=== PATIENT | female | born 1950 | race Caucasian/White ===

== ENCOUNTER → 2016-11-13 | Outpatient (CLI) | payer MEDICARE, MEDICAID ==
--- NOTE | 2016-11-13 12:52 | RAD ---
Indication renal failure. The history of right nephrectomy several decades earlier is noted. Grayscale imaging of the left kidney was performed. No prior imaging of the kidneys is available. The left kidney measures 12.2 x 4.6 x 6.5 cm and appears unremarkable showing no evidence of hydronephrosis or mass. The urinary bladder appeared grossly normal. IMPRESSION: Morphologically normal left kidney. Surgical absence of the right kidney
== END | disposition home or self-care (01) ==
LOC: US 12:07
PROVIDERS: ATTEND Internal Medicine Nephrology
DX: N17.9 Acute kidney failure, unspecified (principal); Z90.5 Acquired absence of kidney
CPT/HCPCS: 76775

== ENCOUNTER 2017-01-16 14:19 | Inpatient (IN) | payer MEDICARE, MEDICAID ==
[~2017-01-16] VITALS: Ht 160 cm; Wt 126.1 kg
[2017-01-16] MEDS ORDERED: IV NORMAL SALINE 1000ML BAG 1,000 ML IV SCH (15:15)
[2017-01-16] MEDS ORDERED: ONDANSETRON PF 4 MG/2 ML VIAL. IV ONE (15:15)
--- NOTE | 2017-01-16 15:23 | EKG ---
[facility] [address] [place] [address] Test Date: 2017-01-16 Test Time: 14:33:08 Pat Name: SILVERIO PETERSEN Department: Room: Gender: F [employer] Specialist: : 1950 Requested By: FIFI CARTWRIGHT Order Number: [id number] Reading MD: Measurements Intervals [place] Rate: 84 P: 42 MT: 146 QRS: 39 QRSD: 82 T: 34 QT: 344 QTc: 410 Interpretive Statements SINUS RHYTHM QRS(T) CONTOUR ABNORMALITY CONSIDER ANTEROLATERAL MYOCARDIAL DAMAGE RI6.01 Unconfirmed report No previous ECG available for comparison
[2017-01-16] MEDS: FENTANYL PF 100 MCG/2 ML VIAL. IV PRN (15:51)
--- NOTE | 2017-01-16 16:02 | RAD ---
EXAM: Two view abdomen with one view chest HISTORY: Epigastric pain. COMPARISON: None. FINDINGS: A frontal view of the chest and supine/upright views of the abdomen are obtained. There are no confluent infiltrates. There is no pneumothorax or pleural effusion. The heart is not enlarged. There are atherosclerotic calcifications of the aorta. There is no pneumoperitoneum. There are no distended small bowel loops or significant air-fluid levels. There is gas distally. There are surgical clips in the right upper quadrant and right paraspinal region. There are moderate degenerative changes of the lower lumbar spine. IMPRESSION: 1. No confluent infiltrates. 2. No evidence of obstruction.
--- NOTE | 2017-01-16 16:14 | PHYS DOC ---
Past Medical History Past Medical History: CHF, Depression, Diabetes-Type II, Hypertension, Hypothyroid, Other Additional Past Medical Histor: NEUROPATHY Past Surgical History: Cholecystectomy, Other Additional Past Surgical Histo: R KIDNEY REMOVED Additional Information: SMOKES E-CIGARETTE Alcohol Use: None Drug Use: None Adult General Chief Complaint Chief Complaint: ABDOMINAL PAIN HPI HPI Patient is a 66 year old female who presents with complaint of abdominal pain. Patient states that her pain started this morning upon awakening. Patient states pain is located across her upper abdomen. Patient says pain is dull and rates pain as 8 out of 10 currently. Patient states that she is having 10 out of 10 pain in her right foot with weightbearing. Patient states that she is unable to ambulate at this time due to pain. Patient denies any redness or swelling to the foot. Patient denies any injuries. Patient takes gabapentin for neuropathy and states that she has not missed any doses. Patient states that she has been diagnosed recently with heart murmur and was supposed to get an echocardiogram today as ordered by Dr. Fraire but denies any known heart problems. On review of patient's chart, the patient has history of congestive heart failure, hypertension, diabetes mellitus, and diabetic neuropathy. Review of Systems Review of Systems Constitutional: Denies fever or chills [] Eyes: Denies change in visual acuity, redness, or eye pain [] HENT: Denies nasal congestion or sore throat [] Respiratory: Denies cough or shortness of breath [] Cardiovascular: Denies chest pain or edema [] GI: Abdominal pain, denies nausea, vomiting, bloody stools or diarrhea [] : Denies dysuria or hematuria [] Musculoskeletal: Denies back pain or joint pain [] Integument: Denies rash or skin lesions [] Neurologic: Neuropathy, denies headache, focal weakness or sensory changes [] Current Medications Current Medications Current Medications Medications (Trade) Dose Ordered Sig/[place] Start Time Stop Time Status Last Admin Dose Admin Fentanyl Citrate 50 mcg 50 mcg PRN Q15MIN PRN 01/16/17 15:15 01/17/17 15:14 01/16/17 15:51 50 MCG Ondansetron HCl (Zofran) 4 mg 1X ONCE 01/16/17 15:15 01/16/17 15:22 DC 01/16/17 15:50 4 MG Sodium Chloride (Iv Sodium Chloride 0.9% 1000ml Bag) 1,000 ml @ 100 mls/hr Q10H 01/16/17 15:15 01/17/17 01:14 01/16/17 15:50 100 MLS/HR Allergies Allergies Allergies Coded Allergies Type Severity Reaction Last Updated Verified castor oil Allergy Intermediate rash 08/21/15 No Physical Exam Physical Exam Constitutional: Alert, afebrile, no acute distress. [] HENT: Normocephalic, atraumatic, bilateral external ears normal, oropharynx moist, no oral exudates, nose normal. [] Eyes: PERRLA, EOMI, conjunctiva normal, no discharge. [] Neck: Normal range of motion, no tenderness, supple, no stridor. [] Cardiovascular:Heart rate regular rhythm, no murmur [] Lungs & Thorax: Bilateral breath sounds clear to auscultation [] Abdomen: Bowel sounds normal, soft, epigastric tenderness palpation, no guarding or rebound tenderness, no masses, no pulsatile masses. [] Skin: Warm, dry, no erythema, no rash. [] Back: No tenderness, no CVA tenderness. [] Extremities: No obvious deformities to the lower extremities, hyperesthesia along the ventral aspect of the right foot, no erythema, 2+ pitting edema in the bilateral lower extremities. [] Neurologic: Alert and oriented X 3, normal motor function, normal sensory function, no focal deficits noted. [] Current Patient Data Vital Signs Vital Signs Date Time Temp Pulse Resp B/P Pulse Ox O2 Delivery O2 Flow Rate FiO2 01/16/17 14:19 98.3 90 20 171/66 97 Room Air 98.3 Lab Values Laboratory Tests Test 01/16/17 15:53 01/16/17 16:08 White Blood Count 8.8x10^3/uL (4.0-11.0) Red Blood Count 4.02x10^6/uL (3.50-5.40) Hemoglobin 12.2g/dL (12.0-15.5) Hematocrit 37.8% (36.0-47.0) Mean Corpuscular Volume 94fL (79-100) Mean Corpuscular Hemoglobin 30pg (25-35) Mean Corpuscular Hemoglobin Concent 32g/dL (31-37) Red Cell Distribution Width 12.9% (11.5-14.5) Platelet Count 145x10^3/uL (140-400) Neutrophils (%) (Auto) 56% (31-73) Lymphocytes (%) (Auto) 31% (24-48) Monocytes (%) (Auto) 9% (0-9) Eosinophils (%) (Auto) 4% (0-3) H Basophils (%) (Auto) 1% (0-3) Neutrophils # (Auto) 5.0x10^3uL (1.8-7.7) Lymphocytes # (Auto) 2.7x10^3/uL (1.0-4.8) Monocytes # (Auto) 0.7x10^3/uL (0.0-1.1) Eosinophils # (Auto) 0.3x10^3/uL (0.0-0.7) Basophils # (Auto) 0.1x10^3/uL (0.0-0.2) Sodium Level 144mmol/L (136-145) Potassium Level 4.5mmol/L (3.5-5.1) Chloride Level 105mmol/L (98-107) Carbon Dioxide Level 30mmol/L (21-32) Anion Gap 9 (6-14) Blood Urea Nitrogen 69mg/dL (7-20) H Creatinine 2.1mg/dL (0.6-1.0) H Estimated GFR (Cockcroft-Gault) 23.5 BUN/Creatinine Ratio 33 (6-20) H Glucose Level 115mg/dL (70-99) H Calcium Level 9.2mg/dL (8.5-10.1) Total Bilirubin 0.3mg/dL (0.2-1.0) Aspartate Amino Transferase (AST) 18U/L (15-37) Alanine Aminotransferase (ALT) 17U/L (14-59) Alkaline Phosphatase 67U/L (46-116) Creatine Kinase 126U/L (26-192) Creatine Kinase MB (Mass) 0.8ng/mL (0.0-3.6) Creatine Kinase MB Relative Index 0.6% (0-4) Troponin I Quantitative < 0.017ng/mL (0.000-0.055) Total Protein 6.7g/dL (6.4-8.2) Albumin 3.1g/dL (3.4-5.0) L Albumin/Globulin Ratio 0.9 (1.0-1.7) L Lipase 178U/L (73-393) Urine Color Yellow Urine Clarity Cloudy Urine pH 6.5 Urine Specific [place] 1.015 Urine Protein Negativemg/dL (NEG-TRACE) Urine Glucose (UA) Negativemg/dL (NEG) Urine Ketones (Stick) Negativemg/dL (NEG) Urine Blood Negative (NEG) Urine Nitrite Negative (NEG) Urine Bilirubin Negative (NEG) Urine Urobilinogen Dipstick 0.2mg/dL (0.2 mg/dL) Urine Leukocyte Esterase Large (NEG) Urine RBC 0/HPF (0-2) Urine WBC 11-20/HPF (0-4) Urine Squamous Epithelial Cells Mod/LPF Urine Amorphous Sediment Present/HPF Urine Bacteria Moderate/HPF (0-FEW) Urine Mucus Mod/LPF Laboratory Tests 01/16/17 15:53 Laboratory Tests 01/16/17 15:53 EKG EKG Interpreted by me: Heart rate 84, sinus rhythm, normal intervals, normal axis, no acute ST/T-wave abnormalities present [] Radiology/Procedures Radiology/Procedures [facility] [address] [place] [address] IMAGING REPORT Signed PATIENT: SILVERIO PETERSEN ACCOUNT: [id number] : 1950 LOCATION: ER AGE: 66 SEX: F EXAM STATUS: REG ER ORD. PHYSICIAN: FIFI CARTWRIGHT MD REASON: upper abdominal pain PROCEDURE: ACUTE ABDOMEN SERIES EXAM: Two view abdomen with one view chest HISTORY: Epigastric pain. COMPARISON: None. FINDINGS: A frontal view of the chest and supine/upright views of the abdomen are obtained. There are no confluent infiltrates. There is no pneumothorax or pleural effusion. The heart is not enlarged. There are atherosclerotic calcifications of the aorta. There is no pneumoperitoneum. There are no distended small bowel loops or significant air-fluid levels. There is gas distally. There are surgical clips in the right upper quadrant and right paraspinal region. There are moderate degenerative changes of the lower lumbar spine. IMPRESSION: 1. No confluent infiltrates. 2. No evidence of obstruction. DICTATED and SIGNED BY: FRANKLYN WEBER MD DATE: 01/16/17 0713 CC: FIFI CARTWRIGHT MD; Chad ALVARADO MD ~ [] Course & Med Decision Making Course & Med Decision Making Pertinent Labs and Imaging studies reviewed. (See chart for details) The patient was given fentanyl for pain in the emergency department. Despite treatment, the patient is unable to bear weight on her right foot. Patient was found have evidence of urinary tract infection. The patient states that she is currently unable to get herself to the restroom due to the pain in her foot and her sister also states that the patient is unable to be cared for at home currently. I spoke with Dr. Mayer who is on-call for Dr. Alvarado. He accepted care of patient in hospital for further treatment. Patient will be started on IV Rocephin for treatment of urinary tract infection. Dr. Mayer also confirm that the patient's BUN and creatinine were stable from previous lab draw in August 2016. Dragon Disclaimer Dragon Disclaimer This electronic medical record was generated, in whole or in part, using a voice recognition dictation system. Departure Departure Impression: Primary Impression: Right foot pain Additional Impressions: Diabetic neuropathy Urinary tract infection Chronic kidney disease, stage IV (severe) Congestive heart failure Disposition: ADMITTED INPATIENT Admitting Physician: Antoni Alvarado Condition: STABLE Referrals: Chad ALVARADO MD (PCP) Problem Qualifiers Additional Impressions: Diabetic neuropathy Diabetes mellitus type: type 2 Diabetes mellitus complication detail: diabetic polyneuropathy Qualified Code: E11.42 - Type 2 diabetes mellitus with diabetic polyneuropathy Urinary tract infection Urinary tract infection type: site unspecified Hematuria presence: without hematuria Qualified Code: N39.0 - Urinary tract infection, site not specified Congestive heart failure Congestive heart failure type: unspecified congestive heart failure type Congestive heart failure chronicity: chronic Qualified Code: I50.9 - Heart failure, unspecified FIFI CARTWRIGHT MD Jan 16, 2017 16:14
[2017-01-16 16:16] LABS: BASO # 0.1 x10^3/uL (0.0-0.2); BASO % 1 % (0-3); EOS % 4 % (0-3); HEMATOCRIT 37.8 % (36.0-47.0); HEMOGLOBIN 12.2 g/dL (12.0-15.5); LYMPH # 2.7 x10^3/uL (1.0-4.8); LYMPH % 31 % (24-48); MEAN CORPUSCULAR HEMOGLOBIN 30 pg (25-35); MEAN CORPUSCULAR HGB CONC 32 g/dL (31-37); MEAN CORPUSCULAR VOLUME 94 fL (79-100); MONO % 9 % (0-9); NEUT % 56 % (31-73); PLATELET COUNT 145 x10^3/uL (140-400); RED BLOOD COUNT 4.02 x10^6/uL (3.50-5.40); RED CELL DISTRIBUTION WIDTH 12.9 % (11.5-14.5); WHITE BLOOD COUNT 8.8 x10^3/uL (4.0-11.0)
[2017-01-16 16:32] LABS: BILIRUBIN,URINE NEGATIVE (NEG); GLUCOSE,URINE NEGATIVE (NEG); NITRITE,URINE NEGATIVE (NEG); PH,URINE 6.5; PROTEIN,URINE NEGATIVE (NEG-TRACE); UROBILINOGEN,URINE 0.2 mg/dL (0.2 mg/dL)
[2017-01-16 16:33] LABS: CALCIUM 9.2 mg/dL (8.5-10.1); CREATININE 2.1 mg/dL (0.6-1.0); GFR 23.5; POTASSIUM 4.5 mmol/L (3.5-5.1)
[2017-01-16 16:39] LABS: ALBUMIN 3.1 g/dL (3.4-5.0); ALBUMIN/GLOBULIN RATIO 0.9 (1.0-1.7); TOTAL BILIRUBIN 0.3 mg/dL (0.2-1.0); TOTAL PROTEIN 6.7 g/dL (6.4-8.2)
[2017-01-16 16:47] LABS: CKMB INDEX 0.6 % (0-4); CKMB MASS 0.8 ng/mL (0.0-3.6)
[2017-01-16 16:50] LABS: BACTERIA,URINE MODERATE /HPF (0-FEW); RBC,URINE 0 /HPF (0-2); SQUAMOUS EPITHELIAL CELL,UR MOD /LPF
[2017-01-16] MEDS ORDERED: FENTANYL PF 100 MCG/2 ML VIAL. IV PRN (17:15)
[2017-01-16] MEDS ORDERED: ONDANSETRON PF 4 MG/2 ML VIAL. IV PRN (17:15)
[2017-01-16] MEDS ORDERED: ACETAMINOPHEN 325 MG TABLET. PO PRN (17:15)
[2017-01-16] MEDS: CEFTRIAXONE SODIUM 1 GM in IV NORMAL SALINE 50ML 50 ML IV SCH (17:35)
[2017-01-16 19:00] VITALS: BP 124/55
[2017-01-16] MEDS: IV NORMAL SALINE 1000ML BAG 1,000 ML IV SCH (19:00)
[2017-01-16] MEDS ORDERED: LEVO25TA4 PO (20:04)
[2017-01-16] MEDS ORDERED: FURO40TA4 PO (20:04)
[2017-01-16] MEDS ORDERED: CITA10TA4 PO (20:04)
[2017-01-16] MEDS ORDERED: INSU100V8 SQ (20:04)
[2017-01-16] MEDS ORDERED: EZET1TAB4 PO (20:04)
[2017-01-16] MEDS ORDERED: GABA600T2 PO (20:04)
[2017-01-16] MEDS ORDERED: RIVA15TA PO (20:04)
[2017-01-16] MEDS ORDERED: INSU100V31 SQ (20:04)
[2017-01-16] MEDS ORDERED: GABA-586 PO (20:04)
[2017-01-16] MEDS ORDERED: POTA20TA82 PO (20:04)
[2017-01-16] MEDS ORDERED: INSU100C4 SQ (20:04)
[2017-01-16] MEDS ORDERED: LISI10TA2 PO (20:04)
[2017-01-16] MEDS ORDERED: METO5TAB4 PO (20:09)
[2017-01-16] MEDS ORDERED: ACET650T10 PO (20:10)
[2017-01-16] MEDS ORDERED: GABAPENTIN 300 MG CAPSULE. PO SCH (21:30)
[2017-01-16] MEDS: ACETAMINOPHEN 650 MG TABLET.ER PO SCH (22:35)
[2017-01-16] MEDS: SIMVASTATIN 20 MG TABLET PO SCH (22:36)
[2017-01-16] MEDS: CITALOPRAM 10 MG TABLET. PO SCH (22:36)
[2017-01-16] MEDS: LISINOPRIL 10 MG TABLET PO SCH (22:36)
[2017-01-16] MEDS: EZETIMIBE 10 MG TABLET PO SCH (22:37)
[2017-01-16] MEDS: INSULIN DETEMIR 300 UNITS/3 ML INSULN.PEN. SQ SCH (22:45)
[2017-01-16 23:40] VITALS: BP 102/63
[2017-01-17] MEDS: IV NORMAL SALINE 1000ML BAG 1,000 ML IV SCH ×2 (03:15→15:16)
[2017-01-17 03:16] VITALS: BP 116/58
[2017-01-17] MEDS: LEVOTHYROXINE 25 MCG TABLET. PO SCH (06:20)
[2017-01-17 06:27] LABS: BASO # 0.1 x10^3/uL (0.0-0.2); BASO % 1 % (0-3); EOS % 4 % (0-3); HEMATOCRIT 33.4 % (36.0-47.0); HEMOGLOBIN 11.1 g/dL (12.0-15.5); LYMPH # 3.2 x10^3/uL (1.0-4.8); LYMPH % 34 % (24-48); MEAN CORPUSCULAR HEMOGLOBIN 31 pg (25-35); MEAN CORPUSCULAR HGB CONC 33 g/dL (31-37); MEAN CORPUSCULAR VOLUME 92 fL (79-100); MONO % 9 % (0-9); NEUT % 53 % (31-73); PLATELET COUNT 143 x10^3/uL (140-400); RED BLOOD COUNT 3.62 x10^6/uL (3.50-5.40); RED CELL DISTRIBUTION WIDTH 13.1 % (11.5-14.5); WHITE BLOOD COUNT 9.4 x10^3/uL (4.0-11.0)
[2017-01-17 06:40] LABS: CALCIUM 8.4 mg/dL (8.5-10.1); CREATININE 2.2 mg/dL (0.6-1.0); GFR 22.3; POTASSIUM 4.5 mmol/L (3.5-5.1)
[2017-01-17] MEDS: INSULIN ASPART 300 UNITS/3 ML INSULN.PEN SQ SCH ×3 (07:30→19:54)
[2017-01-17 07:46] VITALS: BP 100/41
--- NOTE | 2017-01-17 08:23 | RAD ---
Right foot, 3 views, 01/16/2017: History: Foot pain There is moderate patchy bony demineralization. There are mild to moderate scattered degenerative changes, most prominent at the midfoot level. Mild deformity of the base of the fifth metatarsal is compatible with an old healed fracture. There also appears to be old posttraumatic changes at the medial malleolar level. No acute fracture or dislocation is identified. There is a moderate size inferior calcaneal spur. Arterial calcifications are present. There is mild subcutaneous edema about the foot and ankle. IMPRESSION: 1. Demineralization. 2. Moderate degenerative change. 3. No acute bony abnormality is detected.
--- NOTE | 2017-01-17 08:28 | PDOC ---
Provider Note Provider Note See admission H&P dictation #[id number] Impression: 1. rt foot pain with inability to ambulate: 2. UTI: 3. DM2 with neuropathy, prob contributing to above: LOBO LIAO MD Jan 17, 2017 08:28
[2017-01-17] MEDS: INSULIN DETEMIR 300 UNITS/3 ML INSULN.PEN. SQ SCH ×2 (09:00→22:03)
[2017-01-17] MEDS ORDERED: RIVAROXABAN 15 MG TABLET. PO SCH (09:00)
[2017-01-17] MEDS: FENTANYL PF 100 MCG/2 ML VIAL. IV PRN (10:31)
[2017-01-17] MEDS: GABAPENTIN 300 MG CAPSULE. PO SCH ×3 (10:32→22:15)
[2017-01-17] MEDS: LISINOPRIL 10 MG TABLET PO SCH ×3 (10:32→22:16)
[2017-01-17] MEDS: FUROSEMIDE 40 MG TABLET PO SCH (10:33)
[2017-01-17] MEDS: POTASSIUM CHLORIDE 20 MEQ TABLET.ER. PO SCH (10:33)
[2017-01-17] MEDS: ACETAMINOPHEN 650 MG TABLET.ER PO SCH ×3 (10:33→22:14)
[2017-01-17] MEDS: METOLAZONE 2.5 MG TABLET PO SCH (10:33)
[2017-01-17 11:18] VITALS: BP 136/42
[2017-01-17 14:56] VITALS: BP 100/44
[2017-01-17] MEDS: ANTI-COAG MONITOR BY PHARMACY. MC PRN (15:35)
[2017-01-17 19:05] VITALS: BP 142/54
[2017-01-17] MEDS: CEFTRIAXONE SODIUM 1 GM in IV NORMAL SALINE 50ML 50 ML IV SCH (19:50)
[2017-01-17] MEDS: CITALOPRAM 10 MG TABLET. PO SCH ×2 (21:57→22:16)
[2017-01-17] MEDS: EZETIMIBE 10 MG TABLET PO SCH ×2 (21:57→22:16)
[2017-01-17] MEDS: SIMVASTATIN 20 MG TABLET PO SCH ×2 (21:58→22:16)
[2017-01-17] MEDS: HYDROCODONE/APAP 5/325MG TABLET. PO PRN (22:16)
[2017-01-17 23:31] VITALS: BP 125/49
[2017-01-18 03:27] VITALS: BP 107/39
[2017-01-18] MEDS: LEVOTHYROXINE 25 MCG TABLET. PO SCH (06:26)
[2017-01-18 07:00] VITALS: BP 128/52
[2017-01-18] MEDS: ACETAMINOPHEN 650 MG TABLET.ER PO SCH ×2 (08:38→23:16)
[2017-01-18] MEDS: HYDROCODONE/APAP 5/325MG TABLET. PO PRN ×4 (08:38→23:16)
[2017-01-18] MEDS: GABAPENTIN 300 MG CAPSULE. PO SCH ×2 (08:39→23:17)
[2017-01-18] MEDS: LISINOPRIL 10 MG TABLET PO SCH ×2 (08:39→23:17)
[2017-01-18] MEDS: FUROSEMIDE 40 MG TABLET PO SCH (08:39)
[2017-01-18] MEDS: POTASSIUM CHLORIDE 20 MEQ TABLET.ER. PO SCH (08:39)
[2017-01-18] MEDS: INSULIN ASPART 300 UNITS/3 ML INSULN.PEN SQ SCH ×2 (08:48→17:31)
[2017-01-18] MEDS: INSULIN DETEMIR 300 UNITS/3 ML INSULN.PEN. SQ SCH ×2 (08:48→23:25)
[2017-01-18] MEDS: NYSTATIN TOPICAL POWDER 15GM BOTTLE. TP SCH ×2 (09:00→23:17)
[2017-01-18 11:00] VITALS: BP 116/47
--- NOTE | 2017-01-18 11:49 | PDOC ---
SUBJECTIVE Subjective Pt states that she can actually move her right foot today, although she is still having pain; now having increased pain in her left foot. OBJECTIVE Vital Signs Vital Signs Date Time Temp Pulse Resp B/P Pulse Ox O2 Delivery O2 Flow Rate FiO2 01/18/17 11:00 98.9 82 20 116/47 90 Room Air 98.9 01/18/17 09:38 95 Room Air 01/18/17 08:39 98 107/39 01/18/17 08:38 18 95 Room Air 01/18/17 08:00 Room Air 01/18/17 07:00 98.0 69 16 128/52 94 Room Air 98.0 01/18/17 03:27 98.2 98 16 107/39 95 Room Air 98.2 01/17/17 23:31 98.6 81 16 125/49 94 Room Air 98.6 01/17/17 23:20 20 01/17/17 22:16 20 95 Room Air 01/17/17 22:16 77 142/54 01/17/17 20:55 Room Air 01/17/17 19:05 98.6 77 16 142/54 95 Room Air 98.6 01/17/17 14:56 97.9 79 20 100/44 95 Room Air 97.9 I & O Intake and Output 01/18/17 07:00 Intake Total 3380 ml Balance 3380 ml Intake Oral 675 ml IV Total 2705 ml # Voids 4 PHYSICAL EXAM Physical Exam GEN: NAD, AOx3 HEENT: MMM, EOMI, no scleral icterus/injection Cardiac: RRR, no M/R/G Lungs: CTAB, regular breathing rate and effort Abd: non distended, NTTP Ext: chronic venous stasis changes with small ulcerations. Feet tender to touch bilaterally Neuro: CN2-12 GI ASSESSMENT/PLAN Assessment/Plan Pt is a 66yo CF admitted for inability to bear weight on right foot 1)Bilateral foot pain- pt's Uric acid level elevated, colchicine started. Pt has decreased pulses bilaterally, MARCO ordered. Pt has known peripheral neuropathy and has been continued on Gabapentin 2)Hx DVT- pt currently on Xarelto 15mg 3)DM2- HbA1C currently pending. Pt on Novolog 20 units with breakfast and supper and Levemir 50units BID. CTM 4)CHF- pt continued on Metolazone 5mg three times a week and Lasix 40mg 5)Hypothyroidsim- TSH pending. Pt continued on Levothyroxine 25mcg 6)HLD- pt continued on Simvastatin 20mg and Zetia 10mg 7)HTN- well controlled, pt continued on Lisinopril 10mg 8)Depression- pt continued on Citalopram 10mg 9)Possible UTI- pt started on Rocephin. Specimen appears dirty; culture pending 10)Anemia- mild, no active bleeding 11)Hypernatremia- mild. CTM 12)CKD- pt's Cr stable at 2.2 Pt appears dehydrated, will give IVF hydration. Problems: COMMENT Lab Laboratory Tests Test 01/17/17 16:25 01/17/17 20:29 01/18/17 07:55 Glucose (Fingerstick) 221mg/dL (70-99) 234mg/dL (70-99) 114mg/dL (70-99) CANDE MAY MD Jan 18, 2017 11:49
[2017-01-18] MEDS ORDERED: COLCHICINE 0.6 MG TABLET PO ONE (12:00)
[2017-01-18] MEDS ORDERED: IV NORMAL SALINE 1000ML BAG 1,000 ML IV ONE (12:30)
[2017-01-18 15:00] VITALS: BP 96/51
--- NOTE | 2017-01-18 16:28 | RAD ---
Lower extremity duplex artery ultrasound - bilateral 01/18/17 Indication: Increasing pain lower extremities. Comparison: None available. Procedure: Real-time grayscale, color-flow, duplex Doppler and spectral analysis of both lower extremity arterial system is performed and images are obtained.. Findings: The study is extremely limited due to patient's morbid obesity habitus. Evaluation was difficult. Technologist used power Doppler most of the time. There is extensive atheromatous plaquing seen bilaterally. Doppler interrogation reveals monophasic and dampened waveforms throughout. No areas of focally elevated peak systolic velocities to this focal stenosis seen. There is suboptimal evaluation of the peroneal or anterior tibial arteries Impression: 1. Study limited due to patient's large body habitus. 2. Extensive atheromatous plaquing involving both lower extremity arteries with a dampened monophasic waveforms throughout. 3. Calf arteries are not well evaluated
[2017-01-18] MEDS: CEFTRIAXONE SODIUM 1 GM in IV NORMAL SALINE 50ML 50 ML IV SCH (17:25)
[2017-01-18] MEDS: RIVAROXABAN 15 MG TABLET. PO SCH (17:26)
[2017-01-18 19:20] VITALS: BP 110/44
[2017-01-18] MEDS: EZETIMIBE 10 MG TABLET PO SCH (23:16)
[2017-01-18] MEDS: SIMVASTATIN 20 MG TABLET PO SCH (23:16)
[2017-01-18 23:31] VITALS: BP 119/48
[2017-01-19 03:15] VITALS: BP 102/36
[2017-01-19] MEDS: HYDROCODONE/APAP 5/325MG TABLET. PO PRN ×3 (06:13→20:40)
[2017-01-19] MEDS: LEVOTHYROXINE 25 MCG TABLET. PO SCH (06:13)
[2017-01-19 06:47] LABS: BASO % 1 % (0-3); EOS % 4 % (0-3); HEMATOCRIT 31.3 % (36.0-47.0); HEMOGLOBIN 10.2 g/dL (12.0-15.5); LYMPH # 2.5 x10^3/uL (1.0-4.8); LYMPH % 28 % (24-48); MEAN CORPUSCULAR HEMOGLOBIN 31 pg (25-35); MEAN CORPUSCULAR HGB CONC 33 g/dL (31-37); MEAN CORPUSCULAR VOLUME 94 fL (79-100); MONO % 9 % (0-9); NEUT % 59 % (31-73); PLATELET COUNT 130 x10^3/uL (140-400); RED BLOOD COUNT 3.32 x10^6/uL (3.50-5.40); RED CELL DISTRIBUTION WIDTH 12.9 % (11.5-14.5); WHITE BLOOD COUNT 9.1 x10^3/uL (4.0-11.0)
[2017-01-19 06:59] LABS: CALCIUM 8.3 mg/dL (8.5-10.1); CREATININE 2.2 mg/dL (0.6-1.0); GFR 22.3; POTASSIUM 4.4 mmol/L (3.5-5.1)
[2017-01-19 07:00] VITALS: BP 103/39
[2017-01-19] MEDS: LISINOPRIL 10 MG TABLET PO SCH ×2 (09:00→20:39)
[2017-01-19] MEDS: COLCHICINE 0.6 MG TABLET PO SCH (10:00)
[2017-01-19] MEDS: FUROSEMIDE 40 MG TABLET PO SCH (10:00)
[2017-01-19] MEDS: ACETAMINOPHEN 650 MG TABLET.ER PO SCH ×2 (10:00→20:40)
[2017-01-19] MEDS: POTASSIUM CHLORIDE 20 MEQ TABLET.ER. PO SCH (10:01)
[2017-01-19] MEDS: GABAPENTIN 300 MG CAPSULE. PO SCH ×2 (10:01→20:40)
[2017-01-19] MEDS: NYSTATIN TOPICAL POWDER 15GM BOTTLE. TP SCH ×2 (10:32→20:41)
[2017-01-19] MEDS: INSULIN DETEMIR 300 UNITS/3 ML INSULN.PEN. SQ SCH ×2 (10:36→20:52)
[2017-01-19] MEDS: INSULIN ASPART 300 UNITS/3 ML INSULN.PEN SQ SCH ×4 (10:37→17:29)
[2017-01-19 11:00] VITALS: BP 117/44
--- NOTE | 2017-01-19 11:50 | PDOC ---
SUBJECTIVE Subjective Pt states that pain has improved, but still present. She rates her pain at 170, 000 out of 10 when she walked to the toilet earlier today, but did not last as long as it had. She is requesting to have somebody massage her feet; discussed that that may not be possible during her hospitalization. OBJECTIVE Vital Signs Vital Signs Date Time Temp Pulse Resp B/P Pulse Ox O2 Delivery O2 Flow Rate FiO2 01/19/17 09:00 68 103/39 01/19/17 07:00 98.0 68 16 103/39 94 Room Air 98.0 01/19/17 03:15 99.3 84 18 102/36 90 Room Air 99.3 01/18/17 23:31 98.7 85 18 119/48 90 Room Air 98.7 01/18/17 23:17 97 110/44 01/18/17 20:00 Room Air 01/18/17 19:20 99.2 97 22 110/44 90 Room Air 99.2 01/18/17 18:26 16 91 Room Air 01/18/17 17:26 16 91 Room Air 01/18/17 15:00 98.8 71 20 96/51 91 Room Air 98.8 01/18/17 12:28 16 90 Room Air I & O Intake and Output 01/19/17 07:00 Intake Total 240 ml Balance 240 ml Intake Oral 240 ml # Voids 5 PHYSICAL EXAM Physical Exam GEN: NAD, AOx3 HEENT: MMM, EOMI, no scleral icterus/injection Cardiac: RRR, no M/R/G Lungs: CTAB, regular breathing rate and effort Abd: non distended, NTTP Ext: chronic venous stasis changes with small ulcerations. Feet tender to touch bilaterally Neuro: CN2-12 GI ASSESSMENT/PLAN Assessment/Plan Pt is a 66yo CF admitted for inability to bear weight on right foot 1)Bilateral foot pain- pt's Uric acid level elevated, colchicine started. Pt has decreased pulses bilaterally, MARCO showing dampened monophasic waves throughout LE. Pt has known peripheral neuropathy and has been continued on Gabapentin 2)Hx DVT- pt currently on Xarelto 15mg 3)DM2- HbA1C currently pending. Pt on Novolog 20 units with breakfast and supper and Levemir 50units BID. BS moderately controlled, will add SSI 4)CHF- pt continued on Metolazone 5mg three times a week and Lasix 40mg 5)Hypothyroidsim- well controlled with TSH of 1.701 this admission. Pt continued on Levothyroxine 25mcg 6)HLD- pt continued on Simvastatin 20mg and Zetia 10mg 7)HTN- well controlled, pt continued on Lisinopril 10mg 8)Depression- pt continued on Citalopram 10mg 9)Possible UTI- pt started on Rocephin. Culture showing mixed edvin, will D/C Rocephin 10)Anemia- mild, no active bleeding 11)Hypernatremia- resolved with IVF hydration 12)CKD- pt's Cr stable at 2.2 Problems: COMMENT Lab Laboratory Tests Test 01/18/17 13:50 01/18/17 16:28 01/18/17 21:34 01/19/17 05:48 Thyroid Stimulating Hormone (TSH) 1.701uIU/mL (0.358-3.74) Glucose (Fingerstick) 198mg/dL (70-99) 107mg/dL (70-99) White Blood Count 9.1x10^3/uL (4.0-11.0) Red Blood Count 3.32x10^6/uL (3.50-5.40) Hemoglobin 10.2g/dL (12.0-15.5) Hematocrit 31.3% (36.0-47.0) Mean Corpuscular Volume 94fL (79-100) Mean Corpuscular Hemoglobin 31pg (25-35) Mean Corpuscular Hemoglobin Concent 33g/dL (31-37) Red Cell Distribution Width 12.9% (11.5-14.5) Platelet Count 130x10^3/uL (140-400) Neutrophils (%) (Auto) 59% (31-73) Lymphocytes (%) (Auto) 28% (24-48) Monocytes (%) (Auto) 9% (0-9) Eosinophils (%) (Auto) 4% (0-3) Basophils (%) (Auto) 1% (0-3) Neutrophils # (Auto) 5.4x10^3uL (1.8-7.7) Lymphocytes # (Auto) 2.5x10^3/uL (1.0-4.8) Monocytes # (Auto) 0.8x10^3/uL (0.0-1.1) Eosinophils # (Auto) 0.3x10^3/uL (0.0-0.7) Basophils # (Auto) 0.0x10^3/uL (0.0-0.2) Sodium Level 145mmol/L (136-145) Potassium Level 4.4mmol/L (3.5-5.1) Chloride Level 105mmol/L (98-107) Carbon Dioxide Level 32mmol/L (21-32) Anion Gap 8 (6-14) Blood Urea Nitrogen 59mg/dL (7-20) Creatinine 2.2mg/dL (0.6-1.0) Estimated GFR (Cockcroft-Gault) 22.3 Glucose Level 148mg/dL (70-99) Calcium Level 8.3mg/dL (8.5-10.1) CANED MAY MD Jan 19, 2017 11:50
[2017-01-19] MEDS ORDERED: DEXTROSE 50% 25 GM / 50ML DISP.SYRIN. IV PRN (12:00)
[2017-01-19 15:00] VITALS: BP 114/45
[2017-01-19] MEDS: RIVAROXABAN 15 MG TABLET. PO SCH (17:24)
[2017-01-19 19:00] VITALS: BP 134/48
[2017-01-19] MEDS: SIMVASTATIN 20 MG TABLET PO SCH (20:40)
[2017-01-19] MEDS: CITALOPRAM 10 MG TABLET. PO SCH (20:40)
[2017-01-19] MEDS: EZETIMIBE 10 MG TABLET PO SCH (20:40)
[2017-01-19 23:29] VITALS: BP 112/33
[2017-01-20 03:16] VITALS: BP 104/33
[2017-01-20] MEDS: LEVOTHYROXINE 25 MCG TABLET. PO SCH (06:08)
[2017-01-20 07:00] VITALS: BP 120/44
[2017-01-20] MEDS: INSULIN ASPART 300 UNITS/3 ML INSULN.PEN SQ SCH ×5 (08:00→17:10)
[2017-01-20] MEDS: METOLAZONE 2.5 MG TABLET PO SCH (08:15)
[2017-01-20] MEDS: LISINOPRIL 10 MG TABLET PO SCH ×2 (08:15→22:28)
[2017-01-20] MEDS: ACETAMINOPHEN 650 MG TABLET.ER PO SCH ×2 (08:16→22:29)
[2017-01-20] MEDS: FUROSEMIDE 40 MG TABLET PO SCH (08:16)
[2017-01-20] MEDS: COLCHICINE 0.6 MG TABLET PO SCH ×3 (08:16→22:33)
[2017-01-20] MEDS: GABAPENTIN 300 MG CAPSULE. PO SCH ×2 (08:17→22:28)
[2017-01-20] MEDS: POTASSIUM CHLORIDE 20 MEQ TABLET.ER. PO SCH (08:17)
[2017-01-20] MEDS: INSULIN DETEMIR 300 UNITS/3 ML INSULN.PEN. SQ SCH ×2 (08:28→22:36)
[2017-01-20] MEDS: NYSTATIN TOPICAL POWDER 15GM BOTTLE. TP SCH ×2 (08:29→21:00)
[2017-01-20] MEDS: HYDROCODONE/APAP 5/325MG TABLET. PO PRN ×2 (09:34→22:27)
[2017-01-20] MEDS: ALLOPURINOL 300 MG TABLET. PO SCH (09:34)
[2017-01-20 11:00] VITALS: BP 122/35
[2017-01-20] MEDS: ANTI-COAG MONITOR BY PHARMACY. MC PRN (12:01)
[2017-01-20 15:00] VITALS: BP 115/42
[2017-01-20] MEDS: RIVAROXABAN 15 MG TABLET. PO SCH (17:06)
--- NOTE | 2017-01-20 17:39 | PDOC ---
PROGRESS NOTES Subjective Subjective She still cannot ambulate, PT still recommending SNU, her uric acid was elevated and she is now on colchicine Objective Objective Vital Signs Date Time Temp Pulse Resp B/P Pulse Ox O2 Delivery O2 Flow Rate FiO2 01/20/17 15:00 98.3 72 16 115/42 89 Room Air 98.3 Intake and Output 01/20/17 07:00 Intake Total 100 ml Balance 100 ml Intake Oral 100 ml # Voids 2 Physical Exam Abdomen: Soft Heart: Regular rate Extremities: No clubbing, No cyanosis General: Alert, Cooperative HEENT: Other (blood coagulated near right lateral eyebrow from picking at a sore) Lungs: Clear to auscultation MUSCULOSKELETAL: Other (both ankles tender bur right is particularly tender with effusion and warmth) Neck: Supple Neuro: Normal speech Psych/Mental Status: Mental status NL Skin: Other (multiple excoriated sores) Assessment Assessment Problems Medical Problems: (1) Chronic kidney disease, stage IV (severe) - limiting additional confirmation of PAD by contrast studies Status: Acute (2) Congestive heart failure Status: Acute (3) Diabetic neuropathy with PAD Status: Acute (4) Left foot pain Status: Acute (5) Right foot pain - likely gout - needs SNU per therapy so will consult SS, case management Status: Acute (6) Urinary tract infection -disproven by culture, will stop ceftriaxone Status: Acute (7) UTI (urinary tract infection) Status: Acute Comment Review of Relevant I have reviewed the following items minda (where applicable) has been applied. Labs Laboratory Tests Test 01/18/17 21:34 01/19/17 05:48 01/19/17 07:54 01/19/17 11:57 Glucose (Fingerstick) 107mg/dL (70-99) 143mg/dL (70-99) 146mg/dL (70-99) White Blood Count 9.1x10^3/uL (4.0-11.0) Red Blood Count 3.32x10^6/uL (3.50-5.40) Hemoglobin 10.2g/dL (12.0-15.5) Hematocrit 31.3% (36.0-47.0) Mean Corpuscular Volume 94fL (79-100) Mean Corpuscular Hemoglobin 31pg (25-35) Mean Corpuscular Hemoglobin Concent 33g/dL (31-37) Red Cell Distribution Width 12.9% (11.5-14.5) Platelet Count 130x10^3/uL (140-400) Neutrophils (%) (Auto) 59% (31-73) Lymphocytes (%) (Auto) 28% (24-48) Monocytes (%) (Auto) 9% (0-9) Eosinophils (%) (Auto) 4% (0-3) Basophils (%) (Auto) 1% (0-3) Neutrophils # (Auto) 5.4x10^3uL (1.8-7.7) Lymphocytes # (Auto) 2.5x10^3/uL (1.0-4.8) Monocytes # (Auto) 0.8x10^3/uL (0.0-1.1) Eosinophils # (Auto) 0.3x10^3/uL (0.0-0.7) Basophils # (Auto) 0.0x10^3/uL (0.0-0.2) Sodium Level 145mmol/L (136-145) Potassium Level 4.4mmol/L (3.5-5.1) Chloride Level 105mmol/L (98-107) Carbon Dioxide Level 32mmol/L (21-32) Anion Gap 8 (6-14) Blood Urea Nitrogen 59mg/dL (7-20) Creatinine 2.2mg/dL (0.6-1.0) Estimated GFR (Cockcroft-Gault) 22.3 Glucose Level 148mg/dL (70-99) Calcium Level 8.3mg/dL (8.5-10.1) Test 01/19/17 16:48 01/19/17 20:44 01/20/17 07:02 01/20/17 11:23 Glucose (Fingerstick) 104mg/dL (70-99) 86mg/dL (70-99) 89mg/dL (70-99) 116mg/dL (70-99) Laboratory Tests Test 01/19/17 20:44 01/20/17 07:02 01/20/17 11:23 Glucose (Fingerstick) 86mg/dL (70-99) 89mg/dL (70-99) 116mg/dL (70-99) Microbiology 01/16/17 Urine Culture - Final, Complete 01/16/17 Urine Culture Result 1 (PHILLIP) - Final, Complete Medications Current Medications Fentanyl Citrate 50 mcg 50 mcg PRN Q15MIN PRN IV PAIN GREATER THAN 310 Last administered on 01/17/17 10:31; Start 01/16/17 at 15:15; Stop 01/17/17 at 15:14 ; Status DC Sodium Chloride (Iv Sodium Chloride 0.9% 1000ml Bag) 1,000 ml @ 100 mls/hr Q10H IV Last administered on 01/16/17 15:50; Start 01/16/17 at 15:15; Stop 01/17 at 01:14; Status DC Ondansetron HCl (Zofran) 4 mg 1X ONCE IV Last administered on 01/16/17 15:50; Start 01/16/17 at 15:15; Stop 01/16/17 at 15:22; Status DC Ondansetron HCl (Zofran) 4 mg PRN Q8HRS PRN IV NAUSEA/VOMITING; Start 01/16/17 at 17:15; Stop 01/17/17 at 17:14; Status DC Fentanyl Citrate 50 mcg 50 mcg PRN Q2HR PRN IV PAIN; Start 01/16/17 at 17:15; Stop 01/17/17 at 17:14; Status DC Sodium Chloride (Iv Sodium Chloride 0.9% 1000ml Bag) 1,000 ml @ 100 mls/hr Q10H IV Last administered on 01/17/17 15:16; Start 01/16/17 at 17:15; Stop 08/26 at 17:14; Status DC Acetaminophen 650 mg 650 mg PRN Q4HRS PRN PO FEVER; Start 01/16/17 at 17:15; Stop 01/17/17 at 17:14; Status DC Ceftriaxone Sodium/Sodium Chloride (Rocephin/Iv Sodium Chloride 0.9% 50ml) 50 ml @ 100 mls/hr Q24H IV Last administered on 01/18/17 17:25; Start 01/16/17 at 18:00; Stop 01/19/17 at 11:51; Status DC Acetaminophen (Tylenol Arthritis) 650 mg BID PO Last administered on 01/20/17 08:16; Start 01/16/17 at 21:00 Citalopram Hydrobromide (Celexa) 10 mg HS PO Last administered on 01/19/17 20: 40; Start 01/16/17 at 21:00 Furosemide (Lasix) 40 mg DAILY PO Last administered on 01/20/17 08:16; Start 01/17/17 at 09:00 Gabapentin (Neurontin) 300 mg DAILY PO Last administered on 01/20/17 08:17; Start 01/17/17 at 09:00 Insulin Aspart (Novolog) 20 units DAILYBFRSUP SQ Last administered on 17:10; Start 01/17/17 at 17:00 Levothyroxine Sodium (Synthroid) 25 mcg DAILY07 PO Last administered on 06:08; Start 01/17/17 at 07:00 Lisinopril (Prinivil) 10 mg BID PO Last administered on 01/20/17 08:15; Start 01/16/17 at 21:00 Rivaroxaban (Xarelto) 15 mg DAILY PO Last administered on 01/17/17 10:32; Start 01/17/17 at 09:00; Stop 01/17/17 at 18:16; Status DC EZETIMIBE (Zetia) 10 mg QHS PO Last administered on 01/19/17 20:40; Start 01/16 at 21:30 Gabapentin (Neurontin) 300 mg QHS PO ; Start 01/16/17 at 21:30; Stop 01/16/17 at 21:30; Status DC Insulin Aspart (Novolog) 15 units DAILYWBKFT SQ Last administered on 01/20/17 08:27; Start 01/17/17 at 07:30 Insulin Detemir (Levemir) 50 units BID SQ Last administered on 01/20/17 08:28 ; Start 01/16/17 at 21:30 Metolazone (Zaroxolyn) 5 mg 3X/WEEK PO Last administered on 01/20/17 08:15; Start 01/17/17 at 09:00 Potassium Chloride (Klor-Con) 20 meq DAILYWBKFT PO Last administered on 08:17; Start 01/17/17 at 08:00 Info (Anti-Coagulation Monitoring By Pharmacy) 1 each PRN DAILY PRN MC SEE COMMENTS Last administered on 01/20/17 12:01; Start 01/16/17 at 21:15 Simvastatin (Zocor) 20 mg HS PO Last administered on 01/19/17 20:40; Start 01/16/17 at 21:30 Gabapentin (Neurontin) 600 mg QHS PO Last administered on 01/19/17 20:40; Start 01/16/17 at 21:30 Acetaminophen/ Hydrocodone Bitart (Lortab 5/325) 1 tab PRN Q4HRS PRN PO PAIN Last administered on 01/20/17 09:34; Start 01/17/17 at 08:15 Rivaroxaban (Xarelto) 15 mg DAILYWSUP PO Last administered on 01/20/17 17:06; Start 01/18/17 at 17:00 Nystatin (Nystop) 1 stephen BID TP Last administered on 01/20/17 08:29; Start 09/26 at 09:00 Colchicine (Colcrys) 1.2 mg 1X ONCE PO Last administered on 01/18/17 12:28; Start 01/18/17 at 12:00; Stop 01/18/17 at 12:01; Status DC Colchicine 0.6 mg 0.6 mg DAILY PO Last administered on 01/20/17 08:16; Start 01/19/17 at 09:00; Stop 01/20/17 at 13:33; Status DC Sodium Chloride (Iv Sodium Chloride 0.9% 1000ml Bag) 1,000 ml @ 100 mls/hr 1X ONCE IV Last administered on 01/18/17 12:28; Start 01/18/17 at 12:30; Stop 09/26 at 22:29; Status DC Insulin Aspart (Novolog) 0-7 UNITS TIDWMEALS SQ Last administered on 01/20/17 17:09; Start 01/19/17 at 12:00 Dextrose 12.5 gm PRN Q15MIN PRN IV SEE COMMENTS; Start 01/19/17 at 12:00 Allopurinol (Zyloprim) 300 mg DAILY PO Last administered on 01/20/17 09:34; Start 01/20/17 at 09:00 Colchicine (Colcrys) 0.6 mg Q6H PO Last administered on 01/20/17 14:45; Start 01/20/17 at 14:00 Active Scripts Active Reported Arthritis Pain Reliever (Acetaminophen) 650 Mg Tablet.er 650 Mg PO BID Metolazone 5 Mg Tablet 5 Mg PO 3X/WEEK Novolog (Insulin Aspart) 100 Unit/1 Ml Vial 20 Unit SQ AFTRNOON Novolog (Insulin Aspart) 100 Unit/1 Ml Cartridge 15 Unit SQ DAILY08 Lantus (Insulin Glargine,Hum.rec.anlog) 100 Unit/1 Ml Vial 50 Unit SQ BIDAC Potassium Chloride 20 Meq Tablet.er 20 Meq PO DAILY Gabapentin 600 Mg Tablet 600 Mg PO HS Gabapentin 300 Mg Capsule 300 Mg PO DAILY Lisinopril 10 Mg Tablet 1 Tab PO BID Xarelto (Rivaroxaban) 15 Mg Tablet 15 Mg PO DAILY Furosemide 40 Mg Tablet 1 Tab PO DAILY Vytorin 10-20 Mg Tablet (Ezetimibe/Simvastatin) 1 Each Tablet 1 Tab PO DAILY Citalopram Hbr (Citalopram Hydrobromide) 10 Mg Tablet 1 Tab PO HS Levothyroxine Sodium 25 Mcg Tablet 1 Tab PO DAILY Vitals/I & O Vital Sign - Last 24 Hours 01/19/17 01/19/17 01/19/17 01/19/17 19:00 20:00 20:39 23:29 Temp 97.9 98.6 97.9 98.6 Pulse 77 77 75 Resp 18 18 B/P 134/48 139/48 112/33 Pulse Ox 91 96 O2 Delivery Room Air Room Air Room Air 01/20/17 01/20/17 01/20/17 01/20/17 03:16 07:00 07:40 08:15 Temp 98.1 98.1 98.1 98.1 Pulse 69 69 69 Resp 16 16 B/P 104/33 120/44 120/44 Pulse Ox 90 89 O2 Delivery Room Air Room Air Room Air 01/20/17 01/20/17 01/20/17 01/20/17 09:34 11:00 11:06 15:00 Temp 98.1 98.3 98.1 98.3 Pulse 74 72 Resp 20 16 B/P 122/35 115/42 Pulse Ox 91 89 O2 Delivery Room Air Room Air Room Air Room Air Intake and Output 01/19/17 01/19/17 01/20/17 15:00 23:00 07:00 Intake Total 100 ml Balance 100 ml Chad SHAIKH MD Jan 20, 2017 17:39
[2017-01-20 19:00] VITALS: BP 124/44
[2017-01-20] MEDS: EZETIMIBE 10 MG TABLET PO SCH (22:28)
[2017-01-20] MEDS: CITALOPRAM 10 MG TABLET. PO SCH (22:29)
[2017-01-20] MEDS: SIMVASTATIN 20 MG TABLET PO SCH (22:29)
[2017-01-20 23:22] VITALS: BP 129/43
[2017-01-21] MEDS: COLCHICINE 0.6 MG TABLET PO SCH ×4 (03:30→21:01)
[2017-01-21 03:38] VITALS: BP 115/41
[2017-01-21] MEDS: LEVOTHYROXINE 25 MCG TABLET. PO SCH (06:07)
[2017-01-21 07:10] VITALS: BP 126/51
[2017-01-21] MEDS: INSULIN ASPART 300 UNITS/3 ML INSULN.PEN SQ SCH ×5 (08:00→18:21)
--- NOTE | 2017-01-21 08:24 | PDOC ---
PROGRESS NOTES Subjective Subjective Her pain is better in her feet, she is able to move them in bed and she is able to get to the commode with assist, she does not want to go to SNU, she denies chest pain, SOA, cough, bladder symptoms. She has had a good BM finally. No further bleeding problems Objective Objective Vital Signs Date Time Temp Pulse Resp B/P Pulse Ox O2 Delivery O2 Flow Rate FiO2 01/21/17 07:10 97.9 64 16 126/51 90 Room Air 97.9 Intake and Output 01/21/17 07:00 Intake Total 120 ml Balance 120 ml Intake Oral 120 ml # Voids 5 # Bowel Movements 2 Physical Exam Abdomen: Normal bowel sounds, Soft Heart: Regular rate Extremities: No clubbing, No cyanosis General: Alert, Oriented X3, Cooperative HEENT: Atraumatic Lungs: Clear to auscultation MUSCULOSKELETAL: Other (mild ankle tenderness on left, moderate on right) Neck: Supple Neuro: Normal speech Psych/Mental Status: Mental status NL Skin: No breakdown Assessment Assessment Problems Medical Problems: (1) Chronic kidney disease, stage IV (severe) - stable Status: Acute (2) Congestive heart failure Status: Acute (3) Diabetic neuropathy Status: Acute (4) Left foot pain Status: Acute (5) Right foot pain - appears to be gout, improved with colchicine and allopurinol, she is declining SNU so hopefully she will improve enough to discharge later today Status: Acute (6) Urinary tract infection - disproven by culture, off antibiotics Status: Acute (7) UTI (urinary tract infection) Status: Acute Comment Review of Relevant I have reviewed the following items minda (where applicable) has been applied. Labs Laboratory Tests Test 01/19/17 11:57 01/19/17 16:48 01/19/17 20:44 01/20/17 07:02 Glucose (Fingerstick) 146mg/dL (70-99) 104mg/dL (70-99) 86mg/dL (70-99) 89mg/dL (70-99) Test 01/20/17 11:23 01/20/17 16:53 01/20/17 21:08 01/21/17 07:17 Glucose (Fingerstick) 116mg/dL (70-99) 158mg/dL (70-99) 140mg/dL (70-99) 125mg/dL (70-99) Laboratory Tests Test 01/20/17 11:23 01/20/17 16:53 01/20/17 21:08 01/21/17 07:17 Glucose (Fingerstick) 116mg/dL (70-99) 158mg/dL (70-99) 140mg/dL (70-99) 125mg/dL (70-99) Microbiology 01/16/17 Urine Culture - Final, Complete 01/16/17 Urine Culture Result 1 (PHILLIP) - Final, Complete Medications Current Medications Fentanyl Citrate 50 mcg 50 mcg PRN Q15MIN PRN IV PAIN GREATER THAN 01/17 Last administered on 01/17/17 10:31; Start 01/16/17 at 15:15; Stop 01/17/17 at 15:14 ; Status DC Sodium Chloride (Iv Sodium Chloride 0.9% 1000ml Bag) 1,000 ml @ 100 mls/hr Q10H IV Last administered on 01/16/17 15:50; Start 01/16/17 at 15:15; Stop 01/17 at 01:14; Status DC Ondansetron HCl (Zofran) 4 mg 1X ONCE IV Last administered on 01/16/17 15:50; Start 01/16/17 at 15:15; Stop 01/16/17 at 15:22; Status DC Ondansetron HCl (Zofran) 4 mg PRN Q8HRS PRN IV NAUSEA/VOMITING; Start 01/16/17 at 17:15; Stop 01/17/17 at 17:14; Status DC Fentanyl Citrate 50 mcg 50 mcg PRN Q2HR PRN IV PAIN; Start 01/16/17 at 17:15; Stop 01/17/17 at 17:14; Status DC Sodium Chloride (Iv Sodium Chloride 0.9% 1000ml Bag) 1,000 ml @ 100 mls/hr Q10H IV Last administered on 01/17/17 15:16; Start 01/16/17 at 17:15; Stop 08/26 at 17:14; Status DC Acetaminophen 650 mg 650 mg PRN Q4HRS PRN PO FEVER; Start 01/16/17 at 17:15; Stop 01/17/17 at 17:14; Status DC Ceftriaxone Sodium/Sodium Chloride (Rocephin/Iv Sodium Chloride 0.9% 50ml) 50 ml @ 100 mls/hr Q24H IV Last administered on 01/18/17 17:25; Start 01/16/17 at 18:00; Stop 01/19/17 at 11:51; Status DC Acetaminophen (Tylenol Arthritis) 650 mg BID PO Last administered on 01/20/17 22:29; Start 01/16/17 at 21:00 Citalopram Hydrobromide (Celexa) 10 mg HS PO Last administered on 01/20/17 22: 29; Start 01/16/17 at 21:00 Furosemide (Lasix) 40 mg DAILY PO Last administered on 01/20/17 08:16; Start 01/17/17 at 09:00 Gabapentin (Neurontin) 300 mg DAILY PO Last administered on 01/20/17 08:17; Start 01/17/17 at 09:00 Insulin Aspart (Novolog) 20 units DAILYBFRSUP SQ Last administered on 17:10; Start 01/17/17 at 17:00 Levothyroxine Sodium (Synthroid) 25 mcg DAILY07 PO Last administered on 06:07; Start 01/17/17 at 07:00 Lisinopril (Prinivil) 10 mg BID PO Last administered on 01/20/17 22:28; Start 01/16/17 at 21:00 Rivaroxaban (Xarelto) 15 mg DAILY PO Last administered on 01/17/17 10:32; Start 01/17/17 at 09:00; Stop 01/17/17 at 18:16; Status DC EZETIMIBE (Zetia) 10 mg QHS PO Last administered on 01/20/17 22:28; Start 01/16 at 21:30 Gabapentin (Neurontin) 300 mg QHS PO ; Start 01/16/17 at 21:30; Stop 01/16/17 at 21:30; Status DC Insulin Aspart (Novolog) 15 units DAILYWBKFT SQ Last administered on 01/20/17 08:27; Start 01/17/17 at 07:30 Insulin Detemir (Levemir) 50 units BID SQ Last administered on 01/20/17 22:36 ; Start 01/16/17 at 21:30 Metolazone (Zaroxolyn) 5 mg 3X/WEEK PO Last administered on 01/20/17 08:15; Start 01/17/17 at 09:00 Potassium Chloride (Klor-Con) 20 meq DAILYWBKFT PO Last administered on 08:17; Start 01/17/17 at 08:00 Info (Anti-Coagulation Monitoring By Pharmacy) 1 each PRN DAILY PRN MC SEE COMMENTS Last administered on 01/20/17 12:01; Start 01/16/17 at 21:15 Simvastatin (Zocor) 20 mg HS PO Last administered on 01/20/17 22:29; Start 01/16/17 at 21:30 Gabapentin (Neurontin) 600 mg QHS PO Last administered on 01/20/17 22:28; Start 01/16/17 at 21:30 Acetaminophen/ Hydrocodone Bitart (Lortab 5/325) 1 tab PRN Q4HRS PRN PO PAIN Last administered on 01/20/17 22:27; Start 01/17/17 at 08:15 Rivaroxaban (Xarelto) 15 mg DAILYWSUP PO Last administered on 01/20/17 17:06; Start 01/18/17 at 17:00 Nystatin (Nystop) 1 stephen BID TP Last administered on 01/20/17 21:00; Start 09/26 at 09:00 Colchicine (Colcrys) 1.2 mg 1X ONCE PO Last administered on 01/18/17 12:28; Start 01/18/17 at 12:00; Stop 01/18/17 at 12:01; Status DC Colchicine 0.6 mg 0.6 mg DAILY PO Last administered on 01/20/17 08:16; Start 01/19/17 at 09:00; Stop 01/20/17 at 13:33; Status DC Sodium Chloride (Iv Sodium Chloride 0.9% 1000ml Bag) 1,000 ml @ 100 mls/hr 1X ONCE IV Last administered on 01/18/17 12:28; Start 01/18/17 at 12:30; Stop 09/26 at 22:29; Status DC Insulin Aspart (Novolog) 0-7 UNITS TIDWMEALS SQ Last administered on 01/20/17 17:09; Start 01/19/17 at 12:00 Dextrose 12.5 gm PRN Q15MIN PRN IV SEE COMMENTS; Start 01/19/17 at 12:00 Allopurinol (Zyloprim) 300 mg DAILY PO Last administered on 01/20/17 09:34; Start 01/20/17 at 09:00 Colchicine (Colcrys) 0.6 mg Q6H PO Last administered on 01/21/17 03:30; Start 01/20/17 at 14:00 Active Scripts Active Reported Arthritis Pain Reliever (Acetaminophen) 650 Mg Tablet.er 650 Mg PO BID Metolazone 5 Mg Tablet 5 Mg PO 3X/WEEK Novolog (Insulin Aspart) 100 Unit/1 Ml Vial 20 Unit SQ AFTRNOON Novolog (Insulin Aspart) 100 Unit/1 Ml Cartridge 15 Unit SQ DAILY08 Lantus (Insulin Glargine,Hum.rec.anlog) 100 Unit/1 Ml Vial 50 Unit SQ BIDAC Potassium Chloride 20 Meq Tablet.er 20 Meq PO DAILY Gabapentin 600 Mg Tablet 600 Mg PO HS Gabapentin 300 Mg Capsule 300 Mg PO DAILY Lisinopril 10 Mg Tablet 1 Tab PO BID Xarelto (Rivaroxaban) 15 Mg Tablet 15 Mg PO DAILY Furosemide 40 Mg Tablet 1 Tab PO DAILY Vytorin 10-20 Mg Tablet (Ezetimibe/Simvastatin) 1 Each Tablet 1 Tab PO DAILY Citalopram Hbr (Citalopram Hydrobromide) 10 Mg Tablet 1 Tab PO HS Levothyroxine Sodium 25 Mcg Tablet 1 Tab PO DAILY Vitals/I & O Vital Sign - Last 24 Hours 01/20/17 01/20/17 01/20/17 01/20/17 09:34 11:00 15:00 19:00 Temp 98.1 98.3 98.1 98.1 98.3 98.1 Pulse 74 72 67 Resp 20 16 16 B/P 122/35 115/42 124/44 Pulse Ox 91 89 90 O2 Delivery Room Air Room Air Room Air Room Air 01/20/17 01/20/17 01/21/17 01/21/17 22:28 23:22 00:00 03:38 Temp 99.0 97.7 99.0 97.7 Pulse 67 71 62 Resp 18 18 B/P 124/44 129/43 115/41 Pulse Ox 90 90 O2 Delivery Room Air Room Air Room Air 01/21/17 07:10 Temp 97.9 97.9 Pulse 64 Resp 16 B/P 126/51 Pulse Ox 90 O2 Delivery Room Air Intake and Output 01/20/17 01/20/17 01/21/17 15:00 23:00 07:00 Intake Total 120 ml Balance 120 ml Chad SHAIKH MD Jan 21, 2017 08:24
[2017-01-21] MEDS: NYSTATIN TOPICAL POWDER 15GM BOTTLE. TP SCH ×2 (09:09→21:02)
[2017-01-21] MEDS: ALLOPURINOL 300 MG TABLET. PO SCH (09:10)
[2017-01-21] MEDS: GABAPENTIN 300 MG CAPSULE. PO SCH ×2 (09:10→21:02)
[2017-01-21] MEDS: ACETAMINOPHEN 650 MG TABLET.ER PO SCH ×2 (09:10→21:01)
[2017-01-21] MEDS: FUROSEMIDE 40 MG TABLET PO SCH (09:10)
[2017-01-21] MEDS: LISINOPRIL 10 MG TABLET PO SCH ×2 (09:10→21:01)
[2017-01-21] MEDS: POTASSIUM CHLORIDE 20 MEQ TABLET.ER. PO SCH (09:10)
[2017-01-21] MEDS: INSULIN DETEMIR 300 UNITS/3 ML INSULN.PEN. SQ SCH ×2 (09:27→21:09)
[2017-01-21 11:19] VITALS: BP 124/46
[2017-01-21] MEDS: ANTI-COAG MONITOR BY PHARMACY. MC PRN (12:37)
[2017-01-21 15:12] VITALS: BP 123/41
[2017-01-21] MEDS: RIVAROXABAN 15 MG TABLET. PO SCH (18:18)
--- NOTE | 2017-01-21 18:40 | PDOC3 ---
Discharge Summary Visit Information Date of Admission: Jan 16, 2017 Date of Discharge: Jan 21, 2017 Final Diagnosis Problems Medical Problems: (1) Chronic kidney disease, stage IV (severe) Status: Acute (2) Congestive heart failure Status: Acute (3) Diabetic neuropathy Status: Acute (4) Right foot pain Status: Acute (5) Right foot pain Status: Acute (6) Urinary tract infection Status: Acute (7) UTI (urinary tract infection) Status: Acute Brief Hospital Course Allergies Allergies Coded Allergies Type Severity Reaction Last Updated Verified castor oil Allergy Intermediate rash 01/17/17 Yes Vital Signs Vital Signs Date Time Temp Pulse Resp B/P Pulse Ox O2 Delivery O2 Flow Rate FiO2 01/21/17 15:12 98.1 69 18 123/41 93 Room Air 98.1 Lab Results Laboratory Tests Test 01/19/17 20:44 01/20/17 07:02 01/20/17 11:23 01/20/17 16:53 Glucose (Fingerstick) 86mg/dL (70-99) 89mg/dL (70-99) 116mg/dL (70-99) 158mg/dL (70-99) Test 01/20/17 21:08 01/21/17 07:17 01/21/17 10:59 01/21/17 16:21 Glucose (Fingerstick) 140mg/dL (70-99) 125mg/dL (70-99) 153mg/dL (70-99) 129mg/dL (70-99) Laboratory Tests Test 01/20/17 21:08 01/21/17 07:17 01/21/17 10:59 01/21/17 16:21 Glucose (Fingerstick) 140mg/dL (70-99) 125mg/dL (70-99) 153mg/dL (70-99) 129mg/dL (70-99) Brief Hospital Course Ms. Duran is a 66 old who presented with above issues in addition to inability to ambulate due to acute gout of her ankles. She was stabilized from a cardiac and renal standpoint and kept off her feet, her uric acid came back elevated over 11 and she was started on colchicine and allopurinol and her acute pain has improved and she is ambulatory without chest pain or shortness of breath Discharge Information Condition at Discharge: Improved, Stable Follow Up: Weeks (1-2) Disposition/Orders: D/C to Home Scheduled Acetaminophen (Arthritis Pain Reliever) 650 MG PO BID (Reported) Citalopram Hydrobromide (Citalopram Hbr) 1 TAB PO HS (Reported) Ezetimibe/Simvastatin (Vytorin 10-20 Mg Tablet) 1 TAB PO DAILY (Reported) Furosemide (Furosemide) 1 TAB PO DAILY (Reported) Gabapentin (Gabapentin) 300 MG PO DAILY (Reported) Gabapentin (Gabapentin) 600 MG PO HS (Reported) Insulin Aspart (Novolog) 15 UNIT SQ DAILY08 (Reported) Insulin Aspart (Novolog) 20 UNIT SQ AFTRNOON (Reported) Insulin Glargine,Hum.rec.anlog (Lantus) 50 UNIT SQ BIDAC (Reported) Levothyroxine Sodium (Levothyroxine Sodium) 1 TAB PO DAILY (Reported) Lisinopril (Lisinopril) 1 TAB PO BID (Reported) Metolazone (Metolazone) 5 MG PO 3X/WEEK (Reported) Potassium Chloride (Potassium Chloride) 20 MEQ PO DAILY (Reported) Rivaroxaban (Xarelto) 15 MG PO DAILY (Reported) Patient Instructions Patient Instructions allopurinol 300 mg daily, she completed 24 hr course of colchicine, she should avoid NSAIDS due to her CKD Chad SHAIKH MD Jan 21, 2017 18:40
[2017-01-21 19:00] VITALS: BP 139/58
[2017-01-21] MEDS: CITALOPRAM 10 MG TABLET. PO SCH (21:01)
[2017-01-21] MEDS: SIMVASTATIN 20 MG TABLET PO SCH (21:02)
[2017-01-21] MEDS: EZETIMIBE 10 MG TABLET PO SCH (21:02)
[2017-01-21 23:00] VITALS: BP 139/57
[2017-01-22 03:35] VITALS: BP 128/51
[2017-01-22] MEDS: LEVOTHYROXINE 25 MCG TABLET. PO SCH (06:19)
[2017-01-22 07:00] VITALS: BP 146/59
[2017-01-22] MEDS: INSULIN ASPART 300 UNITS/3 ML INSULN.PEN SQ SCH ×2 (08:00→09:28)
--- NOTE | 2017-01-22 08:33 | HP ---
ADMIT DATE: 01/17/2017 ATTENDING PHYSICIAN: Dr. Franco Alvarado. CHIEF COMPLAINT: Abdominal and right foot pain. HISTORY OF PRESENT ILLNESS: The patient is a 66-year-old female with multiple medical problems, who had the complaint of abdominal pain that started in the morning upon awakening and was located in her upper abdomen which was her initial concern, although she noted that she tried to get up and walk that she had significant pain in her right foot which did not allow her to bear any weight on that foot, that prompted her evaluation in the Emergency Room as well. She denies any trauma. She has not had any nausea or vomiting. There has been no blood in her stools, no diarrhea. She has been voiding without any difficulty and denies any dysuria or hematuria. She denies any fevers. She has been taking her medications appropriately. She does have a history of diabetic neuropathy, but this pain appears to be different than her usual neuropathy pain and is located just in the right foot, primarily when she tries to bear weight on the foot. She is not having much pain when not weightbearing. Her abdominal pain is resolved. PAST MEDICAL HISTORY: Significant for COPD, hypertension, hyperlipidemia, chronic kidney disease stage 4 with a baseline creatinine of approximately 2, diabetes mellitus type 2, lymphedema of the right lower extremity, osteoarthritis of the knees, irritable bowel syndrome, hypothyroidism, chronic diastolic congestive heart failure, DVT in the past for which she stays on anticoagulation regularly. PAST SURGICAL HISTORY: Cholecystectomy, D and C, right kidney removal secondary to trauma. SOCIAL HISTORY: She did smoke in the past, but has not smoked for a number of years. She lives with her sister. She denies any significant alcohol use. FAMILY HISTORY: Noncontributory. MEDICATIONS: At the time of admission include Tylenol 650 mg p.o. b.i.d., Celexa 10 mg p.o. daily, Vytorin 10/20 one p.o. daily, Lasix 40 mg p.o. daily, gabapentin 300 mg p.o. in the day and 600 mg p.o. at night, NovoLog 15 units subcutaneously at breakfast with 20 units at dinner, Lantus 50 units subcutaneously b.i.d., levothyroxine 25 mcg p.o. daily, lisinopril 10 mg p.o. b.i.d., Zaroxolyn 5 mg p.o. 3 times a week, potassium chloride 20 mEq p.o. daily, Xarelto 15 mg p.o. daily. ALLERGIES TO MEDICATIONS: CASTOR OIL. REVIEW OF SYSTEMS: The patient denies any fevers. She has not had any swallowing difficulty, no emesis. She denies any increasing shortness of breath or significant cough. She denies any chest pain or palpitations. Her abdominal pain was primarily upper and has mostly resolved at this time that I am seeing her. She does have urinary frequency, but that is not unusual for her. She denies any dysuria. She has lower extremity swelling which is essentially unchanged. She has not noted any significant redness to the foot. Mood is doing good. PHYSICAL EXAMINATION: VITAL SIGNS: At time of admission, temperature 98.3, pulse 90, respiratory rate 20, blood pressure 171/66, O2 sat 97% on room air. GENERAL: The patient is alert and oriented, sitting at the bedside, in no acute distress. HEENT: The pupils are equal and round. The extraocular motions are intact. The sclerae are anicteric. The oropharynx is moist. NECK: Without JVD or bruit, although it is obese. CHEST: Clear to auscultation bilaterally, without wheezes or rales, but there is decreased air movement throughout. CARDIOVASCULAR: The heart has a regular rate and rhythm without murmur. ABDOMEN: Obese, soft, nondistended. No significant tenderness. No guarding or rebound. BACK: No tenderness to palpation in the CVA area. EXTREMITIES: There is 1+ edema in the bilateral lower extremities. There is tenderness to palpation in the area of the right foot. There is no significant tenderness in the left foot. There is also some tenderness to palpation of the ankles. The skin of the lower legs does have some areas of excoriations and small ulcerations. LABORATORY DATA: At the time of admission, WBC 8.8, hemoglobin 12.2, hematocrit 37.8, platelets 145. Urine shows specific gravity 1.015, large leukocyte esterase, 11-20 wbc's, moderate epithelial cells, moderate bacteria, moderate mucus. Sodium 144, potassium 4.5, chloride 105, CO2 of 30, BUN 69, creatinine 2.1, glucose 115. LFTs are within normal limits. Troponin was less than 0.017. Albumin was 3.1. Acute abdominal series showed no evidence of obstruction, no infiltrates. Foot x-ray showed moderate degenerative changes without any acute bony abnormality. IMPRESSION: 1. Significant right foot pain with inability to ambulate secondary to the pain. Uncertain whether this is neuropathy or not. 2. Abnormal urinalysis consistent with a probable urinary tract infection. 3. Diabetes mellitus type 2 with neuropathy. PLAN: The patient is admitted. We will attempt to control her pain medications with IV medicines and oral medications. We will check labs including uric acid. We will also have PT evaluate and treat to see how she does with that. We will continue her home medications. Further treatment will be based on how she responds to the above. Hopefully, we will be able to get the pain under control so that she can ambulate to and from the bathroom. We will monitor her renal function since she does only have one kidney. LOBO LIAO MD DR: KEARA/sarkis JOB#: [id number] / [id number]
[2017-01-22] MEDS: FUROSEMIDE 40 MG TABLET PO SCH (09:11)
[2017-01-22] MEDS: METOLAZONE 2.5 MG TABLET PO SCH (09:11)
[2017-01-22] MEDS: ALLOPURINOL 300 MG TABLET. PO SCH (09:11)
[2017-01-22 09:12] VITALS: BP 146/59
[2017-01-22] MEDS: GABAPENTIN 300 MG CAPSULE. PO SCH (09:12)
[2017-01-22] MEDS: NYSTATIN TOPICAL POWDER 15GM BOTTLE. TP SCH (09:12)
[2017-01-22] MEDS: ACETAMINOPHEN 650 MG TABLET.ER PO SCH (09:12)
[2017-01-22] MEDS: LISINOPRIL 10 MG TABLET PO SCH (09:12)
[2017-01-22] MEDS: POTASSIUM CHLORIDE 20 MEQ TABLET.ER. PO SCH (09:12)
[2017-01-22] MEDS: INSULIN DETEMIR 300 UNITS/3 ML INSULN.PEN. SQ SCH (09:28)
[2017-01-22] MEDS: ANTI-COAG MONITOR BY PHARMACY. MC PRN (10:31)
== END 2017-01-22 10:45 | DRG 690 ==
LOC: ER 14:22 → 4 NORTH 17:04
PROVIDERS: ADMIT Family Medicine; ATTEND Family Medicine
DX: N39.0 Urinary tract infection, site not specified (principal); E87.0 Hyperosmolality and hypernatremia; I50.32 Chronic diastolic (congestive) heart failure; N18.4 Chronic kidney disease, stage 4 (severe); I13.0 Hypertensive heart and chronic kidney disease with heart failure and stage 1 through stage 4 chronic kidney disease, or unspecified chronic kidney disease; Z68.42 Body mass index [BMI] 45.0-49.9, adult; D64.9 Anemia, unspecified; E03.9 Hypothyroidism, unspecified; E11.22 Type 2 diabetes mellitus with diabetic chronic kidney disease; E66.9 Obesity, unspecified; E11.40 Type 2 diabetes mellitus with diabetic neuropathy, unspecified; E78.5 Hyperlipidemia, unspecified; E86.0 Dehydration; F32.9 Major depressive disorder, single episode, unspecified; J44.9 Chronic obstructive pulmonary disease, unspecified; K58.9 Irritable bowel syndrome, unspecified; M10.9 Gout, unspecified; M17.0 Bilateral primary osteoarthritis of knee; Z79.4 Long term (current) use of insulin; Z86.718 Personal history of other venous thrombosis and embolism; Z87.891 Personal history of nicotine dependence; Z90.49 Acquired absence of other specified parts of digestive tract; Z79.899 Other long term (current) drug therapy; Z91.018 Allergy to other foods
CPT/HCPCS: 36415; 73630; 74022; 80048; 80053; 81001; 82553; 82947; 83036; 83690; 84443; 84484; 84550; 85027; 87086; 93005; 93922; 96374; J0696; J1815; J2405; J3010; J7030; 97110; 97116; 97535; 99285-25

== ENCOUNTER 2017-03-07 19:31 | Emergency (ER) | payer MEDICARE, MEDICAID ==
[~2017-03-07] VITALS: Ht 160 cm; Wt 124.7 kg
[~2017-03-07 19:31] MED LIST: ACET650T10 PO; CITA10TA4 PO; EZET1TAB4 PO; FURO40TA4 PO; GABA-586 PO; GABA600T2 PO; INSU100C4 SQ; INSU100V31 SQ; INSU100V8 SQ; LEVO25TA4 PO; LISI10TA2 PO; METO5TAB4 PO; POTA20TA82 PO; RIVA15TA PO
[2017-03-07 19:44] VITALS: BP 119/63
[2017-03-07] MEDS ORDERED: LIDO:MAALOX:BENADRYL 1:1:1 180 ML BOTTLE. PO STA (21:17)
[2017-03-07] MEDS ORDERED: MUPIROCIN 2 % NASAL OINTMENT 22GM TUBE. NS STA (21:17)
--- NOTE | 2017-03-07 21:21 | PHYS DOC ---
Past Medical History Past Medical History: CHF, Depression, Diabetes-Type II, Hypertension, Hypothyroid, Other Additional Past Medical Histor: NEUROPATHY, GOUT Past Surgical History: Cholecystectomy, Other Additional Past Surgical Histo: R KIDNEY REMOVED Alcohol Use: None Drug Use: None Adult General Chief Complaint Chief Complaint: SORE THROAT HPI HPI Patient is a 66 year old female who presents with complaint of sore throat. Patient states that she has been having problems a sore throat upon discharge from the hospital earlier this month. Patient states that she was treated with antibiotics for urinary tract infection at the end of January when she is admitted to the hospital. Patient states that she was also started on allopurinol for her gout upon discharge. Patient states that since starting the medication she has developed sores in her nose, throat, and lip. Patient states she did not take the medication today. Patient states that the ulcers are very painful. Patient has not taken any medications to help with her symptoms at this time. Patient denies any other symptoms currently. Patient contacted her primary physician, Dr. Shaikh, and she was told to come to the emergency department for evaluation. Review of Systems Review of Systems Constitutional: Denies fever or chills [] Eyes: Denies change in visual acuity, redness, or eye pain [] HENT: Sore throat, mouth and nasal ulcers [] Respiratory: Denies cough or shortness of breath [] Cardiovascular: Denies chest pain or edema [] GI: Denies abdominal pain, nausea, vomiting, bloody stools or diarrhea [] : Denies dysuria or hematuria [] Musculoskeletal: Denies back pain or joint pain [] Integument: Denies rash or skin lesions [] Neurologic: Denies headache, focal weakness or sensory changes [] Current Medications Current Medications Current Medications Medications (Trade) Dose Ordered Sig/Kenroy Start Time Stop Time Status Last Admin Dose Admin Multi-Ingredient Mouthwash/Gargle (Magic Mouthwash) 10 ml 1X ONCE 03/07/17 22:00 03/07/17 22:01 DC 03/07/17 21:53 10 ML Mupirocin (Bactroban) 1 stephen 1X STAT 03/07/17 21:17 03/07/17 21:20 DC 03/07/17 21:17 1 STEPHEN Allergies Allergies Allergies Coded Allergies Type Severity Reaction Last Updated Verified castor oil Allergy Intermediate rash 01/17/17 Yes Physical Exam Physical Exam Constitutional: Alert, afebrile, appears in no acute distress. [] HENT: Normocephalic, atraumatic, bilateral external ears normal, oropharynx mildly erythematous, no oral exudates, 0.5 cm ulcerations of left nasal septum and left lower lip. [] Eyes: PERRLA, EOMI, conjunctiva normal, no discharge. [] Neck: Normal range of motion, no tenderness, supple, no stridor. [] Cardiovascular:Heart rate regular rhythm, no murmur [] Lungs & Thorax: Bilateral breath sounds clear to auscultation [] Abdomen: Bowel sounds normal, soft, no tenderness, no masses, no pulsatile masses. [] Skin: Warm, dry, no erythema, no rash. [] Back: No tenderness, no CVA tenderness. [] Extremities: No tenderness, no cyanosis, no clubbing, ROM intact, no edema. [] Neurologic: Alert and oriented X 3, normal motor function, normal sensory function, no focal deficits noted. [] Current Patient Data Vital Signs Vital Signs Date Time Temp Pulse Resp B/P Pulse Ox O2 Delivery O2 Flow Rate FiO2 03/07/17 19:44 97.5 100 18 119/63 99 97.5 EKG EKG Not performed [] Radiology/Procedures Radiology/Procedures Not performed [] Course & Med Decision Making Course & Med Decision Making Pertinent Labs and Imaging studies reviewed. (See chart for details) Patient was treated with Bactroban ointment for her nasal and lip ulcers and was given Magic mouthwash for her throat. On reevaluation the patient states her symptoms have improved at this time. The patient will continue on treatment with these medications. I spoke with Dr. Shaikh who agreed with management. We agreed that the patient's symptoms would be very unusual to be related to her use of allopurinol, thus I advised patient to continue use of allopurinol at this time. Advised follow-up in [address] Shaikh in his office and return to emergency department for any worsening symptoms. Patient voiced understanding and in agreement with treatment plan. Dragon Disclaimer Dragon Disclaimer This electronic medical record was generated, in whole or in part, using a voice recognition dictation system. Departure Departure Impression: Primary Impression: Skin ulcer Additional Impression: Sore throat Disposition: 01 HOME, SELF-CARE Condition: IMPROVED Referrals: AMAN SHAIKH MD (PCP) Patient Instructions: Skin Ulcer, Sore Throat Additional Instructions: Follow-up with Dr. Shaikh in 3 days. You may use 1 teaspoon of Benadryl elixir and 1 teaspoon of Maalox mixed together for use as "magic mouthwash" 4 times a day as needed for sore throat symptoms. Return to the emergency department for any worsening symptoms. Scripts Mupirocin Calcium (Bactroban Nasal)1 Gm Oint...g.1 Gm NS BID #10 GM Prov:FIFI CARTWRIGHT MD 03/07/17 Problem Qualifiers Primary Impression: Skin ulcer Non-pressure ulcer stage: limited to breakdown of skin Qualified Code: L98.491 - Non-pressure chronic ulcer of skin of other sites limited to breakdown of skin FIFI CARTWRIGHT MD Mar 07, 2017 21:21
[2017-03-07] MEDS ORDERED: LIDO:MAALOX:BENADRYL 1:1:1 180 ML BOTTLE. PO ONE (22:00)
[2017-03-07] MEDS ORDERED: MUPI1OIN NS (22:49)
[2017-03-08 11:55] LABS: NEGATIVE OBC STREP NEG; POSITIVE OBC STREP POS
== END 2017-03-07 23:14 | disposition home or self-care (01) ==
LOC: ER 19:31
DX: L98.491 Non-pressure chronic ulcer of skin of other sites limited to breakdown of skin (principal); J02.9 Acute pharyngitis, unspecified; I11.0 Hypertensive heart disease with heart failure; I50.9 Heart failure, unspecified; F32.9 Major depressive disorder, single episode, unspecified; E11.40 Type 2 diabetes mellitus with diabetic neuropathy, unspecified; E03.9 Hypothyroidism, unspecified; M10.9 Gout, unspecified; Z91.048 Other nonmedicinal substance allergy status; Z79.899 Other long term (current) drug therapy; Z90.5 Acquired absence of kidney
CPT/HCPCS: 87070; 87880; 99284

== ENCOUNTER 2017-03-15 06:57 | Inpatient (IN) | payer MEDICARE, MEDICAID ==
[~2017-03-15] VITALS: Ht 160 cm; Wt 115.2 kg
[~2017-03-15 06:57] MED LIST changes: +MUPI1OIN NS
--- NOTE | 2017-03-15 07:04 | PHYS DOC ---
Past Medical History Past Medical History: CHF, Depression, Diabetes-Type II, Hypertension, Hypothyroid, Other Additional Past Medical Histor: NEUROPATHY, GOUT Past Surgical History: Cholecystectomy, Other Additional Past Surgical Histo: R KIDNEY REMOVED Alcohol Use: None Drug Use: None Adult General Chief Complaint Chief Complaint: ABDOMINAL PAIN HPI HPI Patient is a 66 year old female who presents with left upper quadrant abdominal pain. She states it started around midnight comes in five- minute attacks of sharp pain it radiates in the back of her ribs to the front of her ribs and then goes away by itself. She states she's had about 10 of these episodes throughout the night. She felt nauseated but has not vomited. She denies any fevers chills chest pain shortness of breath. She did have a normal bowel movement this morning and one episode of flatus that made her feel better. She does have a history of chronic kidney disease and said 1 kidney removed, she has history of congestive heart failure, diabetes, peripheral neuropathy, and is on Xeralto for DVT. She states she's had one episode of this before a couple years ago but it wasn't bad enough her to come in the ER. Review of Systems Review of Systems Constitutional: Denies fever or chills [] Eyes: Denies change in visual acuity, redness, or eye pain [] HENT: Denies nasal congestion or sore throat [] Respiratory: Denies cough or shortness of breath [] Cardiovascular: No additional information not addressed in HPI [] GI: Positive for left upper quadrant abdominal pain with nausea, denies any vomiting, diarrhea, blood in stools. : Denies dysuria or hematuria [] Musculoskeletal: Denies back pain or joint pain [] Integument: Denies rash or skin lesions [] Neurologic: Denies headache, focal weakness or sensory changes [] Endocrine: Denies polyuria or polydipsia [] Current Medications Current Medications Current Medications Medications (Trade) Dose Ordered Sig/Kenroy Start Time Stop Time Status Last Admin Dose Admin Iohexol (Omnipaque 240 Mg/ml) 50 ml 1X ONCE 03/15/17 09:15 03/15/17 09:26 DC 03/15/17 10:13 50 ML Morphine Sulfate 2 mg PRN Q15MIN PRN 03/15/17 07:30 03/16/17 07:29 03/15/17 09:31 2 MG Sodium Chloride 1,000 ml @ 1,000 mls/hr Q1H 03/15/17 07:17 03/15/17 08:16 DC 03/15/17 08:25 1,000 MLS/HR Allergies Allergies Allergies Coded Allergies Type Severity Reaction Last Updated Verified castor oil Allergy Intermediate rash 01/17/17 Yes Physical Exam Physical Exam Constitutional: Well developed, well nourished, no acute distress, non-toxic appearance. [] HENT: Normocephalic, atraumatic, bilateral external ears normal, oropharynx moist, no oral exudates, nose normal. [] Eyes: PERRLA, EOMI, conjunctiva normal, no discharge. [] Neck: Normal range of motion, no tenderness, supple, no stridor. [] Cardiovascular:Heart rate regular rhythm, no murmur [] Lungs & Thorax: Bilateral breath sounds clear to auscultation [] Abdomen: Bowel sounds normal, soft, and palpation over the left upper quadrant without any rebound or guarding, no masses, no pulsatile masses. [] Skin: Warm, dry, no erythema, no rash. [] Back: No tenderness, no CVA tenderness. [] Extremities: No tenderness, no cyanosis, no clubbing, ROM intact, no edema. [] Neurologic: Alert and oriented X 3, normal motor function, normal sensory function, no focal deficits noted. [] Psychologic: Affect normal, judgement normal, mood normal. [] Current Patient Data Vital Signs Vital Signs Date Time Temp Pulse Resp B/P (MAP) Pulse Ox O2 Delivery O2 Flow Rate FiO2 03/15/17 09:31 16 03/15/17 07:00 98.7 87 137/58 (84) 94 Room Air 98.7 Lab Values Laboratory Tests Test 03/15/17 08:13 White Blood Count 9.5 x10^3/uL (4.0-11.0) Red Blood Count 3.94 x10^6/uL (3.50-5.40) Hemoglobin 12.1 g/dL (12.0-15.5) Hematocrit 36.2 % (36.0-47.0) Mean Corpuscular Volume 92 fL (79-100) Mean Corpuscular Hemoglobin 31 pg (25-35) Mean Corpuscular Hemoglobin Concent 33 g/dL (31-37) Red Cell Distribution Width 15.0 % (11.5-14.5) H Platelet Count 142 x10^3/uL (140-400) Neutrophils (%) (Auto) 53 % (31-73) Lymphocytes (%) (Auto) 32 % (24-48) Monocytes (%) (Auto) 9 % (0-9) Eosinophils (%) (Auto) 4 % (0-3) H Basophils (%) (Auto) 1 % (0-3) Neutrophils # (Auto) 5.1 x10^3uL (1.8-7.7) Lymphocytes # (Auto) 3.1 x10^3/uL (1.0-4.8) Monocytes # (Auto) 0.9 x10^3/uL (0.0-1.1) Eosinophils # (Auto) 0.4 x10^3/uL (0.0-0.7) Basophils # (Auto) 0.1 x10^3/uL (0.0-0.2) Prothrombin Time 22.3 SEC (11.7-14.0) H Prothrombin Time INR 2.1 (0.8-1.1) H Sodium Level 142 mmol/L (136-145) Potassium Level 4.1 mmol/L (3.5-5.1) Chloride Level 103 mmol/L (98-107) Carbon Dioxide Level 33 mmol/L (21-32) H Anion Gap 6 (6-14) Blood Urea Nitrogen 47 mg/dL (7-20) H Creatinine 2.2 mg/dL (0.6-1.0) H Estimated GFR (Cockcroft-Gault) 22.3 Glucose Level 55 mg/dL (70-99) L Calcium Level 9.5 mg/dL (8.5-10.1) Magnesium Level 1.7 mg/dL (1.8-2.4) L Total Bilirubin 0.2 mg/dL (0.2-1.0) Direct Bilirubin 0.1 mg/dL (0.0-0.2) Aspartate Amino Transferase (AST) 21 U/L (15-37) Alanine Aminotransferase (ALT) 20 U/L (14-59) Alkaline Phosphatase 72 U/L (46-116) Creatine Kinase 159 U/L (26-192) Creatine Kinase MB (Mass) 1.6 ng/mL (0.0-3.6) Creatine Kinase MB Relative Index 1.0 % (0-4) Troponin I Quantitative 0.022 ng/mL (0.000-0.055) KM-Agp-V-Type Natriuretic Peptide 127 pg/mL (0-124) H Total Protein 7.0 g/dL (6.4-8.2) Albumin 3.2 g/dL (3.4-5.0) L Lipase 247 U/L (73-393) Laboratory Tests 03/15/17 08:13 Laboratory Tests 03/15/17 08:13 EKG EKG EKG shows sinus rhythm with rate [address] elevations or T-wave inversions, there is flattening of aVL, normal axis, QTC 422 ms, as interpreted by me. Radiology/Procedures Radiology/Procedures [place] [id number] IMAGING REPORT Signed PATIENT: SILVERIO PETERSEN ACCOUNT: [id number] : 1950 LOCATION: ER AGE: 66 SEX: F EXAM STATUS: REG ER ORD. PHYSICIAN: LALO VERNON MD REASON: abd pain PROCEDURE: ACUTE ABDOMEN SERIES Indication abdominal pain. A single view of the chest was obtained as well as flat and upright films of the abdomen. Comparison is made to a similar exam 2 months ago. The heart and pulmonary vessels appear normal. The lungs are clear. There is no free air. The abdominal gas pattern is normal. Postoperative changes are noted. No organomegaly or abnormal calculi are seen. Modest amount of stool is noted in the right colon. IMPRESSION: No acute or significant finding seen in the chest or abdomen on plain films DICTATED and SIGNED BY: DANIA SILVERIO MD DATE: 03/15/17811 CC: LALO VERNON MD; AMAN SHAIKH MD ~ [place] [id number] [place] [address] IMAGING REPORT Signed PATIENT: SILVERIO PETERSEN ACCOUNT: [id number] : 1950 LOCATION: ER AGE: 66 SEX: F EXAM STATUS: REG ER ORD. PHYSICIAN: LALO VERNON MD REASON: abd pain PROCEDURE: CT ABD PEL W/ORAL CONTRST ONLY Indication abdominal pain, left-sided. Axial images through the abdomen and pelvis were obtained. No prior CT imaging of the abdomen or pelvis is available. Oral contrast was administered. IV contrast was not. The lung bases are clear. The liver and spleen appear unremarkable. No pancreatic abnormality is seen. The patient is status post right nephrectomy.. The left kidney appears unremarkable. There is a calcification, likely vascular, associated with the left kidney. No definite renal calculi are seen. There is no hydronephrosis hydroureter or calcification seen along the course of either ureter. There is vascular calcification. There are calcifications in the pelvis likely associated with the uterus representing calcified uterine fibroids. Additional calcifications compatible with phleboliths are also noted. . An acute finding in the abdomen is not seen. No acute finding is apparent in the pelvis. There are some degenerative changes involving the hips. Degenerative changes are also seen in the lumbar spine likely with associated multilevel spinal stenosis. IMPRESSION: No acute finding seen in the abdomen or pelvis DICTATED and SIGNED BY: DANIA SILVERIO MD DATE: 03/15/17 1039 CC: LALO VERNON MD; AMAN SHAIKH MD ~ Impressions: Abdominal pain Chronic kidney disease Congestive heart failure Diabetes Course & Med Decision Making Course & Med Decision Making Pertinent Labs and Imaging studies reviewed. (See chart for details) CT scan does not show any acute abnormalities of her abdomen pelvis however her pain is left upper quadrant it could be low chest pain also. Her EKG has T-wave inversion/flattening in aVL which is new since her last EKG in January. Her troponin and other labs are nonacute at this time. Her pain has finally been controlled with IV morphine. Spoke with Dr. Reynolds is agreeable to admitting the patient. Have written interim orders and spoke with cardiology about the patient. Patient's in stable and agreeable condition at this time. Dragon Disclaimer Dragon Disclaimer This electronic medical record was generated, in whole or in part, using a voice recognition dictation system. Departure Departure Impression: Primary Impression: Chest pain Disposition: ADMITTED INPATIENT Admitting Physician: Gabo Reynolds Condition: STABLE Referrals: AMAN SHAIKH MD (PCP) Problem Qualifiers Primary Impression: Chest pain Chest pain type: unspecified Qualified Codes: R07.9 - Chest pain, unspecified LALO VERNON MD March 15, 2017 07:04
[2017-03-15] MEDS ORDERED: IV NORMAL SALINE 1000ML BAG 1,000 ML IV SCH (07:17)
--- NOTE | 2017-03-15 08:17 | RAD ---
Indication abdominal pain. A single view of the chest was obtained as well as flat and upright films of the abdomen. Comparison is made to a similar exam 2 months ago. The heart and pulmonary vessels appear normal. The lungs are clear. There is no free air. The abdominal gas pattern is normal. Postoperative changes are noted. No organomegaly or abnormal calculi are seen. Modest amount of stool is noted in the right colon. IMPRESSION: No acute or significant finding seen in the chest or abdomen on plain films
[2017-03-15] MEDS: MORPHINE SULFATE 2 MG/ML DISP.SYRIN. IV/SQ PRN ×2 (08:25→09:31)
[2017-03-15 08:32] LABS: BASO # 0.1 x10^3/uL (0.0-0.2); BASO % 1 % (0-3); EOS % 4 % (0-3); HEMATOCRIT 36.2 % (36.0-47.0); HEMOGLOBIN 12.1 g/dL (12.0-15.5); LYMPH # 3.1 x10^3/uL (1.0-4.8); LYMPH % 32 % (24-48); MEAN CORPUSCULAR HEMOGLOBIN 31 pg (25-35); MEAN CORPUSCULAR HGB CONC 33 g/dL (31-37); MEAN CORPUSCULAR VOLUME 92 fL (79-100); MONO % 9 % (0-9); NEUT % 53 % (31-73); PLATELET COUNT 142 x10^3/uL (140-400); RED BLOOD COUNT 3.94 x10^6/uL (3.50-5.40); WHITE BLOOD COUNT 9.5 x10^3/uL (4.0-11.0)
[2017-03-15 08:41] LABS: CALCIUM 9.5 mg/dL (8.5-10.1); CREATININE 2.2 mg/dL (0.6-1.0); GFR 22.3; POTASSIUM 4.1 mmol/L (3.5-5.1)
[2017-03-15 08:42] LABS: INR 2.1 (0.8-1.1); PROTHROMBIN TIME PATIENT 22.3 SEC (11.7-14.0)
[2017-03-15 08:47] LABS: ALBUMIN 3.2 g/dL (3.4-5.0); DIRECT BILIRUBIN 0.1 mg/dL (0.0-0.2); MAGNESIUM 1.7 mg/dL (1.8-2.4); TOTAL BILIRUBIN 0.2 mg/dL (0.2-1.0)
[2017-03-15 08:56] LABS: CKMB MASS 1.6 ng/mL (0.0-3.6)
[2017-03-15] MEDS ORDERED: IOHEXOL 240 MG/ML 50ML VIAL. PO ONE (09:15)
--- NOTE | 2017-03-15 09:38 | EKG ---
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
--- NOTE | 2017-03-15 10:55 | RAD ---
Indication abdominal pain, left-sided. Axial images through the abdomen and pelvis were obtained. No prior CT imaging of the abdomen or pelvis is available. Oral contrast was administered. IV contrast was not. The lung bases are clear. The liver and spleen appear unremarkable. No pancreatic abnormality is seen. The patient is status post right nephrectomy.. The left kidney appears unremarkable. There is a calcification, likely vascular, associated with the left kidney. No definite renal calculi are seen. There is no hydronephrosis hydroureter or calcification seen along the course of either ureter. There is vascular calcification. There are calcifications in the pelvis likely associated with the uterus representing calcified uterine fibroids. Additional calcifications compatible with phleboliths are also noted. . An acute finding in the abdomen is not seen. No acute finding is apparent in the pelvis. There are some degenerative changes involving the hips. Degenerative changes are also seen in the lumbar spine likely with associated multilevel spinal stenosis. IMPRESSION: No acute finding seen in the abdomen or pelvis
[2017-03-15] MEDS ORDERED: MORPHINE SULFATE 2 MG/ML DISP.SYRIN. IV PRN (11:45)
[2017-03-15] MEDS ORDERED: ONDANSETRON PF 4 MG/2 ML VIAL. IV PRN (11:45)
[2017-03-15] MEDS ORDERED: ASPIRIN 325 MG TABLET PO ONE (12:00)
--- NOTE | 2017-03-15 12:31 | ACF ---
Admission Forms Criteria CARDIOLOGY GRG Clinical Indications for Admission to Inpatient Care ( Place 'X' for any and all applicable criteria): Hospital admission is needed for appropriate care of the patient because of ANY ONE of the following (1): [ ] I. Hemodynamic instability as indicated by ALL of the following (1)(2)(3) (4)(5) [ ]a) Vital signs or other findings not as expected for chronic patient condition or baseline [ ]b) Instability indicated by ANY ONE of the following: [ ]i) Hypotension [ ]ii) Symptomatic Tachycardia unresponsive to treatment ( e.g., analgesia, fluids, sedation as indicated) [ ]iii) Inadequate perfusion indicated by ANY ONE of the following: [ ] 1) Lactic acidosis (> 2 mmol/L) [ ] 2) New abnormal capillary refill (> 3 seconds) [ ] 3) Reduced urine output [ ] 4) New altered mental status [ ]iv) Orthostatic vital sign changes unresponsive to treatment (e.g., fluids) [ ]v) IV inotropic or vasopressor medication required to maintain adequate blood pressure or perfusion [ ] II. Severe heart failure as indicated by ANY ONE of the following(17)(18) [ ]a) Respiratory distress [ ]b) Hypotension [ ]c) Anasarca (refractory to outpatient therapy) [ ]d) Cardiac arrhythmias of immediate concern [ ]e) Myocardial ischemia [ ] III. Cardiac arrhythmias or findings of immediate concern indicated by ANY ONE of the following (19)(20): [ ] a) Heart rhythms that are inherently dangerous or unstable indicated by ANY ONE of the following (21)(22)(23): [ ] i) Resuscitated ventricular fibrillation or cardiac arrest [ ] ii) Ventricular escape rhythm [ ] iii) Sustained ventricular tachycardia (30 seconds or more of ventricular rhythm at greater than 100 beats per minute) [ ] iv) Nonsustained ventricular tachycardia and ANY ONE of the following: [ ] 1) Suspected cardiac ischemia as cause or consequence of ventricular tachycardia [ ] 2) In setting of acute myocarditis [ ] b) Unstable cardiac conduction defects indicated by ANY ONE of the following(23)(24)(25) [ ] i) Type II second-degree atrioventricular block [ ]ii) Third-degree atrioventricular block [ ]iii) New-onset left bundle branch block with suspected myocardial ischemia [ ]c) Any heart rhythm and ANY ONE of the following (21)(22)(26)(27) (28) [ ] i) Continuous long-term ECG monitoring needed (e.g., initiation of drug requiring monitoring for more than 24 hours) [ ] ii) Patient has automatic implanted cardioverter defibrillator that is repeatedly firing, malfunctioning, or in need of immediate adjustment of settings beyond the scope of ambulatory or observation care [ ]d) Heart rhythms of concern due to ANY ONE of the following: [ ] i) Hypotension [ ] ii) Respiratory distress [ ] iii) Association with other significant symptoms (e.g., bradycardia with syncope or ongoing dizziness, supraventricular tachycardia with chest pain (14)(15)(17) [ ] IV. Monitoring for cardiac contusion beyond the scope of observation care needed [A](30)(31)(32) [ ] V. Surgical or device complication (e.g., valve replacement complication , pacemaker dysfunction) (35)(41)(44)(45)(46) [ ] . Inpatient palliative care needed. [B](49) Also use Inpatient Palliative Care Criteria [ ] VII. Nonbacterial thrombotic (marantic) endocarditis (36)(43)(47)(48) [X] VIII. Cardiology condition, symptom, or finding for which emergency and observation care has failed or are not considered appropriate. [ ] IX. Acute valvular disease requiring inpatient as indicated by ANY ONE of the following (41) [ ]a) Acute valvular regurgitation (42) [ ]b) Noninfectious valvulitis (43) [ ]c) Obstructive valve thrombosis [ ]d) Paravalvular leak [ ]e) Other significant valvular disorder remaining after emergency or observation level of care (as appropriate) [ ]X. Pericardial disease requiring inpatient treatment as indicated by ANY ONE of the following (33)(34)(35)(36)(37) [ ]a) Suspected tamponade (38)(39)(40) [ ]b) Hemopericardium [ ]c) Other significant pericardial disorder remaining after emergency or observation level of care (as appropriate) [ ] XI. Cardiac ischemia beyond scope of emergency and observation care. [ ] XII. Hypertension requiring inpatient treatment as indicated by ANY ONE of the following (6)(7)(8) [ ]a) SBP greater than 220 mm Hg or DBP greater than 120 mmHg despite treatment [ ]b) SBP greater than 140 mm Hg or DBP greater than 100 mm Hg with evidence of acute end organ damage as indicated by ANY ONE of the following [ ] i) Encephalopathy [ ] ii) Acute renal failure as indicated by new onset of ANY ONE of the following (9)(10)(11)(12)(13) [ ]1) 3-fold rise in serum creatinine from baseline [ ]2) Serum creatinine greater than 4 mg/dL ( 354 micromoles/L) with acute rise greater than 0.5 mg/dL (44.2 micromoles/L) [ ]3) Reduction of more than 75% in estimated glomerular filtration rate from baseline [ ]4) Estimated glomerular filtration rate less than 35 mL/min/1.73m2 (0.59 mL/sec/1.73m2) in child up to 18 years of age [ ]5) Cessation of urine output indicated by ALL of the following [ ]A. Adequate volume status [ ]B. Inadequate urine output as indicated by ANY ONE of the following [ ]a. Urine output less than 0.3 mL/kg/hr for 24 hours [ ]b. Anuria (urine output less than 0.1 mL/kg/hr) for 12 hours [ ] iii) Aortic dissection [ ] iv) Myocardial Ischemia [ ] v) Left ventricular heart failure [ ]vi) Retinal Hemorrhage [ ]vii) Other significant finding [ ]c) Hypertension in child requiring inpatient treatment as indicated by ALL of the following(14)(15)(16) [ ] i) Outpatient treatment not effective, not available, or not appropriate [ ]ii) SBP or DBP greater than 95th percentile for age [ ]iii) Evidence of acute end organ damage as indicated by ANY ONE of the following [ ]1) Altered mental status [ ]2) Acute renal failure as indicated by new onset of ANY ONE of the following(9)(10)(11)(12)(13) [ ]A. 3-fold rise in serum creatinine from baseline [ ]B. Serum creatinine greater than 4 mg/dL (354 micromoles/L) with acute rise greater than 0.5 mg/dL (44.2 micromoles/L) [ ]C. Reduction of more than 75% in estimated glomerular filtration rate from baseline [ ]D. Estimated glomerular filtration rate less than 35 mL/min/1.73m2 (0.59 mL/sec/1.73m2) in child up to 18 years of age [ ]E. Cessation of urine output indicated by ALL of the following [ ]a. Adequate volume status [ ]b. Inadequate urine output as indicated by ANY ONE of the following [ ]i) Urine output less than 0.3 mL/kg/hr for 24 hours [ ]ii) Anuria ( urine output less than 0.1 mL/kg/hr) for 12 hours [ ]3) Severe headache [ ]4) Visual disturbance [ ]5) Retinal hemorrhage [ ]6) Other significant finding [ ]XIII. Complications of transplanted heart indicated by ANY ONE of the following(61): [ ]a) Acute graft rejection requiring inpatient management (eg, intravenous immunosuppression)(62)(63) [ ]b) Acute graft heart failure indicated by ANY ONE of the following(64): [ ]i) Hemodynamic instability [ ]ii) Cardiac arrhythmias of immediate concern [ ]iii) Pulmonary edema that is very severe (eg, mechanical ventilation needed, imminent or likely, need for 100% oxygen to keep oxygen saturation above 90%) [ ]iv) Pulmonary edema that is persistent as indicated by ALL of the following: [ ]1) New need for oxygen therapy to keep oxygen saturation above 90% (or increased FiO2 need from baseline) [ ]2) Has not improved sufficiently with emergency department or observation care IV diuretics or other heart failure treatments[E] [ ]v) Altered mental status that is severe or persistent [ ]vi) Increased creatinine (new on laboratory test) with reduction of more than 50% in estimated glomerular filtration rate from baseline [ ]vii) Progressively (ongoing) rising creatinine (known from past laboratory test) with reduction of more than 25% in estimated glomerular filtration rate from baseline [ ]viii) Acute renal failure [ ]ix) Acute peripheral ischemia (eg, examination shows pulseless, cool, mottled, or cyanotic extremity) [ ]x) Pulmonary artery catheter monitoring needed [ ]xi) Other sign or symptom of heart failure requiring inpatient treatment (ie, too severe or not responsive to outpatient and observation care treatment) [ ]c) Infection requiring inpatient management (eg, Hemodynamic instability, need for intravenous antimicrobial treatment)(66)(67)(68)(69)(70) [ ]d) Cardiac allograft vasculopathy requiring inpatient management ( eg evidence of cardiac ischemia)(71) [ ]e) Other complication of transplanted heart (eg, stroke, severe pulmonary hypertension, severe valvular dysfunction) requiring inpatient management(72) The original [facility] [employer] content created by [employer] [facility] has been revised. The portions of the content which have been revised are identified through the use of italic text or in bold, and [facility] has neither reviewed nor approved the modified material. All other unmodified content is copyright [facility]. Please see references footnoted in the original [facility] edition 2016 CHEST PAIN Clinical Indications for Admission to Inpatient Care (Place 'X' for any and all applicable criteria): Admission is indicated for chest pain and ANY ONE of the following(1)(2)(3)(4)(5 ): [ ]I. Angina with acute coronary syndrome (Also use Myocardial Infarction or Angina guideline) [ ]II. Hemodynamic instability [ ]III. Angina needing acute intervention as indicated by ALL of the following( 11)(12): [ ]a) Unstable angina is present as indicated by angina that is ANY ONE of the following: [ ]i) New onset [ ]ii) Nocturnal [ ]iii) Prolonged at rest [ ]iv) Progressive [ ]b) Angina warrants acute intervention as indicated by ANY ONE of the following: [ ]i) Recurrent angina (e.g, not responding as previously to treatment) [ ]ii) Angina at rest or with low-level activities despite initial medical therapy [ ]iii) New or presumably new ST-segment depression on ECG [ ]iv) Signs or symptoms of heart failure (eg, dyspnea, pulmonary edema) [ ]v) New or worsening mitral regurgitation [ ]vi) Hemodynamic instability [ ]vii) Dangerous arrhythmia (eg, sustained ventricular tachycardia) [ ]viii) History of percutaneous coronary intervention within 6 months [ ]ix) History of coronary artery bypass graft surgery [ ]x) MORELIA risk score of 2 or greater[A] [ ]xi) History of Diabetes(14) [ ]xii) High-risk cardiac ischemia findings on noninvasive testing (e.g, echocardiogram, treadmill testing, nuclear scan) [ ]xiii) Chronic renal insufficiency (ie, estimated GFR less than 60 mL/min/1.732m) [ ]xiv) Left ventricular ejection fraction less than 40% [ ]IV. Evidence of OH (eg, cardiac biomarkers positive, ST-segment elevation on ECG) also use Myocardial Infarction Criteria Form. [ ]V. Pulmonary edema [ ]. Respiratory distress [ ]VII. Chest pain indicative of serious diagnosis other than coronary artery disease (eg, aortic dissection) [ ]VIII. Contraindications and/or Inappropriate clinical situations for Observational Care in patients with Chest Pain, when ANY ONE of the following is required: [ ]a) Patient with risk factor for pulmonary embolism, acute coronary syndrome and myocardial infarction (18) [ ]b) Patient with Pulmonary embolism require an average LOS of 4.3 days, therefore emergency department observation management is inappropriate 18,23 [ ]c) Painful condition/s in the elderly, have the highest rate of recidivism after emergency department observation management (10.8%) 20,21,22 [ ]d) Elevated cardiac biomarker requires intensive and exhaustive care (19) [ ]IX. General contraindications and/or Inappropriate clinical situations for Observational Care in patients with Chest Pain, when ANY ONE of the following is required: [ ]a) Prediction of prolongation of LOS based on ANY ONE of the following may be considered as a contraindication for observational care 2, 3, 4, 5, 6, 7, 8, 9, 10, 11 [ ]i) Age > 65 yrs. [ ]ii) Patient arriving by ambulance [ ]iii) Patient with high acuity [ ]iv) Patient requiring vital sign monitoring [ ]v) Patient on IV medication [ ]b) Systolic blood pressures 180mmHg 3,12 [ ]c) Patient with altered mental status including delirium and other alteration of consciousness, (3) [ ]d) Patient whose discharge disposition will be to a care home home or rehabilitation home should not be managed in Emergency Department Observation Unit. CMS rule requires 3 days hospital stay before such placement. 3,13 [ ]e) Patient with failure to thrive due to broad array of etiologies 3,16,17 [ ]f) Inability to ambulate 3,14 Extended stay beyond goal length of stay may be needed for (1)(28): [ ]a) Specific condition diagnosed after evaluation (eg, pulmonary embolism, aortic dissection) [ ]b) Unstable angina [ ]c) Continued suspicion of acute coronary syndrome with inability to complete needed cardiac evaluation (eg, patient clinically unable to undergo stress testing) [ ]d) Myocardial infarction (Contents from ANGINA and CHEST PAIN clinical indications for admission to inpatient care have been integrated in this form) The original [facility] [employer] content created by [facility] [employer] has been revised. The portions of the content which have been revised are identified through the use of italic text or in bold, and [facility] has neither reviewed nor approved the modified material. All other unmodified content is copyright [facility]. Please see references footnoted in the original [facility] edition 2016 Admission Criteria Met?: Yes BRANDEN TAYLOR March 15, 2017 12:31
[2017-03-15 12:45] VITALS: BP 119/46
[2017-03-15] MEDS ORDERED: DEXTROSE 50% 25 GM / 50ML DISP.SYRIN. IV ONE (14:00)
[2017-03-15] MEDS ORDERED: ALLO100T PO (14:06)
[2017-03-15] MEDS ORDERED: OMEG300C PO (14:06)
[2017-03-15] MEDS ORDERED: CYAN10005 PO (14:06)
[2017-03-15] MEDS ORDERED: LOPE2CAP3 PO (14:06)
[2017-03-15] MEDS ORDERED: DEXTROSE 50% 25 GM / 50ML DISP.SYRIN. IV PRN (14:15)
[2017-03-15 15:00] VITALS: BP 95/38
[2017-03-15] MEDS ORDERED: ACETAMINOPHEN 325 MG TABLET. PO PRN (15:15)
[2017-03-15] MEDS: POTASSIUM CHLORIDE 20 MEQ TABLET.ER. PO SCH (18:28)
[2017-03-15] MEDS: RIVAROXABAN 15 MG TABLET. PO SCH (18:29)
[2017-03-15] MEDS: CYANOCOBALAMIN (VITAMIN B-12) 1,000 MCG TABLET. PO SCH (18:29)
[2017-03-15] MEDS: ALLOPURINOL 100 MG TABLET. PO SCH (18:29)
[2017-03-15] MEDS: INSULIN DETEMIR 300 UNITS/3 ML INSULN.PEN. SQ SCH (18:33)
[2017-03-15 19:25] VITALS: BP 100/40
[2017-03-15] MEDS: LISINOPRIL 10 MG TABLET PO SCH (21:00)
[2017-03-15] MEDS: CITALOPRAM 10 MG TABLET. PO SCH (21:04)
[2017-03-15] MEDS: GABAPENTIN 300 MG CAPSULE. PO SCH (21:04)
[2017-03-15 22:28] LABS: BILIRUBIN,URINE NEGATIVE (NEG); GLUCOSE,URINE NEGATIVE (NEG); NITRITE,URINE NEGATIVE (NEG); PH,URINE 5.5; PROTEIN,URINE NEGATIVE (NEG-TRACE); UROBILINOGEN,URINE 0.2 mg/dL (0.2 mg/dL)
[2017-03-15 22:33] LABS: BACTERIA,URINE MANY /HPF (0-FEW); RBC,URINE 0 /HPF (0-2); SQUAMOUS EPITHELIAL CELL,UR MANY /LPF
[2017-03-15 23:38] VITALS: BP 106/48
[2017-03-16 03:28] VITALS: BP 112/48
[2017-03-16 06:13] LABS: BASO # 0.1 x10^3/uL (0.0-0.2); BASO % 1 % (0-3); EOS % 6 % (0-3); HEMATOCRIT 35.2 % (36.0-47.0); HEMOGLOBIN 11.7 g/dL (12.0-15.5); LYMPH # 2.4 x10^3/uL (1.0-4.8); LYMPH % 39 % (24-48); MEAN CORPUSCULAR HEMOGLOBIN 31 pg (25-35); MEAN CORPUSCULAR HGB CONC 33 g/dL (31-37); MEAN CORPUSCULAR VOLUME 94 fL (79-100); MONO % 8 % (0-9); NEUT % 46 % (31-73); PLATELET COUNT 126 x10^3/uL (140-400); RED BLOOD COUNT 3.74 x10^6/uL (3.50-5.40); RED CELL DISTRIBUTION WIDTH 15.7 % (11.5-14.5); WHITE BLOOD COUNT 6.1 x10^3/uL (4.0-11.0)
[2017-03-16 06:27] LABS: CALCIUM 8.3 mg/dL (8.5-10.1); GFR 24.9; POTASSIUM 4.9 mmol/L (3.5-5.1)
[2017-03-16 06:39] LABS: CKMB MASS 1.2 ng/mL (0.0-3.6)
[2017-03-16 07:00] VITALS: BP 108/64
[2017-03-16] MEDS: INSULIN ASPART 300 UNITS/3 ML INSULN.PEN SQ SCH ×7 (08:00→21:00)
[2017-03-16] MEDS: INSULIN DETEMIR 300 UNITS/3 ML INSULN.PEN. SQ SCH ×2 (08:03→17:12)
--- NOTE | 2017-03-16 08:20 | EKG ---
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
[2017-03-16] MEDS ORDERED: HEPARIN PF for SUB-Q USE 5,000 UNIT/0.5 ML VIAL. SQ SCH (09:00)
[2017-03-16] MEDS: POTASSIUM CHLORIDE 20 MEQ TABLET.ER. PO SCH (09:20)
[2017-03-16] MEDS: OMEGA-3 FATTY ACIDS/FISH OIL 1,000 MG CAPSULE. PO SCH (09:20)
[2017-03-16] MEDS: FUROSEMIDE 40 MG TABLET. PO SCH (09:20)
[2017-03-16] MEDS: SIMVASTATIN 20 MG TABLET PO SCH (09:21)
[2017-03-16] MEDS: LEVOTHYROXINE 25 MCG TABLET. PO SCH (09:21)
[2017-03-16] MEDS: LISINOPRIL 10 MG TABLET PO SCH ×2 (09:21→20:18)
[2017-03-16] MEDS: ALLOPURINOL 100 MG TABLET. PO SCH (09:21)
[2017-03-16] MEDS: GABAPENTIN 300 MG CAPSULE. PO SCH ×2 (09:21→20:18)
[2017-03-16] MEDS: CYANOCOBALAMIN (VITAMIN B-12) 1,000 MCG TABLET. PO SCH (09:21)
[2017-03-16] MEDS: EZETIMIBE 10 MG TABLET. PO SCH (09:21)
[2017-03-16 10:44] VITALS: BP 106/43
[2017-03-16] MEDS ORDERED: INSULIN ASPART 300 UNITS/3 ML INSULN.PEN SQ SCH (12:00)
[2017-03-16] MEDS: ANTI-COAG MONITOR BY PHARMACY. MC PRN (12:47)
[2017-03-16] MEDS ORDERED: predniSONE 20 MG TABLET PO ONE (13:00)
[2017-03-16] MEDS ORDERED: METHOCARBAMOL 500 MG TABLET PO PRN (13:00)
--- NOTE | 2017-03-16 13:51 | PDOC2 ---
CONSULT Date of Consult Date of Consult DATE: 03/16/17 TIME: 13:43 Reason for Consult Reason for Consult: abdominal and chest pain Referring Physician Referring Physician: Dr. Reynolds Identification/Chief Complaint Chief Complaint Abdominal and lower chest pain Source Source: Patient History of Present Illness Reason for Visit: The patient is a 66-year-old female who reports episodes of left upper abdominal pain and lower chest and epigastric discomfort. This is occurred over the last several days. It is not clearly related to exertion. Initial workup showed a abdominal series that showed no acute changes. CT scan of the abdomen and pelvis showed no abnormalities. EKG shows a sinus rhythm with no acute ischemic changes. Cardiac enzymes have been normal. The patient is fatigued this morning but denies any further pain. Of note she had a Lexiscan test done in August 2015 that showed normal LV function and a small fixed defect in the inferior basal region. Past Medical History Cardiovascular: CHF, HTN Psych: Depression Renal/: Other (reported right nephrectomy) Past Surgical History Past Surgical History: Other (right nephrectomy) Family History Family History: Heart Disease Social History No ALCOHOL: none Current Problem List Problem List Problems Medical Problems: (1) Chest pain Status: Acute Current Medications Current Medications Current Medications Morphine Sulfate 2 mg PRN Q15MIN PRN IV/SQ PAIN GREATER THAN 3/10 Last administered on 03/15/17 09:31; Start 03/15/17 at 07:30; Stop 03/16/17 at 07:29; Status DC Sodium Chloride 1,000 ml @ 1,000 mls/hr Q1H IV Last administered on 03/15/17 08:25; Start 03/15/17 at 07:17; Stop 03/15/17 at 08:16; Status DC Iohexol (Omnipaque 240 Mg/ml) 50 ml 1X ONCE PO Last administered on 03/15/17 10:13; Start 03/15/17 at 09:15; Stop 03/15/17 at 09:26; Status DC Ondansetron HCl (Zofran) 4 mg PRN Q8HRS PRN IV NAUSEA/VOMITING; Start 03/15/17 at 11:45; Stop 03/16/17 at 11:44; Status DC Morphine Sulfate 2 mg PRN Q2HR PRN IV PAIN Last administered on 03/15/17 21:16 ; Start 03/15/17 at 11:45; Stop 03/16/17 at 11:44; Status DC Aspirin (Gemma Aspirin) 325 mg 1X ONCE PO Last administered on 03/15/17 12:00 ; Start 03/15/17 at 12:00; Stop 03/15/17 at 12:01; Status DC Dextrose (Dextrose 50%-Water Syringe) 25 gm 1X ONCE IV ; Start 03/15/17 at 14:00 ; Stop 03/15/17 at 14:10; Status DC Dextrose (Dextrose 50%-Water Syringe) 25 gm PRN Q15MIN PRN IV LOW BLOOD SUGAR; Start 03/15/17 at 14:15 Allopurinol (Zyloprim) 100 mg DAILY PO Last administered on 03/16/17 09:21; Start 03/15/17 at 15:00 Citalopram Hydrobromide (CeleXA) 10 mg HS PO Last administered on 03/15/17 21: 04; Start 03/15/17 at 21:00 Cyanocobalamin (Vitamin B-12) 1,000 mcg DAILY PO Last administered on 03/16/17 09:21; Start 03/15/17 at 15:00 Furosemide (Lasix) 40 mg DAILY PO Last administered on 03/16/17 09:20; Start at 09:00 Insulin Aspart (Novolog) 20 units DAILYWLUN SQ ; Start 03/16/17 at 12:00; Stop at 12:00; Status DC Levothyroxine Sodium (Synthroid) 25 mcg DAILY07 PO Last administered on 09:21; Start 03/16/17 at 09:00 Lisinopril (Prinivil) 10 mg BID PO Last administered on 03/16/17 09:21; Start 03/15/17 at 21:00 Rivaroxaban (Xarelto) 15 mg DAILYWSUP PO Last administered on 03/15/17 18:29; Start 03/15/17 at 17:00 Acetaminophen (Tylenol) 650 mg PRN Q6HRS PRN PO MILD PAIN / TEMP; Start at 15:15 EZETIMIBE (Zetia) 10 mg DAILY PO Last administered on 03/16/17 09:21; Start 03/16/17 at 09:00 Gabapentin (Neurontin) 300 mg DAILY PO Last administered on 03/16/17 09:21; Start 03/16/17 at 09:00 Gabapentin (Neurontin) 600 mg QHS PO Last administered on 03/15/17 21:04; Start 03/15/17 at 21:00 Insulin Detemir (Levemir) 50 units BIDAC SQ Last administered on 03/16/17 08:03 ; Start 03/15/17 at 16:30 Metolazone (Zaroxolyn) 5 mg MoWeFr PO ; Start 03/17/17 at 09:00 Fish Oil (Fish Oil) 1,000 mg DAILY PO Last administered on 03/16/17 09:20; Start 03/16/17 at 09:00 Potassium Chloride (Klor-Con) 20 meq DAILYWBKFT PO Last administered on 09:20; Start 03/15/17 at 17:00 Info (Anti-Coagulation Monitoring By Pharmacy) 1 each PRN DAILY PRN MC SEE COMMENTS Last administered on 03/16/17 12:47; Start 03/15/17 at 15:00 Simvastatin (Zocor) 20 mg DAILY PO Last administered on 03/16/17 09:21; Start 03/16/17 at 09:00 Insulin Aspart (Novolog) 0-12 UNITS QIDACHS SQ Last administered on 03/16/17 12 :10; Start 03/16/17 at 07:30 Insulin Aspart (Novolog) 10 units TIDAC SQ Last administered on 03/16/17 12:10 ; Start 03/16/17 at 07:30 Heparin Sodium (Porcine) 5,000 unit Q12HR SQ Last administered on 03/16/17 09: 28; Start 03/16/17 at 09:00; Stop 03/16/17 at 12:31; Status DC Prednisone (Prednisone) 60 mg 1X ONCE PO Last administered on 03/16/17 13:22; Start 03/16/17 at 13:00; Stop 03/16/17 at 13:07; Status DC Methocarbamol (Robaxin) 500 mg TID PRN PRN PO MUSCLE SPASMS; Start 03/16/17 at 13:00 Active Scripts Active Reported Allopurinol 100 Mg Tablet 1 Tab PO DAILY Vitamin B-12 (Cyanocobalamin (Vitamin B-12)) 1,000 Mcg Tablet 1 Tab PO DAILY Fish Oil ([place]-3 Fatty Acids) 300 Mg Capsule 300 Mg PO DAILY Anti-Diarrheal (Loperamide Hcl) 2 Mg Capsule 2 Mg PO DAILY PRN Arthritis Pain Reliever (Acetaminophen) 650 Mg Tablet.er 650 Mg PO BID Metolazone 5 Mg Tablet 5 Mg PO 3X/WEEK Novolog (Insulin Aspart) 100 Unit/1 Ml Vial 20 Unit SQ AFTRNOON Novolog (Insulin Aspart) 100 Unit/1 Ml Cartridge 15 Unit SQ DAILY08 Lantus (Insulin Glargine,Hum.rec.anlog) 100 Unit/1 Ml Vial 50 Unit SQ BIDAC Potassium Chloride 20 Meq Tablet.er 20 Meq PO DAILY Gabapentin 600 Mg Tablet 600 Mg PO HS Gabapentin 300 Mg Capsule 300 Mg PO DAILY Lisinopril 10 Mg Tablet 1 Tab PO BID Xarelto (Rivaroxaban) 15 Mg Tablet 15 Mg PO DAILY Furosemide 40 Mg Tablet 1 Tab PO DAILY Vytorin 10-20 Mg Tablet (Ezetimibe/Simvastatin) 1 Each Tablet 1 Tab PO DAILY Citalopram Hbr (Citalopram Hydrobromide) 10 Mg Tablet 1 Tab PO HS Levothyroxine Sodium 25 Mcg Tablet 1 Tab PO DAILY Allergies Allergies: Coded Allergies: castor oil (Verified Allergy, Intermediate, rash, 01/17/17) ROS General: YES: Fatigue Cardiovascular: yes Chest Pain Gastrointestinal: Yes Abdominal Pain Physical Exam General: No acute distress HEENT: Atraumatic Lungs: Clear to auscultation Heart: Regular rate Abdomen: Normal bowel sounds Extremities: No clubbing Vitals VITALS Vital Signs Date Time Temp Pulse Resp B/P (MAP) Pulse Ox O2 Delivery O2 Flow Rate FiO2 03/16/17 10:44 97.5 77 22 106/43 (64) 95 Room Air 97.5 03/16/17 08:00 4.0 Labs Labs Laboratory Tests Test 03/15/17 08:13 03/15/17 13:52 03/15/17 16:40 03/15/17 17:35 White Blood Count 9.5 x10^3/uL (4.0-11.0) Red Blood Count 3.94 x10^6/uL (3.50-5.40) Hemoglobin 12.1 g/dL (12.0-15.5) Hematocrit 36.2 % (36.0-47.0) Mean Corpuscular Volume 92 fL (79-100) Mean Corpuscular Hemoglobin 31 pg (25-35) Mean Corpuscular Hemoglobin Concent 33 g/dL (31-37) Red Cell Distribution Width 15.0 % (11.5-14.5) Platelet Count 142 x10^3/uL (140-400) Neutrophils (%) (Auto) 53 % (31-73) Lymphocytes (%) (Auto) 32 % (24-48) Monocytes (%) (Auto) 9 % (0-9) Eosinophils (%) (Auto) 4 % (0-3) Basophils (%) (Auto) 1 % (0-3) Neutrophils # (Auto) 5.1 x10^3uL (1.8-7.7) Lymphocytes # (Auto) 3.1 x10^3/uL (1.0-4.8) Monocytes # (Auto) 0.9 x10^3/uL (0.0-1.1) Eosinophils # (Auto) 0.4 x10^3/uL (0.0-0.7) Basophils # (Auto) 0.1 x10^3/uL (0.0-0.2) Prothrombin Time 22.3 SEC (11.7-14.0) Prothromb Time International Ratio 2.1 (0.8-1.1) Sodium Level 142 mmol/L (136-145) Potassium Level 4.1 mmol/L (3.5-5.1) Chloride Level 103 mmol/L (98-107) Carbon Dioxide Level 33 mmol/L (21-32) Anion Gap 6 (6-14) Blood Urea Nitrogen 47 mg/dL (7-20) Creatinine 2.2 mg/dL (0.6-1.0) Estimated GFR (Cockcroft-Gault) 22.3 Glucose Level 55 mg/dL (70-99) Calcium Level 9.5 mg/dL (8.5-10.1) Magnesium Level 1.7 mg/dL (1.8-2.4) Total Bilirubin 0.2 mg/dL (0.2-1.0) Direct Bilirubin 0.1 mg/dL (0.0-0.2) Aspartate Amino Transf (AST/SGOT) 21 U/L (15-37) Alanine Aminotransferase (ALT/SGPT) 20 U/L (14-59) Alkaline Phosphatase 72 U/L (46-116) Creatine Kinase 159 U/L (26-192) Creatine Kinase MB (Mass) 1.6 ng/mL (0.0-3.6) Creatine Kinase MB Relative Index 1.0 % (0-4) Troponin I Quantitative 0.022 ng/mL (0.000-0.055) 0.020 ng/mL (0.000-0.055) TE-Kwy-H-Type Natriuretic Peptide 127 pg/mL (0-124) Total Protein 7.0 g/dL (6.4-8.2) Albumin 3.2 g/dL (3.4-5.0) Lipase 247 U/L (73-393) Glucose (Fingerstick) 60 mg/dL (70-99) 147 mg/dL (70-99) Test 03/15/17 20:38 03/15/17 22:15 03/15/17 23:45 03/16/17 05:40 Glucose (Fingerstick) 184 mg/dL (70-99) Urine Collection Type Unknown Urine Color Yellow Urine Clarity Clear Urine pH 5.5 Urine Specific Filer 1.015 Urine Protein Negative mg/dL (NEG-TRACE) Urine Glucose (UA) Negative mg/dL (NEG) Urine Ketones (Stick) Negative mg/dL (NEG) Urine Blood Negative (NEG) Urine Nitrite Negative (NEG) Urine Bilirubin Negative (NEG) Urine Urobilinogen Dipstick 0.2 mg/dL (0.2 mg/dL) Urine Leukocyte Esterase Small (NEG) Urine RBC 0 /HPF (0-2) Urine WBC 5-10 /HPF (0-4) Urine Squamous Epithelial Cells Many /LPF Urine Bacteria Many /HPF (0-FEW) Urine Mucus Mod /LPF Troponin I Quantitative < 0.017 ng/mL (0.000-0.055) White Blood Count 6.1 x10^3/uL (4.0-11.0) Red Blood Count 3.74 x10^6/uL (3.50-5.40) Hemoglobin 11.7 g/dL (12.0-15.5) Hematocrit 35.2 % (36.0-47.0) Mean Corpuscular Volume 94 fL (79-100) Mean Corpuscular Hemoglobin 31 pg (25-35) Mean Corpuscular Hemoglobin Concent 33 g/dL (31-37) Red Cell Distribution Width 15.7 % (11.5-14.5) Platelet Count 126 x10^3/uL (140-400) Neutrophils (%) (Auto) 46 % (31-73) Lymphocytes (%) (Auto) 39 % (24-48) Monocytes (%) (Auto) 8 % (0-9) Eosinophils (%) (Auto) 6 % (0-3) Basophils (%) (Auto) 1 % (0-3) Neutrophils # (Auto) 2.8 x10^3uL (1.8-7.7) Lymphocytes # (Auto) 2.4 x10^3/uL (1.0-4.8) Monocytes # (Auto) 0.5 x10^3/uL (0.0-1.1) Eosinophils # (Auto) 0.4 x10^3/uL (0.0-0.7) Basophils # (Auto) 0.1 x10^3/uL (0.0-0.2) Sodium Level 141 mmol/L (136-145) Potassium Level 4.9 mmol/L (3.5-5.1) Chloride Level 105 mmol/L (98-107) Carbon Dioxide Level 32 mmol/L (21-32) Anion Gap 4 (6-14) Blood Urea Nitrogen 48 mg/dL (7-20) Creatinine 2.0 mg/dL (0.6-1.0) Estimated GFR (Cockcroft-Gault) 24.9 Glucose Level 145 mg/dL (70-99) Calcium Level 8.3 mg/dL (8.5-10.1) Creatine Kinase 154 U/L (26-192) Creatine Kinase MB (Mass) 1.2 ng/mL (0.0-3.6) Creatine Kinase MB Relative Index 0.8 % (0-4) Test 03/16/17 07:22 03/16/17 10:40 Glucose (Fingerstick) 132 mg/dL (70-99) 151 mg/dL (70-99) Laboratory Tests Test 03/15/17 13:52 03/15/17 16:40 03/15/17 17:35 03/15/17 20:38 Glucose (Fingerstick) 60 mg/dL (70-99) 147 mg/dL (70-99) 184 mg/dL (70-99) Troponin I Quantitative 0.020 ng/mL (0.000-0.055) Test 03/15/17 22:15 03/15/17 23:45 03/16/17 05:40 03/16/17 07:22 Urine Collection Type Unknown Urine Color Yellow Urine Clarity Clear Urine pH 5.5 Urine Specific Filer 1.015 Urine Protein Negative mg/dL (NEG-TRACE) Urine Glucose (UA) Negative mg/dL (NEG) Urine Ketones (Stick) Negative mg/dL (NEG) Urine Blood Negative (NEG) Urine Nitrite Negative (NEG) Urine Bilirubin Negative (NEG) Urine Urobilinogen Dipstick 0.2 mg/dL (0.2 mg/dL) Urine Leukocyte Esterase Small (NEG) Urine RBC 0 /HPF (0-2) Urine WBC 5-10 /HPF (0-4) Urine Squamous Epithelial Cells Many /LPF Urine Bacteria Many /HPF (0-FEW) Urine Mucus Mod /LPF Troponin I Quantitative < 0.017 ng/mL (0.000-0.055) White Blood Count 6.1 x10^3/uL (4.0-11.0) Red Blood Count 3.74 x10^6/uL (3.50-5.40) Hemoglobin 11.7 g/dL (12.0-15.5) Hematocrit 35.2 % (36.0-47.0) Mean Corpuscular Volume 94 fL (79-100) Mean Corpuscular Hemoglobin 31 pg (25-35) Mean Corpuscular Hemoglobin Concent 33 g/dL (31-37) Red Cell Distribution Width 15.7 % (11.5-14.5) Platelet Count 126 x10^3/uL (140-400) Neutrophils (%) (Auto) 46 % (31-73) Lymphocytes (%) (Auto) 39 % (24-48) Monocytes (%) (Auto) 8 % (0-9) Eosinophils (%) (Auto) 6 % (0-3) Basophils (%) (Auto) 1 % (0-3) Neutrophils # (Auto) 2.8 x10^3uL (1.8-7.7) Lymphocytes # (Auto) 2.4 x10^3/uL (1.0-4.8) Monocytes # (Auto) 0.5 x10^3/uL (0.0-1.1) Eosinophils # (Auto) 0.4 x10^3/uL (0.0-0.7) Basophils # (Auto) 0.1 x10^3/uL (0.0-0.2) Sodium Level 141 mmol/L (136-145) Potassium Level 4.9 mmol/L (3.5-5.1) Chloride Level 105 mmol/L (98-107) Carbon Dioxide Level 32 mmol/L (21-32) Anion Gap 4 (6-14) Blood Urea Nitrogen 48 mg/dL (7-20) Creatinine 2.0 mg/dL (0.6-1.0) Estimated GFR (Cockcroft-Gault) 24.9 Glucose Level 145 mg/dL (70-99) Calcium Level 8.3 mg/dL (8.5-10.1) Creatine Kinase 154 U/L (26-192) Creatine Kinase MB (Mass) 1.2 ng/mL (0.0-3.6) Creatine Kinase MB Relative Index 0.8 % (0-4) Glucose (Fingerstick) 132 mg/dL (70-99) Test 03/16/17 10:40 Glucose (Fingerstick) 151 mg/dL (70-99) Images Images Acute abdominal series with no acute changes. CT scan of the abdomen and pelvis with no acute changes. Assessment/Plan Assessment/Plan 1. Abdominal discomfort. Discomfort has improved. Imaging has shown no acute changes. Will continue as per the primary service. 2. Lower chest discomfort. This also has improved. Initial troponin is normal. EKG shows no acute changes. Patient had a Lexiscan test in August 2015 as noted above that showed a small fixed defect in the inferior basal region. At this time we'll complete a rule out myocardial infarction. We'll check an echocardiogram for LV function. We'll check a Lexiscan test to exclude underlying ischemia. 3. Probable chronic diastolic heart failure. Patient is not in failure at this time. We'll continue present medications. We'll check an echocardiogram as above. 4 Hypertension. We'll continue present medications with monitoring. 5. Diabetes mellitus. As per the primary service. 6. Morbid obesity. Thank you for allowing us to participate in the care of your patient. HEVER LOCKE MD March 16, 2017 13:51
--- NOTE | 2017-03-16 14:35 | HP ---
ADMIT DATE: 03/15/2017 CHIEF COMPLAINT: Left-sided abdominal pain/chest pain. HISTORY OF PRESENT ILLNESS AND HOSPITAL COURSE: This patient is a 66-year-old morbidly obese female admitted with left upper quadrant abdominal pain, which she states happening within the last 24 hours, having episodes that last approximately 5 minutes and are sharp. They are somewhat reproducible with palpation. This starts on her left lower rib cage and in her chest radiating toward her back. She denies any diaphoresis, nausea, vomiting, or shortness of breath. Due to the patient's multiple risk factors, it was felt this may be an atypical presentation for chest pain. Therefore, the patient was admitted for further evaluation and cardiology consultation. PAST MEDICAL HISTORY: 1. Type 2 diabetes. 2. Hypertension. 3. Hypothyroidism. 4. Morbid obesity. 5. Congestive heart failure. 6. Major depression. 7. Neuropathy. 8. Gouty arthritis. FAMILY HISTORY: At this time is noncontributory. SOCIAL HISTORY: Smoking and alcohol use is not elucidated. PAST SURGICAL HISTORY: Significant for cholecystectomy and right nephrectomy. REVIEW OF SYSTEMS: The patient was doing well until 12-24 hours prior to admission where she began having increasing left-sided abdominal and chest discomfort. She came to the Emergency Room with complaints of pain, 08/19. She had initially a negative ER workup including CAT scan of the abdomen, troponins, and EKG, although EKG did show some questionable T-wave inversions in inferior leads. PHYSICAL EXAMINATION: GENERAL: This is a morbidly obese female in no apparent distress; on my exam, she is sleepy, she is arousable. HEENT: Benign. NECK: Supple, without JVD or bruit. CARDIAC: Regular rate and rhythm. LUNGS: Clear. ABDOMEN: Soft. She had acute tenderness over the left upper quadrant of the abdomen and rib cage with involuntary guarding, but no rebound. EXTREMITIES: 2+ pulses without significant edema. NEUROLOGIC: Showed no unilateral findings. ASSESSMENT: 1. Left-sided chest pain consistent with costochondritis. 2. Chronic renal failure with baseline creatinine of 2.2. 3. Atypical chest pain with multiple risk factors. PLAN: To proceed with cardiology evaluation. Symptomatically, treat pain and ____ consider discharge patient if MPI is negative. LASHELL VELÁZQUEZ MD DR: JAZIEL/sarkis JOB#: [id number] / [id number]
[2017-03-16 14:40] VITALS: BP 113/42
[2017-03-16] MEDS: RIVAROXABAN 15 MG TABLET. PO SCH (17:07)
[2017-03-16 19:57] VITALS: BP 130/68
[2017-03-16] MEDS: CITALOPRAM 10 MG TABLET. PO SCH (20:17)
[2017-03-16 23:26] VITALS: BP 101/49
[2017-03-17 03:19] VITALS: BP 117/53
[2017-03-17 05:04] LABS: CHOLESTEROL/HDL RATIO 2.6
[2017-03-17] MEDS: LEVOTHYROXINE 25 MCG TABLET. PO SCH (05:09)
[2017-03-17 07:00] VITALS: BP 122/50
[2017-03-17] MEDS: INSULIN ASPART 300 UNITS/3 ML INSULN.PEN SQ SCH ×8 (07:30→20:50)
[2017-03-17] MEDS ORDERED: REGADENOSON 0.4 MG/5 ML DISP.SYRIN. IV ONE (07:30)
[2017-03-17] MEDS: POTASSIUM CHLORIDE 20 MEQ TABLET.ER. PO SCH (08:00)
[2017-03-17] MEDS: INSULIN DETEMIR 300 UNITS/3 ML INSULN.PEN. SQ SCH ×2 (08:01→17:20)
[2017-03-17] MEDS ORDERED: metOLazone 2.5 MG TABLET PO SCH (09:00)
[2017-03-17] MEDS: MUPIROCIN 2 % NASAL OINTMENT 22GM TUBE. NS SCH ×2 (09:00→20:53)
[2017-03-17 10:01] LABS: CREATININE 2.1 mg/dL (0.6-1.0); GFR 23.5; MAGNESIUM 1.9 mg/dL (1.8-2.4); POTASSIUM 5.3 mmol/L (3.5-5.1)
[2017-03-17 11:00] VITALS: BP 109/49
[2017-03-17] MEDS: GABAPENTIN 300 MG CAPSULE. PO SCH ×2 (11:12→20:37)
[2017-03-17] MEDS: FUROSEMIDE 40 MG TABLET. PO SCH (11:13)
[2017-03-17] MEDS: OMEGA-3 FATTY ACIDS/FISH OIL 1,000 MG CAPSULE. PO SCH (11:13)
[2017-03-17] MEDS: CYANOCOBALAMIN (VITAMIN B-12) 1,000 MCG TABLET. PO SCH (11:13)
[2017-03-17] MEDS: EZETIMIBE 10 MG TABLET. PO SCH (11:13)
[2017-03-17] MEDS: SIMVASTATIN 20 MG TABLET PO SCH (11:13)
[2017-03-17] MEDS: ALLOPURINOL 100 MG TABLET. PO SCH (11:14)
--- NOTE | 2017-03-17 12:17 | PDOC ---
CARDIO Progress Notes Date and Time Date of Service 03/17/2017 Time of Evaluation 0915 Subjective Subjective: No Chest Pain, No shortness of breath, No Palpitations, No Dizziness, Other (Anxious about testing but verbalized slept ok last night) Vitals Vitals Vital Signs Date Time Temp Pulse Resp B/P (MAP) Pulse Ox O2 Delivery O2 Flow Rate FiO2 03/17/17 08:47 Nasal Cannula 4.0 03/17/17 07:00 97.8 79 16 122/50 (74) 95 97.8 Weight Weight [ ] Input and Output Intake and Output Intake and Output 03/17/17 07:00 Intake Total 880 ml Output Total 1800 ml Balance -920 ml Intake Oral 880 ml Output Urine Total 1800 ml Laboratory Labs Laboratory Tests Test 03/16/17 16:54 03/16/17 20:44 03/17/17 03:50 03/17/17 06:58 Glucose (Fingerstick) 149 mg/dL (70-99) 284 mg/dL (70-99) 301 mg/dL (70-99) Sodium Level 142 mmol/L (136-145) Potassium Level 5.3 mmol/L (3.5-5.1) Chloride Level 101 mmol/L (98-107) Carbon Dioxide Level 29 mmol/L (21-32) Anion Gap 12 (6-14) Blood Urea Nitrogen 50 mg/dL (7-20) Creatinine 2.1 mg/dL (0.6-1.0) Estimated GFR (Cockcroft-Gault) 23.5 Glucose Level 339 mg/dL (70-99) Calcium Level 9.0 mg/dL (8.5-10.1) Magnesium Level 1.9 mg/dL (1.8-2.4) Troponin I Quantitative 0.017 ng/mL (0.000-0.055) Triglycerides Level 82 mg/dL (0-150) Cholesterol Level 136 mg/dL (0-200) LDL Cholesterol, Calculated 67 mg/dL (0-100) VLDL Cholesterol, Calculated 16 mg/dL (0-40) Non-HDL Cholesterol Calculated 83 mg/dL (0-129) HDL Cholesterol 53 mg/dL (40-60) Cholesterol/HDL Ratio 2.6 Test 03/17/17 10:59 Glucose (Fingerstick) 394 mg/dL (70-99) Microbiology Micro Microbiology 03/15/17 Urine Culture - Preliminary, Resulted 03/15/17 Urine Culture Result 1 (PHILLIP) - Preliminary, Resulted Physical Exam HEENT: Neck Supple W Full Motion Chest: Symmetric LUNGS: Clear to Auscultation Heart: S1S2, RRR (SR) Abdomen: Soft N/T Extremities: No Calf Tenderness, Other (trace Le edema) Neurology: alert, oriented, follow commands Assessment Assessment 1. Atypical CP: mainly abdominal discomfort which are both now absent. 2. Chronic diastolic CHF: compensated 3. HTN: controlled 4. DM2/CKD: Uncontrolled BG. Stage 4 appears to be her baseline with Cr in the low 2s. K 5.3 5. Morbid obesity 6. HLP: on statin 7. Hx of RLE DVT with family (mother) hx of clotting disorder: hence xarelto Recommendations 1. Hold ACEi 2. Continue with po diuretic therapy 3. MPI and TTE today 4. Maintain po hydration once NPO lifted from MPI. 5. Secondary prevention as tolerated GREG MCGUIRE APRN March 17, 2017 12:17
--- NOTE | 2017-03-17 12:52 | CARD ---
APPROVED REPORT EXAM: Two-dimensional and M-mode echocardiogram with Doppler and color Doppler. Other Information Quality : GoodHR: 96bpm Rhythm : NSR INDICATION Heart failure RISK FACTORS Obesity 2D DIMENSIONS RVDd2.8 (2.9-3.5cm)Left Atrium(2D)3.1 (1.6-4.0cm) IVSd0.8 (0.7-1.1cm)Aortic Root(2D)2.8 (2.0-3.7cm) LVDd4.5 (3.9-5.9cm)LVOT Diameter2.1 (1.8-2.4cm) PWd1.0 (0.7-1.1cm)LVDs2.7 (2.5-4.0cm) FS (%) 39.0 %SV63.5 ml LVEF(%)69.5 (>50%) Aortic Valve AoV Peak Jose.147.4cm/sAoV VTI28.4cm AO Peak GR.8.7mmHgLVOT Peak Jose.125.8cm/s AO Mean GR.4mmHgAVA (VMAX)3.04cm2 Mitral Valve MV E Edvdbkgy90.3cm/sMV E Peak Gr.6mmHg MV DECEL [id number] A Wzublfka242.5cm/s MV E Mean Gr.3mmHgE/A Ratio0.8 MV A [id number] Pulmonary Valve PV Peak Rggbgbon387.0cm/s Pulmonary Vein S1 Yuctcxgd07.6cm/sD2 Zjdtruxo41.4cm/s PVa [id number] LEFT VENTRICLE The left ventricle is normal size. There is normal left ventricular wall thickness. The left ventricu lar systolic function is normal. The Ejection Fraction is 65-70%. There is normal LV segmental wall m otion. Transmitral Doppler flow pattern is Grade I-abnormal relaxation pattern. RIGHT VENTRICLE The right ventricle is normal size. There is normal right ventricular wall thickness. The right ventr icular systolic function is normal. ATRIA The left atrium size is normal. The right atrium size is normal. The interatrial septum is intact wit h no evidence for an atrial septal defect or patent foramen ovale as noted on 2-D or Doppler imaging. AORTIC VALVE The aortic valve is mildly sclerotic. Doppler and Color Flow revealed no significant aortic regurgita tion. There is no significant aortic valvular stenosis. MITRAL VALVE Mitral annular calcification is mild. The mitral valve leaflets are thickened. There is no evidence o f mitral valve prolapse. There is no mitral valve stenosis. Doppler and Color Flow revealed no mitral valve regurgitation noted. TRICUSPID VALVE Doppler and Color Flow revealed no tricuspid valve regurgitation noted. Unable to determine pulmonary artery pressure at exam time. PULMONIC VALVE The pulmonic valve is not well visualized. Doppler and Color Flow revealed no pulmonic valvular regur gitation. There is no pulmonic valvular stenosis. GREAT VESSELS The aortic root is normal in size. The ascending aorta is normal in size. The pulmonary artery is nor mal. The IVC was obscured, unable to assess. PERICARDIAL EFFUSION There is no evidence of significant pericardial effusion. Critical Notification Critical Value: No <Conclusion> The left ventricular systolic function is normal. The Ejection Fraction is 65-70%. There is normal LV segmental wall motion. Transmitral Doppler flow pattern is Grade I-abnormal relaxation pattern. There is no evidence of significant pericardial effusion.
[2017-03-17 15:00] VITALS: BP 125/40
[2017-03-17] MEDS ORDERED: DEXTROSE 50% 25 GM / 50ML DISP.SYRIN. IV PRN (15:45)
--- NOTE | 2017-03-17 15:46 | PDOC ---
PROGRESS NOTES Subjective Subjective Her chest pain resolved the day of admission and not recurred, she has had echo and results are essentially normal, EF normal, Stress MPI in progress but no chest pain with initial part. Her blood sugars are elevated but she got a big breakfast as protocol for MPI. Her gout pain has resolved in her feet. She has bilateral bicep pain from using the handrail to get up her 12-16 steps at home Objective Objective Vital Signs Date Time Temp Pulse Resp B/P (MAP) Pulse Ox O2 Delivery O2 Flow Rate FiO2 03/17/17 11:00 98.1 83 18 109/49 (69) 95 Room Air 98.1 03/17/17 08:47 4.0 Intake and Output 03/17/17 07:00 Intake Total 880 ml Output Total 1800 ml Balance -920 ml Intake Oral 880 ml Output Urine Total 1800 ml Physical Exam Abdomen: Normal bowel sounds, Soft Heart: Regular rate Extremities: No clubbing, No cyanosis General: Alert, Oriented X3, Cooperative HEENT: Atraumatic Lungs: Clear to auscultation MUSCULOSKELETAL: No joint tenderness, Other (bicep muscular tenderness, no chest wall tenderness) Neuro: Normal speech Psych/Mental Status: Mental status NL, Mood NL Skin: No breakdown Assessment Assessment Problems Medical Problems: (1) Chest pain Status: Acute Plan Plan of Care await MPI, control glucose Comment Review of Relevant I have reviewed the following items minda (where applicable) has been applied. Labs Laboratory Tests Test 03/15/17 16:40 03/15/17 17:35 03/15/17 20:38 03/15/17 22:15 Glucose (Fingerstick) 147 mg/dL (70-99) 184 mg/dL (70-99) Troponin I Quantitative 0.020 ng/mL (0.000-0.055) Urine Collection Type Unknown Urine Color Yellow Urine Clarity Clear Urine pH 5.5 Urine Specific Schulter 1.015 Urine Protein Negative mg/dL (NEG-TRACE) Urine Glucose (UA) Negative mg/dL (NEG) Urine Ketones (Stick) Negative mg/dL (NEG) Urine Blood Negative (NEG) Urine Nitrite Negative (NEG) Urine Bilirubin Negative (NEG) Urine Urobilinogen Dipstick 0.2 mg/dL (0.2 mg/dL) Urine Leukocyte Esterase Small (NEG) Urine RBC 0 /HPF (0-2) Urine WBC 5-10 /HPF (0-4) Urine Squamous Epithelial Cells Many /LPF Urine Bacteria Many /HPF (0-FEW) Urine Mucus Mod /LPF Test 03/15/17 23:45 03/16/17 05:40 03/16/17 07:22 03/16/17 10:40 Troponin I Quantitative < 0.017 ng/mL (0.000-0.055) White Blood Count 6.1 x10^3/uL (4.0-11.0) Red Blood Count 3.74 x10^6/uL (3.50-5.40) Hemoglobin 11.7 g/dL (12.0-15.5) Hematocrit 35.2 % (36.0-47.0) Mean Corpuscular Volume 94 fL (79-100) Mean Corpuscular Hemoglobin 31 pg (25-35) Mean Corpuscular Hemoglobin Concent 33 g/dL (31-37) Red Cell Distribution Width 15.7 % (11.5-14.5) Platelet Count 126 x10^3/uL (140-400) Neutrophils (%) (Auto) 46 % (31-73) Lymphocytes (%) (Auto) 39 % (24-48) Monocytes (%) (Auto) 8 % (0-9) Eosinophils (%) (Auto) 6 % (0-3) Basophils (%) (Auto) 1 % (0-3) Neutrophils # (Auto) 2.8 x10^3uL (1.8-7.7) Lymphocytes # (Auto) 2.4 x10^3/uL (1.0-4.8) Monocytes # (Auto) 0.5 x10^3/uL (0.0-1.1) Eosinophils # (Auto) 0.4 x10^3/uL (0.0-0.7) Basophils # (Auto) 0.1 x10^3/uL (0.0-0.2) Sodium Level 141 mmol/L (136-145) Potassium Level 4.9 mmol/L (3.5-5.1) Chloride Level 105 mmol/L (98-107) Carbon Dioxide Level 32 mmol/L (21-32) Anion Gap 4 (6-14) Blood Urea Nitrogen 48 mg/dL (7-20) Creatinine 2.0 mg/dL (0.6-1.0) Estimated GFR (Cockcroft-Gault) 24.9 Glucose Level 145 mg/dL (70-99) Calcium Level 8.3 mg/dL (8.5-10.1) Creatine Kinase 154 U/L (26-192) Creatine Kinase MB (Mass) 1.2 ng/mL (0.0-3.6) Creatine Kinase MB Relative Index 0.8 % (0-4) Glucose (Fingerstick) 132 mg/dL (70-99) 151 mg/dL (70-99) Test 03/16/17 16:54 03/16/17 20:44 03/17/17 03:50 03/17/17 06:58 Glucose (Fingerstick) 149 mg/dL (70-99) 284 mg/dL (70-99) 301 mg/dL (70-99) Sodium Level 142 mmol/L (136-145) Potassium Level 5.3 mmol/L (3.5-5.1) Chloride Level 101 mmol/L (98-107) Carbon Dioxide Level 29 mmol/L (21-32) Anion Gap 12 (6-14) Blood Urea Nitrogen 50 mg/dL (7-20) Creatinine 2.1 mg/dL (0.6-1.0) Estimated GFR (Cockcroft-Gault) 23.5 Glucose Level 339 mg/dL (70-99) Calcium Level 9.0 mg/dL (8.5-10.1) Magnesium Level 1.9 mg/dL (1.8-2.4) Troponin I Quantitative 0.017 ng/mL (0.000-0.055) Triglycerides Level 82 mg/dL (0-150) Cholesterol Level 136 mg/dL (0-200) LDL Cholesterol, Calculated 67 mg/dL (0-100) VLDL Cholesterol, Calculated 16 mg/dL (0-40) Non-HDL Cholesterol Calculated 83 mg/dL (0-129) HDL Cholesterol 53 mg/dL (40-60) Cholesterol/HDL Ratio 2.6 Test 03/17/17 10:59 Glucose (Fingerstick) 394 mg/dL (70-99) Laboratory Tests Test 03/16/17 16:54 03/16/17 20:44 03/17/17 03:50 03/17/17 06:58 Glucose (Fingerstick) 149 mg/dL (70-99) 284 mg/dL (70-99) 301 mg/dL (70-99) Sodium Level 142 mmol/L (136-145) Potassium Level 5.3 mmol/L (3.5-5.1) Chloride Level 101 mmol/L (98-107) Carbon Dioxide Level 29 mmol/L (21-32) Anion Gap 12 (6-14) Blood Urea Nitrogen 50 mg/dL (7-20) Creatinine 2.1 mg/dL (0.6-1.0) Estimated GFR (Cockcroft-Gault) 23.5 Glucose Level 339 mg/dL (70-99) Calcium Level 9.0 mg/dL (8.5-10.1) Magnesium Level 1.9 mg/dL (1.8-2.4) Troponin I Quantitative 0.017 ng/mL (0.000-0.055) Triglycerides Level 82 mg/dL (0-150) Cholesterol Level 136 mg/dL (0-200) LDL Cholesterol, Calculated 67 mg/dL (0-100) VLDL Cholesterol, Calculated 16 mg/dL (0-40) Non-HDL Cholesterol Calculated 83 mg/dL (0-129) HDL Cholesterol 53 mg/dL (40-60) Cholesterol/HDL Ratio 2.6 Test 03/17/17 10:59 Glucose (Fingerstick) 394 mg/dL (70-99) Microbiology 03/15/17 Urine Culture - Final, Complete 03/15/17 Urine Culture Result 1 (PHILLIP) - Final, Complete Medications Current Medications Morphine Sulfate 2 mg PRN Q15MIN PRN IV/SQ PAIN GREATER THAN 3/10 Last administered on 03/15/17 09:31; Start 03/15/17 at 07:30; Stop 03/16/17 at 07:29; Status DC Sodium Chloride 1,000 ml @ 1,000 mls/hr Q1H IV Last administered on 03/15/17 08:25; Start 03/15/17 at 07:17; Stop 03/15/17 at 08:16; Status DC Iohexol (Omnipaque 240 Mg/ml) 50 ml 1X ONCE PO Last administered on 03/15/17 10:13; Start 03/15/17 at 09:15; Stop 03/15/17 at 09:26; Status DC Ondansetron HCl (Zofran) 4 mg PRN Q8HRS PRN IV NAUSEA/VOMITING; Start 03/15/17 at 11:45; Stop 03/16/17 at 11:44; Status DC Morphine Sulfate 2 mg PRN Q2HR PRN IV PAIN Last administered on 03/15/17 21:16 ; Start 03/15/17 at 11:45; Stop 03/16/17 at 11:44; Status DC Aspirin (Gemma Aspirin) 325 mg 1X ONCE PO Last administered on 03/15/17 12:00 ; Start 03/15/17 at 12:00; Stop 03/15/17 at 12:01; Status DC Dextrose (Dextrose 50%-Water Syringe) 25 gm 1X ONCE IV ; Start 03/15/17 at 14:00 ; Stop 03/15/17 at 14:10; Status DC Dextrose (Dextrose 50%-Water Syringe) 25 gm PRN Q15MIN PRN IV LOW BLOOD SUGAR; Start 03/15/17 at 14:15 Allopurinol (Zyloprim) 100 mg DAILY PO Last administered on 03/17/17 11:14; Start 03/15/17 at 15:00 Citalopram Hydrobromide (CeleXA) 10 mg HS PO Last administered on 03/16/17 20: 17; Start 03/15/17 at 21:00 Cyanocobalamin (Vitamin B-12) 1,000 mcg DAILY PO Last administered on 03/17/17 11:13; Start 03/15/17 at 15:00 Furosemide (Lasix) 40 mg DAILY PO Last administered on 03/17/17 11:13; Start at 09:00 Insulin Aspart (Novolog) 20 units DAILYWLUN SQ ; Start 03/16/17 at 12:00; Stop at 12:00; Status DC Levothyroxine Sodium (Synthroid) 25 mcg DAILY07 PO Last administered on 09:21; Start 03/16/17 at 09:00 Lisinopril (Prinivil) 10 mg BID PO Last administered on 03/16/17 20:18; Start 03/15/17 at 21:00; Stop 03/17/17 at 10:25; Status DC Rivaroxaban (Xarelto) 15 mg DAILYWSUP PO Last administered on 03/16/17 17:07; Start 03/15/17 at 17:00 Acetaminophen (Tylenol) 650 mg PRN Q6HRS PRN PO MILD PAIN / TEMP; Start at 15:15 EZETIMIBE (Zetia) 10 mg DAILY PO Last administered on 03/17/17 11:13; Start 03/16/17 at 09:00 Gabapentin (Neurontin) 300 mg DAILY PO Last administered on 03/17/17 11:12; Start 03/16/17 at 09:00 Gabapentin (Neurontin) 600 mg QHS PO Last administered on 03/16/17 20:18; Start 03/15/17 at 21:00 Insulin Detemir (Levemir) 50 units BIDAC SQ Last administered on 03/17/17 08:01 ; Start 03/15/17 at 16:30 Metolazone (Zaroxolyn) 5 mg MoWeFr PO Last administered on 03/17/17 11:14; Start 03/17/17 at 09:00 Fish Oil (Fish Oil) 1,000 mg DAILY PO Last administered on 03/17/17 11:13; Start 03/16/17 at 09:00 Potassium Chloride (Klor-Con) 20 meq DAILYWBKFT PO Last administered on 09:20; Start 03/15/17 at 17:00 Info (Anti-Coagulation Monitoring By Pharmacy) 1 each PRN DAILY PRN MC SEE COMMENTS Last administered on 03/16/17 12:47; Start 03/15/17 at 15:00 Simvastatin (Zocor) 20 mg DAILY PO Last administered on 03/17/17 11:13; Start 03/16/17 at 09:00 Insulin Aspart (Novolog) 0-12 UNITS QIDACHS SQ Last administered on 03/17/17 11 :26; Start 03/16/17 at 07:30 Insulin Aspart (Novolog) 10 units TIDAC SQ Last administered on 03/17/17 11:26 ; Start 03/16/17 at 07:30 Heparin Sodium (Porcine) 5,000 unit Q12HR SQ Last administered on 03/16/17 09: 28; Start 03/16/17 at 09:00; Stop 03/16/17 at 12:31; Status DC Prednisone (Prednisone) 60 mg 1X ONCE PO Last administered on 03/16/17 13:22; Start 03/16/17 at 13:00; Stop 03/16/17 at 13:07; Status DC Methocarbamol (Robaxin) 500 mg TID PRN PRN PO MUSCLE SPASMS; Start 03/16/17 at 13:00 Regadenoson (Lexiscan) 0.4 mg 1X ONCE IV Last administered on 03/17/17 08:14; Start 03/17/17 at 07:30; Stop 03/17/17 at 07:31; Status DC Mupirocin (Bactroban) 1 stephen BID NS ; Start 03/17/17 at 09:00 Active Scripts Active Reported Allopurinol 100 Mg Tablet 1 Tab PO DAILY Vitamin B-12 (Cyanocobalamin (Vitamin B-12)) 1,000 Mcg Tablet 1 Tab PO DAILY Fish Oil (Dover-3 Fatty Acids) 300 Mg Capsule 300 Mg PO DAILY Anti-Diarrheal (Loperamide Hcl) 2 Mg Capsule 2 Mg PO DAILY PRN Arthritis Pain Reliever (Acetaminophen) 650 Mg Tablet.er 650 Mg PO BID Metolazone 5 Mg Tablet 5 Mg PO 3X/WEEK Novolog (Insulin Aspart) 100 Unit/1 Ml Vial 20 Unit SQ AFTRNOON Novolog (Insulin Aspart) 100 Unit/1 Ml Cartridge 15 Unit SQ DAILY08 Lantus (Insulin Glargine,Hum.rec.anlog) 100 Unit/1 Ml Vial 50 Unit SQ BIDAC Potassium Chloride 20 Meq Tablet.er 20 Meq PO DAILY Gabapentin 600 Mg Tablet 600 Mg PO HS Gabapentin 300 Mg Capsule 300 Mg PO DAILY Lisinopril 10 Mg Tablet 1 Tab PO BID Xarelto (Rivaroxaban) 15 Mg Tablet 15 Mg PO DAILY Furosemide 40 Mg Tablet 1 Tab PO DAILY Vytorin 10-20 Mg Tablet (Ezetimibe/Simvastatin) 1 Each Tablet 1 Tab PO DAILY Citalopram Hbr (Citalopram Hydrobromide) 10 Mg Tablet 1 Tab PO HS Levothyroxine Sodium 25 Mcg Tablet 1 Tab PO DAILY Vitals/I & O Vital Sign - Last 24 Hours 03/16/17 03/16/17 03/16/17 03/16/17 19:57 19:59 20:18 23:26 Temp 98.1 98.4 98.1 98.4 Pulse 75 75 88 Resp 16 18 B/P (MAP) 130/68 (88) 130/68 101/49 (66) Pulse Ox 90 92 O2 Delivery Room Air Nasal Cannula Room Air O2 Flow Rate 4.0 03/17/17 03/17/17 03/17/17 03/17/17 03:19 07:00 08:47 11:00 Temp 98.1 97.8 98.1 98.1 97.8 98.1 Pulse 79 79 83 Resp 16 16 18 B/P (MAP) 117/53 (74) 122/50 (74) 109/49 (69) Pulse Ox 90 95 95 O2 Delivery Room Air Room Air Nasal Cannula Room Air O2 Flow Rate 4.0 Intake and Output 03/16/17 03/16/17 03/17/17 15:00 23:00 07:00 Intake Total 360 ml 420 ml 100 ml Output Total 600 ml 600 ml 600 ml Balance -240 ml -180 ml -500 ml AMAN SHAIKH MD March 17, 2017 15:46
[2017-03-17] MEDS: RIVAROXABAN 15 MG TABLET. PO SCH (17:13)
[2017-03-17 19:00] VITALS: BP 112/48
[2017-03-17] MEDS: CITALOPRAM 10 MG TABLET. PO SCH (20:36)
[2017-03-17 23:24] VITALS: BP 143/60
[2017-03-18 03:22] VITALS: BP 111/53
[2017-03-18] MEDS: LEVOTHYROXINE 25 MCG TABLET. PO SCH (05:46)
[2017-03-18 07:00] VITALS: BP 107/46
[2017-03-18] MEDS: INSULIN ASPART 300 UNITS/3 ML INSULN.PEN SQ SCH ×7 (07:30→17:32)
[2017-03-18] MEDS: MUPIROCIN 2 % NASAL OINTMENT 22GM TUBE. NS SCH (07:55)
[2017-03-18] MEDS: INSULIN DETEMIR 300 UNITS/3 ML INSULN.PEN. SQ SCH ×2 (08:00→17:32)
[2017-03-18] MEDS: FUROSEMIDE 40 MG TABLET. PO SCH (09:48)
[2017-03-18] MEDS: CYANOCOBALAMIN (VITAMIN B-12) 1,000 MCG TABLET. PO SCH (09:48)
[2017-03-18] MEDS: OMEGA-3 FATTY ACIDS/FISH OIL 1,000 MG CAPSULE. PO SCH (09:48)
[2017-03-18] MEDS: ALLOPURINOL 100 MG TABLET. PO SCH (09:48)
[2017-03-18] MEDS: GABAPENTIN 300 MG CAPSULE. PO SCH (09:48)
[2017-03-18] MEDS: EZETIMIBE 10 MG TABLET. PO SCH (09:49)
[2017-03-18] MEDS: SIMVASTATIN 20 MG TABLET PO SCH (09:49)
[2017-03-18] MEDS: ANTI-COAG MONITOR BY PHARMACY. MC PRN (10:26)
--- NOTE | 2017-03-18 10:32 | RAD ---
APPROVED REPORT Test Type: Pharmacological Stress Nurse/Tech: dioni damon Test Indications: chest pain Cardiac History: CAD, SEE EHR Medications: SEE EHR Medical History: CKD,SMOKER,DIABETES, SEE US Resting ECG: SR Resting Heart Rate: 74 bpm Resting Blood Pressure: 133/53mmHg Pretest Chest Pain: No chest pain Nurse/Tech Notes LUNG SOUNDS CLEAR, S1S2 WNL. Consent: The procedure was explained to the patient in lay terms. Informed consent was witnessed. Osmany eout was entered into [employer] History and Stress Test performed by DIONI DAMON Pharm. Details Pharmacologic stress testing was performed using 0.4mg per 5ml of regadenoson given intravenously ove r 7-10 seconds. Stress Symptoms NONE STATED POST EXERCISE Reason for Termination: Infusion complete Max HR: 97 bpm Max Blood Pressure: 144/43mmHg Chest Pain: No. Arrhythmia: No. ST Change: No. INTERPRETATION Stress EKG Conclusion: No evidence of stress induced EKG changes. Imaging Protocol IMAGE PROTOCOL: Rest Tc-99m/stress Tc-99m 2 days Rest: Stress: Viability: Radiopharm.Tc99m [id number] Sestamibi [id number] 33.3mCi Duration 15min. 15min. Img Date 03/18/2017 03/17/2017 Inj-Img [id number]. 60min. Stress Admin Site: IV - Right AntecubitalAdministrator: Gautam Sauceda, RT (R)(N) STRESS DATA End Diast. Vol.84.5mlAv. Heart Rate89.0bpm End Syst. Vol.14.0mlCO Index BSA3.0L/min Myocardial Psid239.0gEject. Qtukzgwt47.5% Stress Rates Pk. Fill Rate3.98EDV/secLVtime Pk. Fill 175.56msec Pk. Empty Rate4.51ESV/secLVtime Pk. Uczpo016.64msec 11/12 Pk. Fill1.63EDV/sec Stress Scores Regional WT0.50Summed WT1.50 Regional WM0.00Summed WM0.00 The rest and stress images show normal perfusion, normal contraction and thickening. LV Perfusion Diaphragmatic attenuation artifact noted. LV Perf. Quant 17 Seg. SSS4.00 17 Seg. SRS1.00 17 Seg. SDS4.00 Stress Defect Extent (% LAD)0.00Rest Defect Extent (% LAD)0.00Rev. Defect Extent (% LAD)0.00 Stress Defect Extent (% LCX) 6.25Rest Defect Extent (% LCX)1.30Rev. Defect Extent (% LCX)3.15 Stress Defect Extent (% RCA)12.20Rest Defect Extent (% RCA)4.40Rev. Defect Extent (% RCA)8.90 Stress Defect Extent (% CAROLINE)6.50Rest Defect Extent (% CAROLINE)2.40Rev. Defect Extent (% CAROLINE)3.50 Other Information Quality:Average Risk Assessment: Low Risk Conclusion 1. No evidence of stress induced EKG changes. 2. Normal perfusion at stress/rest. 3. Low risk study. EF > 70% 4. Diaphragmatic attenuation artifact noted.
[2017-03-18 10:35] LABS: CALCIUM 9.3 mg/dL (8.5-10.1); CREATININE 1.7 mg/dL (0.6-1.0); POTASSIUM 4.4 mmol/L (3.5-5.1)
[2017-03-18 11:00] VITALS: BP 107/43
[2017-03-18 15:00] VITALS: BP 116/47
[2017-03-18] MEDS ORDERED: GABA800T2 PO (17:04)
[2017-03-18] MEDS ORDERED: FURO-69 PO (17:04)
[2017-03-18] MEDS: RIVAROXABAN 15 MG TABLET. PO SCH (17:07)
--- NOTE | 2017-03-18 17:13 | PDOC ---
Provider Note Provider Note discharge dictated # [id number] AMAN SHAIKH MD March 18, 2017 17:13
--- NOTE | 2017-03-18 23:55 | DS ---
DATE OF DISCHARGE: 03/18/2017 ADMISSION DIAGNOSIS: Chest pain. DISCHARGE DIAGNOSIS: Chest pain non-cardiac most likely musculoskeletal. ASSOCIATED DIAGNOSES: Hypertension, hyperlipidemia, type 2 diabetes with hyperglycemia, hypothyroidism, diabetic peripheral neuropathy, and chronic kidney disease stage 3. CONSULTS: Cardiology. PROCEDURE: Stress MPI. HISTORY AND HOSPITAL COURSE: This is a 66-year-old white female with the above chronic problems who developed acute left-sided chest pain. By the time she got to the Emergency Room, it pretty much resolved. She did have some chest wall tenderness that was also noted along with it. She also had some pain in her biceps muscles and she has been using her arms to help pull herself up with railing up her 12 or 16 steps that she has to get into her building. She has been receiving home health since a prior hospital stay for gout caused her to be nonambulatory. She is still recovering her strength from that having spent several weeks at retirement before returning home. She is anticoagulated due to history of a DVT. She was seen in cardiac consultation and echo was done and unremarkable. Stress MPI was done, which took 2 days due to her size and is unremarkable. Her lab studies showed initially a normal CBC with the blood draw, she developed mild anemia, her INR was 2.1. Her blood sugars fluctuated, but today have been better controlled. Her creatinine is down to 1.7, BUN is at 46, so she is getting little too much diuretic at this point. Her creatinine on admission was 2.2. Urinalysis was negative for infection per micro and culture. IMAGING STUDIES: Her nuclear medicine scan showed no evidence of stress induced EKG changes, normal perfusion at stress and rest, low risk study with an EF of greater than 70%. There was some diaphragmatic attenuation artifact noted. Abdominal pelvis CT imaging showed clear lung bases. Liver and spleen are unremarkable. Pancreas was normal ____, she is status post right nephrectomy. Left kidney appeared unremarkable with vascular calcification associated with left kidney. No renal calculi were seen. No hydronephrosis was seen. Degenerative changes were noted in the lumbar spine with spinal stenosis changes, acute abdominal series was also unremarkable. She will be discharged home. DISCHARGE MEDICATIONS: Lasix decreased from 40 mg to 20 mg, gabapentin increased from 600 to 800 t.i.d. She will continue Tylenol p.r.n. 650 b.i.d., allopurinol 100 mg daily, citalopram 10 mg at bedtime, B12 1000 mcg daily, generic Vytorin 10-20 one daily, NovoLog insulin 15 units at breakfast, lunch, 20 units with dinner, Lantus 50 units subq b.i.d., levothyroxine 25 mcg daily, lisinopril 10 mg b.i.d., omega-3 fish oil 300 mg daily and Xarelto 15 mg daily. DIET: Her diet will be diabetic, cardiac, renal. ACTIVITY: She will continue her home health through home. She will follow up with me in the office in a week or two and with Cardiology as her discretion. W Mary SHAIKH MD DR: GLORIA/sarkis JOB#: [id number] / [id number]
== END 2017-03-18 18:15 | disposition home health service (06) | DRG 206 ==
LOC: ER 06:57 → OBSVTOIN 11:45 → 4 NORTH 11:45
PROVIDERS: ADMIT Family Medicine; ATTEND Family Medicine
DX: M94.0 Chondrocostal junction syndrome [Tietze] (principal); I13.0 Hypertensive heart and chronic kidney disease with heart failure and stage 1 through stage 4 chronic kidney disease, or unspecified chronic kidney disease; I50.32 Chronic diastolic (congestive) heart failure; N18.4 Chronic kidney disease, stage 4 (severe); D25.9 Leiomyoma of uterus, unspecified; D64.9 Anemia, unspecified; E03.9 Hypothyroidism, unspecified; E11.22 Type 2 diabetes mellitus with diabetic chronic kidney disease; E11.42 Type 2 diabetes mellitus with diabetic polyneuropathy; E11.65 Type 2 diabetes mellitus with hyperglycemia; E66.01 Morbid (severe) obesity due to excess calories; E78.5 Hyperlipidemia, unspecified; I87.8 Other specified disorders of veins; M10.00 Idiopathic gout, unspecified site; M48.06 Spinal stenosis, lumbar region; Z86.718 Personal history of other venous thrombosis and embolism; F32.9 Major depressive disorder, single episode, unspecified; Z90.49 Acquired absence of other specified parts of digestive tract; Z82.49 Family history of ischemic heart disease and other diseases of the circulatory system
CPT/HCPCS: 36415; 74022; 74176; 78452; 80048; 80061; 80076; 81001; 82553; 82947; 83690; 83735; 83880; 84484; 85027; 85610; 87086; 93005; 93017; 93306; 96374; 96375; 96376; A9500; J1815; J2270; J2785; J7030; J7512; Q9966

== ENCOUNTER 2017-07-13 12:36 | Emergency (ER) | payer MEDICARE, MEDICAID ==
[~2017-07-13] VITALS: Ht 160 cm; Wt 113.4 kg
[~2017-07-13 12:36] MED LIST changes: +ALLO100T PO; +CYAN10005 PO; +EZET1TAB30 PO; -EZET1TAB4 PO; +FURO-69 PO; +GABA800T2 PO; +LOPE2CAP3 PO; +OMEG300C PO
--- NOTE | 2017-07-13 13:02 | PHYS DOC ---
Past Medical History Past Medical History: CHF, Depression, Diabetes-Type II, Hypertension, Hypothyroid, Other Additional Past Medical Histor: NEUROPATHY, GOUT Past Surgical History: Cholecystectomy, Other Additional Past Surgical Histo: R nephrectomy Alcohol Use: None Drug Use: None Adult General Chief Complaint Chief Complaint: LOWER EXT PAIN HPI HPI Patient is a 66 year old female who presents with lower extremity swelling that started yesterday. According to the patient she's had this on and off the last several months perhaps years however yesterday she developed a fever as high as 101. She does take Tylenol nightly and hasn't taken anything since last night. She denies any nausea vomiting fevers chills. She states it does hurt when she tries to ambulate, however is getting around the house fine. She presents with a 2 sisters. Review of Systems Review of Systems Constitutional: Denies fever or chills [] Eyes: Denies change in visual acuity, redness, or eye pain [] HENT: Denies nasal congestion or sore throat [] Respiratory: Denies cough or shortness of breath [] Cardiovascular: No additional information not addressed in HPI [] GI: Denies abdominal pain, nausea, vomiting, bloody stools or diarrhea [] : Denies dysuria or hematuria [] Musculoskeletal: Denies back pain or joint pain [] Integument: Denies rash or skin lesions [] Neurologic: Denies headache, focal weakness or sensory changes [] Endocrine: Denies polyuria or polydipsia [] Current Medications Current Medications Current Medications Medications (Trade) Dose Ordered Sig/Kenroy Start Time Stop Time Status Last Admin Dose Admin Clindamycin HCl (Cleocin) 300 mg 1X ONCE 07/13/17 14:45 07/13/17 14:46 DC 07/13/17 14:56 300 MG Allergies Allergies Allergies Coded Allergies Type Severity Reaction Last Updated Verified castor oil Allergy Intermediate rash 01/17/17 Yes Physical Exam Physical Exam Constitutional: Well developed, well nourished, no acute distress, non-toxic appearance. [] HENT: Normocephalic, atraumatic, bilateral external ears normal, oropharynx moist, no oral exudates, nose normal. [] Eyes: PERRLA, EOMI, conjunctiva normal, no discharge. [] Neck: Normal range of motion, no tenderness, supple, no stridor. [] Cardiovascular:Heart rate regular rhythm, no murmur [] Lungs & Thorax: Bilateral breath sounds clear to auscultation [] Abdomen: Bowel sounds normal, soft, no tenderness, no masses, no pulsatile masses. [] Skin: Warm, dry, no erythema, no rash. [] Back: No tenderness, no CVA tenderness. [] Extremities: Tender to palpation with erythema surrounding the right calf with some splotchy type lesions extending up the right medial thigh, no lymphangitis appreciated, 2+ pitting edema with the right lower extremity, no cyanosis, no clubbing, ROM intact, no edema on the left lower extremity. [] Neurologic: Alert and oriented X 3, normal motor function, normal sensory function, no focal deficits noted. [] Psychologic: Affect normal, judgement normal, mood normal. [] Current Patient Data Vital Signs Vital Signs Date Time Temp Pulse Resp B/P (MAP) Pulse Ox O2 Delivery O2 Flow Rate FiO2 07/13/17 13:11 98.4 76 18 144/78 (100) 94 Room Air 98.4 Lab Values Laboratory Tests Test 07/13/17 13:30 07/13/17 14:10 White Blood Count 6.7 x10^3/uL (4.0-11.0) Red Blood Count 4.28 x10^6/uL (3.50-5.40) Hemoglobin 13.1 g/dL (12.0-15.5) Hematocrit 40.3 % (36.0-47.0) Mean Corpuscular Volume 94 fL (79-100) Mean Corpuscular Hemoglobin 31 pg (25-35) Mean Corpuscular Hemoglobin Concent 33 g/dL (31-37) Red Cell Distribution Width 13.7 % (11.5-14.5) Platelet Count 118 x10^3/uL (140-400) L Neutrophils (%) (Auto) 61 % (31-73) Lymphocytes (%) (Auto) 26 % (24-48) Monocytes (%) (Auto) 10 % (0-9) H Eosinophils (%) (Auto) 3 % (0-3) Basophils (%) (Auto) 1 % (0-3) Neutrophils # (Auto) 4.1 x10^3uL (1.8-7.7) Lymphocytes # (Auto) 1.7 x10^3/uL (1.0-4.8) Monocytes # (Auto) 0.7 x10^3/uL (0.0-1.1) Eosinophils # (Auto) 0.2 x10^3/uL (0.0-0.7) Basophils # (Auto) 0.1 x10^3/uL (0.0-0.2) Prothrombin Time 16.7 SEC (11.7-14.0) H Prothrombin Time INR 1.4 (0.8-1.1) H PTT 34 SEC (24-38) Sodium Level 143 mmol/L (136-145) Potassium Level 4.5 mmol/L (3.5-5.1) Chloride Level 107 mmol/L (98-107) Carbon Dioxide Level 30 mmol/L (21-32) Anion Gap 6 (6-14) Blood Urea Nitrogen 25 mg/dL (7-20) H Creatinine 1.6 mg/dL (0.6-1.0) H Estimated GFR (Cockcroft-Gault) 32.2 Glucose Level 77 mg/dL (70-99) Lactic Acid Level 0.7 mmol/L (0.4-2.0) Calcium Level 8.9 mg/dL (8.5-10.1) Total Bilirubin 0.4 mg/dL (0.2-1.0) Direct Bilirubin 0.1 mg/dL (0.0-0.2) Aspartate Amino Transferase (AST) 20 U/L (15-37) Alanine Aminotransferase (ALT) 23 U/L (14-59) Alkaline Phosphatase 76 U/L (46-116) Total Protein 6.9 g/dL (6.4-8.2) Albumin 3.0 g/dL (3.4-5.0) L Laboratory Tests 07/13/17 13:30 Laboratory Tests 07/13/17 14:10 EKG EKG EKG shows sinus rhythm [address] elevations, T-wave inversions noted in lead 3, normal axis, QTC 389 ms, as interpreted by me. Radiology/Procedures Radiology/Procedures [facility] [address] [place] [address] IMAGING REPORT Signed PATIENT: SILVERIO PETERSEN ACCOUNT: [id number] : 1950 LOCATION: ER AGE: 66 SEX: F EXAM STATUS: REG ER ORD. PHYSICIAN: LALO VERNON MD REASON: rt leg swelling PROCEDURE: VENOUS LOWER EXTREMITY RIGHT Examination: Ultrasound right lower extremity venous duplex. History: History of right leg swelling, cellulitis. Comparison: None available Technique: Grayscale, color Doppler 2-D, spectral waveform analysis of the right lower extremity venous system were performed Findings: The visualized common femoral vein, superficial femoral vein, popliteal vein demonstrate normal compression and augmentation of flow. The visualized calf veins are patent. Impression: No evidence of deep venous thrombosis right lower extremity. DICTATED and SIGNED BY: DORIAN STANTON MD DATE: 07/13/17 140 CC: LALO VERNON MD; Chad SHAIKH MD ~ Impressions: Right lower show any cellulitis Course & Med Decision Making Course & Med Decision Making Pertinent Labs and Imaging studies reviewed. (See chart for details) Ultrasound does not show a clot in the right lower show many. She states she's had this on and off for several months to a year. We will attempt to treat this outpatient since patient does not want to be admitted. She does not have a leukocytosis or fever and I think it's justifies trying outpatient clindamycin 300 mg every 8 for 10 days. She is instructed to follow-up with her primary care physician on Friday. Return precautions given. She is agreeable to plan of being discharged in stable condition this time. Dragon Disclaimer Dragon Disclaimer This electronic medical record was generated, in whole or in part, using a voice recognition dictation system. Departure Departure Impression: Primary Impression: Cellulitis Disposition: HOME, SELF-CARE Condition: STABLE Referrals: Chad SHAIKH MD (PCP) Patient Instructions: Cellulitis Additional Instructions: You have an infection of your right leg and wanted try to treat this at home with oral antibiotics for the next 10 days. You will need to call your primary care doctor on Friday and follow-up with him area if you develop extreme weakness, high fevers, uncontrolled nausea vomiting, ear leg gets more swollen and more red and more painful or you have any other concerns please return back to emergency department. Scripts Clindamycin Hcl (CLINDAMYCIN HCL) 300 Mg Capsule 1 CAP PO TID, #30 CAP Prov: LALO VERNON MD 07/13/17 Problem Qualifiers Primary Impression: Cellulitis Site of cellulitis: extremity Site of cellulitis of extremity: lower extremity Laterality: right Qualified Codes: L03.115 - Cellulitis of right lower limb LALO VERNON MD Jul 13, 2017 13:02
[2017-07-13 13:11] VITALS: BP 144/78
[2017-07-13 13:47] LABS: BASO # 0.1 x10^3/uL (0.0-0.2); BASO % 1 % (0-3); EOS % 3 % (0-3); HEMATOCRIT 40.3 % (36.0-47.0); HEMOGLOBIN 13.1 g/dL (12.0-15.5); LYMPH # 1.7 x10^3/uL (1.0-4.8); LYMPH % 26 % (24-48); MEAN CORPUSCULAR HEMOGLOBIN 31 pg (25-35); MEAN CORPUSCULAR HGB CONC 33 g/dL (31-37); MEAN CORPUSCULAR VOLUME 94 fL (79-100); MONO % 10 % (0-9); NEUT % 61 % (31-73); PLATELET COUNT 118 x10^3/uL (140-400); RED BLOOD COUNT 4.28 x10^6/uL (3.50-5.40); RED CELL DISTRIBUTION WIDTH 13.7 % (11.5-14.5); WHITE BLOOD COUNT 6.7 x10^3/uL (4.0-11.0)
[2017-07-13 13:56] LABS: INR 1.4 (0.8-1.1); PROTHROMBIN TIME PATIENT 16.7 SEC (11.7-14.0)
--- NOTE | 2017-07-13 14:13 | RAD ---
Examination: Ultrasound right lower extremity venous duplex. History: History of right leg swelling, cellulitis. Comparison: None available Technique: Grayscale, color Doppler 2-D, spectral waveform analysis of the right lower extremity venous system were performed Findings: The visualized common femoral vein, superficial femoral vein, popliteal vein demonstrate normal compression and augmentation of flow. The visualized calf veins are patent. Impression: No evidence of deep venous thrombosis right lower extremity.
[2017-07-13 14:27] LABS: CALCIUM 8.9 mg/dL (8.5-10.1); CREATININE 1.6 mg/dL (0.6-1.0); GFR 32.2; POTASSIUM 4.5 mmol/L (3.5-5.1)
[2017-07-13 14:33] LABS: DIRECT BILIRUBIN 0.1 mg/dL (0.0-0.2); TOTAL BILIRUBIN 0.4 mg/dL (0.2-1.0); TOTAL PROTEIN 6.9 g/dL (6.4-8.2)
[2017-07-13] MEDS ORDERED: CLINDAMYCIN HCL 150 MG CAPSULE. PO ONE (14:45)
[2017-07-13] MEDS ORDERED: CLIN300C8 PO (14:47)
[2017-07-13 15:00] LABS: BILIRUBIN,URINE NEGATIVE (NEG); GLUCOSE,URINE NEGATIVE (NEG); NITRITE,URINE NEGATIVE (NEG); PH,URINE 5.5; PROTEIN,URINE NEGATIVE (NEG-TRACE); UROBILINOGEN,URINE 0.2 mg/dL (0.2 mg/dL)
[2017-07-13 15:19] LABS: BACTERIA,URINE FEW /HPF (0-FEW); RBC,URINE 0 /HPF (0-2); SQUAMOUS EPITHELIAL CELL,UR MOD /LPF; WBC,URINE OCC /HPF (0-4)
--- NOTE | 2017-07-13 15:57 | EKG ---
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
[2017-07-15] MEDS ORDERED: INSU100V13 SQ (00:45)
[2017-07-15] MEDS ORDERED: COLC0.6T34 PO (22:11)
[2017-07-16] MEDS ORDERED: INSU100I27 SQ (08:24)
== END 2017-07-13 15:10 | disposition home or self-care (01) ==
LOC: ER 12:36
DX: L03.115 Cellulitis of right lower limb (principal); E11.40 Type 2 diabetes mellitus with diabetic neuropathy, unspecified; I13.0 Hypertensive heart and chronic kidney disease with heart failure and stage 1 through stage 4 chronic kidney disease, or unspecified chronic kidney disease; I50.9 Heart failure, unspecified; E03.9 Hypothyroidism, unspecified; M10.9 Gout, unspecified; Z90.49 Acquired absence of other specified parts of digestive tract; Z98.890 Other specified postprocedural states; Z88.8 Allergy status to other drugs, medicaments and biological substances
CPT/HCPCS: 87086; 87205; 99285; P9612; 36415; 80048; 80076; 81001; 83605; 85025; 85610; 85730; 87040; 93005; 93971

== ENCOUNTER → 2018-01-08 | Outpatient (CLI) | payer MEDICARE, MEDICAID | END | disposition home or self-care (01) | LOC: PMGWOUND 11:48 | DX: E11.622 Type 2 diabetes mellitus with other skin ulcer (principal); L97.211 Non-pressure chronic ulcer of right calf limited to breakdown of skin; I87.311 Chronic venous hypertension (idiopathic) with ulcer of right lower extremity; E11.22 Type 2 diabetes mellitus with diabetic chronic kidney disease; I13.0 Hypertensive heart and chronic kidney disease with heart failure and stage 1 through stage 4 chronic kidney disease, or unspecified chronic kidney disease; N18.3 Chronic kidney disease, stage 3 (moderate); I50.30 Unspecified diastolic (congestive) heart failure; J44.9 Chronic obstructive pulmonary disease, unspecified; E66.01 Morbid (severe) obesity due to excess calories; E78.5 Hyperlipidemia, unspecified; M19.90 Unspecified osteoarthritis, unspecified site; E11.42 Type 2 diabetes mellitus with diabetic polyneuropathy; E78.00 Pure hypercholesterolemia, unspecified; F32.9 Major depressive disorder, single episode, unspecified; E03.9 Hypothyroidism, unspecified; Z90.5 Acquired absence of kidney; Z86.718 Personal history of other venous thrombosis and embolism; Z68.41 Body mass index [BMI] 40.0-44.9, adult; Z87.891 Personal history of nicotine dependence; Z79.4 Long term (current) use of insulin | CPT/HCPCS: 99215 ==

== ENCOUNTER → 2018-01-12 | Outpatient (CLI) | payer MEDICARE, MEDICAID | END | disposition home or self-care (01) | LOC: PMGWOUND 12:50 | DX: E11.622 Type 2 diabetes mellitus with other skin ulcer (principal); L97.211 Non-pressure chronic ulcer of right calf limited to breakdown of skin; I87.311 Chronic venous hypertension (idiopathic) with ulcer of right lower extremity; E11.22 Type 2 diabetes mellitus with diabetic chronic kidney disease; I13.0 Hypertensive heart and chronic kidney disease with heart failure and stage 1 through stage 4 chronic kidney disease, or unspecified chronic kidney disease; N18.3 Chronic kidney disease, stage 3 (moderate); I50.30 Unspecified diastolic (congestive) heart failure; J44.9 Chronic obstructive pulmonary disease, unspecified; E66.01 Morbid (severe) obesity due to excess calories; E78.5 Hyperlipidemia, unspecified; M19.90 Unspecified osteoarthritis, unspecified site; E11.42 Type 2 diabetes mellitus with diabetic polyneuropathy; E78.00 Pure hypercholesterolemia, unspecified; F32.9 Major depressive disorder, single episode, unspecified; E03.9 Hypothyroidism, unspecified; Z90.5 Acquired absence of kidney; Z86.718 Personal history of other venous thrombosis and embolism; Z68.41 Body mass index [BMI] 40.0-44.9, adult; Z87.891 Personal history of nicotine dependence; Z79.4 Long term (current) use of insulin | CPT/HCPCS: 99213 ==

== ENCOUNTER → 2018-01-15 | Outpatient (CLI) | payer MEDICARE, MEDICAID | END | disposition home or self-care (01) | LOC: PMGWOUND 11:35 | DX: E11.622 Type 2 diabetes mellitus with other skin ulcer (principal); L97.211 Non-pressure chronic ulcer of right calf limited to breakdown of skin; I87.311 Chronic venous hypertension (idiopathic) with ulcer of right lower extremity; E11.22 Type 2 diabetes mellitus with diabetic chronic kidney disease; I13.0 Hypertensive heart and chronic kidney disease with heart failure and stage 1 through stage 4 chronic kidney disease, or unspecified chronic kidney disease; N18.3 Chronic kidney disease, stage 3 (moderate); I50.30 Unspecified diastolic (congestive) heart failure; J44.9 Chronic obstructive pulmonary disease, unspecified; E66.01 Morbid (severe) obesity due to excess calories; E78.5 Hyperlipidemia, unspecified; M19.90 Unspecified osteoarthritis, unspecified site; E11.42 Type 2 diabetes mellitus with diabetic polyneuropathy; E78.00 Pure hypercholesterolemia, unspecified; F32.9 Major depressive disorder, single episode, unspecified; E03.9 Hypothyroidism, unspecified; Z90.5 Acquired absence of kidney; Z86.718 Personal history of other venous thrombosis and embolism; Z68.41 Body mass index [BMI] 40.0-44.9, adult; Z87.891 Personal history of nicotine dependence; Z79.4 Long term (current) use of insulin | CPT/HCPCS: 99214 ==

== ENCOUNTER → 2018-03-12 | Outpatient (CLI) | payer MEDICARE, MEDICAID | END | disposition home or self-care (01) | LOC: PMGWOUND 11:24 | DX: I87.311 Chronic venous hypertension (idiopathic) with ulcer of right lower extremity (principal); E11.622 Type 2 diabetes mellitus with other skin ulcer; L97.211 Non-pressure chronic ulcer of right calf limited to breakdown of skin; J44.9 Chronic obstructive pulmonary disease, unspecified; E11.22 Type 2 diabetes mellitus with diabetic chronic kidney disease; I13.0 Hypertensive heart and chronic kidney disease with heart failure and stage 1 through stage 4 chronic kidney disease, or unspecified chronic kidney disease; I50.30 Unspecified diastolic (congestive) heart failure; N18.3 Chronic kidney disease, stage 3 (moderate); E78.5 Hyperlipidemia, unspecified; E03.9 Hypothyroidism, unspecified; F32.9 Major depressive disorder, single episode, unspecified; E66.01 Morbid (severe) obesity due to excess calories; E78.00 Pure hypercholesterolemia, unspecified; M19.90 Unspecified osteoarthritis, unspecified site; E11.42 Type 2 diabetes mellitus with diabetic polyneuropathy; Z86.718 Personal history of other venous thrombosis and embolism; Z87.891 Personal history of nicotine dependence; Z79.4 Long term (current) use of insulin | CPT/HCPCS: 99214 ==

== ENCOUNTER → 2018-03-16 | Outpatient (CLI) | payer MEDICARE, MEDICAID | END | disposition home or self-care (01) | LOC: PMGWOUND 12:44 | DX: I87.311 Chronic venous hypertension (idiopathic) with ulcer of right lower extremity (principal); E11.622 Type 2 diabetes mellitus with other skin ulcer; L97.211 Non-pressure chronic ulcer of right calf limited to breakdown of skin; E11.22 Type 2 diabetes mellitus with diabetic chronic kidney disease; I13.0 Hypertensive heart and chronic kidney disease with heart failure and stage 1 through stage 4 chronic kidney disease, or unspecified chronic kidney disease; N18.3 Chronic kidney disease, stage 3 (moderate); I50.30 Unspecified diastolic (congestive) heart failure; E78.5 Hyperlipidemia, unspecified; E03.9 Hypothyroidism, unspecified; F32.9 Major depressive disorder, single episode, unspecified; E66.01 Morbid (severe) obesity due to excess calories; E78.00 Pure hypercholesterolemia, unspecified; E11.42 Type 2 diabetes mellitus with diabetic polyneuropathy; M19.90 Unspecified osteoarthritis, unspecified site; Z87.891 Personal history of nicotine dependence; Z86.718 Personal history of other venous thrombosis and embolism; Z79.4 Long term (current) use of insulin | CPT/HCPCS: 29581 ==

== ENCOUNTER → 2018-03-19 | Outpatient (CLI) | payer MEDICARE, MEDICAID | END | disposition home or self-care (01) | LOC: PMGWOUND 08:47 | DX: I87.311 Chronic venous hypertension (idiopathic) with ulcer of right lower extremity (principal); E11.622 Type 2 diabetes mellitus with other skin ulcer; L97.211 Non-pressure chronic ulcer of right calf limited to breakdown of skin; E78.5 Hyperlipidemia, unspecified; E03.9 Hypothyroidism, unspecified; E11.22 Type 2 diabetes mellitus with diabetic chronic kidney disease; I13.0 Hypertensive heart and chronic kidney disease with heart failure and stage 1 through stage 4 chronic kidney disease, or unspecified chronic kidney disease; I50.30 Unspecified diastolic (congestive) heart failure; N18.3 Chronic kidney disease, stage 3 (moderate); F32.9 Major depressive disorder, single episode, unspecified; E66.01 Morbid (severe) obesity due to excess calories; E78.00 Pure hypercholesterolemia, unspecified; E11.42 Type 2 diabetes mellitus with diabetic polyneuropathy; M19.90 Unspecified osteoarthritis, unspecified site; J44.9 Chronic obstructive pulmonary disease, unspecified; Z86.718 Personal history of other venous thrombosis and embolism; Z87.891 Personal history of nicotine dependence; Z79.4 Long term (current) use of insulin | CPT/HCPCS: 99214 ==

== ENCOUNTER 2018-06-11 13:41 | Inpatient (IN) | payer MEDICARE, MEDICAID ==
[2018-06-11 14:46] LABS: ADD MAN DIFF? NO
[2018-06-11 14:49] LABS: BASO % 1 % (0-3); EOS # 0.2 x10^3/uL (0.0-0.7); EOS % 3 % (0-3); HEMATOCRIT 40.2 % (36.0-47.0); HEMOGLOBIN 13.5 g/dL (12.0-15.5); LYMPH # 1.2 x10^3/uL (1.0-4.8); LYMPH % 19 % (24-48); MEAN CORPUSCULAR HEMOGLOBIN 32 pg (25-35); MEAN CORPUSCULAR HGB CONC 34 g/dL (31-37); MEAN CORPUSCULAR VOLUME 95 fL (79-100); MONO # 0.5 x10^3/uL (0.0-1.1); MONO % 8 % (0-9); NEUT # 4.5 x10^3uL (1.8-7.7); NEUT % 70 % (31-73); PLATELET COUNT 121 x10^3/uL (140-400); RED BLOOD COUNT 4.26 x10^6/uL (3.50-5.40); RED CELL DISTRIBUTION WIDTH 13.8 % (11.5-14.5); WHITE BLOOD COUNT 6.4 x10^3/uL (4.0-11.0)
[2018-06-11 15:34] LABS: ANION GAP 9 (6-14); BLOOD UREA NITROGEN 33 mg/dL (7-20); CALCIUM 9.2 mg/dL (8.5-10.1); CARBON DIOXIDE 28 mmol/L (21-32); CHLORIDE 104 mmol/L (98-107); CREATININE 1.9 mg/dL (0.6-1.0); GFR 26.3; GLUCOSE 200 mg/dL (70-99); POTASSIUM 4.7 mmol/L (3.5-5.1); SODIUM 141 mmol/L (136-145)
[2018-06-11] MEDS ORDERED: VANCOMYCIN 1GM IVPB FOR OMNI 250 ML IV (16:45)
[2018-06-11] MEDS: VANCOMYCIN 2 GM in IV NORMAL SALINE 500ML BAG 500 ML IV (17:00)
[2018-06-12] MEDS ORDERED: DEXTROSE 50% 25 GM / 50ML DISP.SYRIN. IV (05:00)
[2018-06-12] MEDS ORDERED: PROCHLORPERAZINE 10 MG/2 ML VIAL. IV (05:15)
[2018-06-12] MEDS ORDERED: ACETAMINOPHEN 500 MG TABLET PO (07:45)
[2018-06-12] MEDS ORDERED: INSULIN LISPRO 300 UNITS/3 ML INSULN.PEN. SQ (08:00)
[2018-06-12 08:22] LABS: POC GLUCOSE 200 mg/dL (70-99)
[2018-06-12] MEDS: GABAPENTIN 400 MG CAPSULE. PO ×3 (09:16→21:02)
[2018-06-12] MEDS: LEVOTHYROXINE 25 MCG TABLET. PO (09:16)
[2018-06-12] MEDS: COLCHICINE 0.6 MG TABLET PO (09:16)
[2018-06-12] MEDS: RIVAROXABAN 15 MG TABLET. PO ×2 (09:16→18:09)
[2018-06-12] MEDS: LISINOPRIL 10 MG TABLET PO ×2 (09:17→21:03)
[2018-06-12] MEDS: EZETIMIBE 10 MG TABLET. PO (09:17)
[2018-06-12] MEDS: FUROSEMIDE 20 MG TABLET PO (09:18)
[2018-06-12] MEDS: CYANOCOBALAMIN (VITAMIN B-12) 1,000 MCG TABLET. PO (09:18)
[2018-06-12] MEDS: OMEGA-3 FATTY ACIDS/FISH OIL 1,000 MG CAPSULE. PO (09:18)
[2018-06-12] MEDS: ALLOPURINOL 100 MG TABLET. PO (09:18)
[2018-06-12] MEDS: VANCOMYCIN 2 GM in IV NORMAL SALINE 500ML BAG 500 ML IV (09:19)
[2018-06-12] MEDS: INSULIN LISPRO 300 UNITS/3 ML INSULN.PEN. SQ ×5 (09:23→18:15)
[2018-06-12 11:26] LABS: POC GLUCOSE 201 mg/dL (70-99)
[2018-06-12] MEDS: SIMVASTATIN 20 MG TABLET PO (12:28)
[2018-06-12] MEDS: VANCOMYCIN PER PHARMACY MC (15:46)
[2018-06-12] MEDS: ANTI-COAG MONITOR BY PHARMACY. MC (15:48)
[2018-06-12 17:25] LABS: POC GLUCOSE 206 mg/dL (70-99)
[2018-06-12 20:50] LABS: POC GLUCOSE 198 mg/dL (70-99)
[2018-06-12] MEDS: CITALOPRAM 10 MG TABLET. PO (21:02)
[2018-06-12] MEDS: INSULIN GLARGINE 300 UNITS/3 ML INSULN.PEN. SQ (21:08)
[2018-06-13] MEDS: LEVOTHYROXINE 25 MCG TABLET. PO (06:17)
[2018-06-13 07:23] LABS: GFR 37.4
[2018-06-13 07:23] LABS: CREATININE 1.4 mg/dL (0.6-1.0)
[2018-06-13 07:36] LABS: POC GLUCOSE 108 mg/dL (70-99)
[2018-06-13] MEDS: INSULIN LISPRO 300 UNITS/3 ML INSULN.PEN. SQ ×2 (08:00→09:23)
[2018-06-13] MEDS: EZETIMIBE 10 MG TABLET. PO (09:08)
[2018-06-13] MEDS: GABAPENTIN 400 MG CAPSULE. PO (09:08)
[2018-06-13] MEDS: OMEGA-3 FATTY ACIDS/FISH OIL 1,000 MG CAPSULE. PO (09:08)
[2018-06-13] MEDS: CYANOCOBALAMIN (VITAMIN B-12) 1,000 MCG TABLET. PO (09:08)
[2018-06-13] MEDS: ALLOPURINOL 100 MG TABLET. PO (09:09)
[2018-06-13] MEDS: SIMVASTATIN 20 MG TABLET PO (09:09)
[2018-06-13] MEDS: FUROSEMIDE 20 MG TABLET PO (09:09)
[2018-06-13] MEDS: LISINOPRIL 10 MG TABLET PO (09:09)
[2018-06-13] MEDS: COLCHICINE 0.6 MG TABLET PO (09:09)
[2018-06-13] MEDS ORDERED: VANCOMYCIN 1.75 GM in IV NORMAL SALINE 500ML BAG 500 ML IV (17:00)
== END 2018-06-13 12:07 | disposition home or self-care (01) | DRG 603 ==
LOC: ER 13:41 → 6 SOUTH 16:45
DX: L03.115 Cellulitis of right lower limb (principal); I13.0 Hypertensive heart and chronic kidney disease with heart failure and stage 1 through stage 4 chronic kidney disease, or unspecified chronic kidney disease; Z68.42 Body mass index [BMI] 45.0-49.9, adult; E78.00 Pure hypercholesterolemia, unspecified; F32.9 Major depressive disorder, single episode, unspecified; E66.01 Morbid (severe) obesity due to excess calories; I50.9 Heart failure, unspecified; M10.9 Gout, unspecified; E78.5 Hyperlipidemia, unspecified; E03.9 Hypothyroidism, unspecified; E11.42 Type 2 diabetes mellitus with diabetic polyneuropathy; N18.3 Chronic kidney disease, stage 3 (moderate); E11.22 Type 2 diabetes mellitus with diabetic chronic kidney disease; Z79.1 Long term (current) use of non-steroidal anti-inflammatories (NSAID); Z90.5 Acquired absence of kidney; Z90.49 Acquired absence of other specified parts of digestive tract; Z98.51 Tubal ligation status; Z88.8 Allergy status to other drugs, medicaments and biological substances; Z79.4 Long term (current) use of insulin; Z79.899 Other long term (current) drug therapy; Z87.891 Personal history of nicotine dependence; Z86.718 Personal history of other venous thrombosis and embolism; Z79.01 Long term (current) use of anticoagulants
CPT/HCPCS: 36415; 73552; 73562; 76882; 80048; 82565; 82962; 85025; 86850; 86900; 86901; 93971; 96365; 99285; 99285-25; J1815; J3370; J7040

== ENCOUNTER 2018-07-01 21:00 | Inpatient (IN) | payer MEDICARE, MEDICAID ==
[~2018-07-01] VITALS: Ht 160 cm; Wt 132.1 kg
[~2018-07-01 21:00] MED LIST changes: +CEPH-264 PO; +CLIN300C8 PO; +COLC0.6T34 PO; +INSU100I13 SQ; +INSU100I27 SQ; +INSU100V13 SQ
[2018-07-01] MEDS ORDERED: IV NORMAL SALINE 1000ML BAG 1,000 ML IV ONE ×2 (21:30→23:00)
[2018-07-01] MEDS ORDERED: ONDANSETRON PF 4 MG/2 ML VIAL. IV ONE (21:30)
--- NOTE | 2018-07-01 21:39 | PHYS DOC ---
Past Medical History Past Medical History: CHF, Depression, Diabetes-Type II, High Cholesterol, Hypertension, Hypothyroid, Other Additional Past Medical Histor: NEUROPATHY, GOUT Past Surgical History: Cholecystectomy, Tubal ligation, Other Additional Past Surgical Histo: R nephrectomy Alcohol Use: None Drug Use: None Adult General Chief Complaint Chief Complaint: NAUSEA/VOMITING/DIARRHA HPI HPI 67-year-old female presents to ER via POV for c/o N/V/D. On arrival to triage pt was actively vomiting and was found to have temperature of 103.2. Pt is shaky and reports she was recently in hospital for rt leg cellulitis and noticed that the redness on rt upper thigh started worsening in appearance today. Pt's 2 sisters are at bedside reporting pt had been fine all day and then had sudden onset of vomiting approx. 2 hrs FAMILY SPECIALIST to ER. They report they had gone out to eat and all ate similar food and neither one of them have sxs. Pt reports she finished her Keflex on Friday. She denies any CP, palpitations, or abd pain prior to onset of sxs 2 hrs ago. She reports she had been feeling good in the past several days. Review of Systems Review of Systems Constitutional: Reports chills/fever Eyes: Denies change in visual acuity, redness, or eye pain [] HENT: Denies nasal congestion or sore throat [] Respiratory: Denies cough or shortness of breath [] Cardiovascular: Denies CP/palpitations GI: Reports N/V/D- mild upper abd. pain with vomiting episodes : Denies dysuria or hematuria [] Musculoskeletal: Denies back pain or joint pain [] Integument: Reports rt upper/inner thigh redness/tenderness extending down leg by her knee into deluna area Neurologic: Denies headache, focal weakness or sensory changes [] Endocrine: Denies polyuria or polydipsia [] All other systems were reviewed and found to be within normal limits, except as documented in this note. Current Medications Current Medications Current Medications Medications (Trade) Dose Ordered Sig/Kenroy Start Time Stop Time Status Last Admin Dose Admin Acetaminophen (Tylenol) 650 mg 1X ONCE 07/01/18 22:15 07/01/18 22:16 DC Ondansetron HCl (Zofran) 4 mg 1X ONCE 07/01/18 21:30 07/01/18 21:31 DC 07/01/18 21:45 4 MG Piperacillin Sod/ Tazobactam Sod 3.375 gm/Sodium Chloride 50 ml @ 100 mls/hr 1X ONCE 07/01/18 21:45 07/01/18 22:14 DC 07/01/18 21:46 100 MLS/HR Sodium Chloride 1,000 ml @ 1,000 mls/hr 1X ONCE 07/01/18 21:30 07/01/18 22:29 DC 07/01/18 21:40 1,000 MLS/HR Vancomycin HCl (Vanco Per Pharmacy) 1 each PRN DAILY PRN 07/01/18 21:30 07/02/18 15:20 1 EACH Vancomycin HCl (Vancomycin Trough Level) 1 each 1X ONCE 07/01/18 22:00 07/01/18 23:17 DC Vancomycin HCl 2 gm/Sodium Chloride 500 ml @ 250 mls/hr 1X ONCE 07/01/18 22:00 07/01/18 23:59 DC 07/01/18 22:34 250 MLS/HR Allergies Allergies Allergies Coded Allergies Type Severity Reaction Last Updated Verified castor oil Allergy Intermediate rash 01/17/17 Yes Physical Exam Physical Exam Constitutional: Well developed, well nourished, non-toxic appearance- moderate distress on initial exam she is shaky and actively vomiting HENT: Normocephalic, atraumatic, bilateral ears normal, mucous membranes pale/ dry, nose normal. [] Eyes: PERRLA, conjunctiva normal, no discharge. [] Neck: Normal range of motion, no tenderness, supple, no stridor. [] Cardiovascular: Tachycardic heart rate/rhythm, no murmur [] Lungs & Thorax: Bilateral breath sounds clear to auscultation- diminished in bases. Resp. equal/nonlabored Abdomen: Bowel sounds normal, soft/obese- nondistended, no tenderness, no masses Skin: Warm, dry Back: No tenderness, no CVA tenderness. [] Extremities: Tender to palp. rt inner thigh to knee- erythema/warmth from mid rt anterior thigh extending to rt calf/deluna. 2+ dorsal/pedal pulse bilat. 1-2+ bilat. nonpitting edema. Lt LE NL exam with no erythema/warmth. Neurologic: Alert and oriented X 3, normal motor function, normal sensory function, no focal deficits noted. [] Psychologic: Affect normal, judgement normal, mood normal. [] Current Patient Data Vital Signs Vital Signs Date Time Temp Pulse Resp B/P (MAP) Pulse Ox O2 Delivery O2 Flow Rate FiO2 07/01/18 21:05 103.2 123 30 176/84 (114) 93 Room Air 103.2 Lab Values Laboratory Tests Test 07/01/18 21:40 07/01/18 21:45 07/01/18 22:15 White Blood Count 8.3 x10^3/uL (4.0-11.0) Red Blood Count 4.62 x10^6/uL (3.50-5.40) Hemoglobin 14.2 g/dL (12.0-15.5) Hematocrit 43.2 % (36.0-47.0) Mean Corpuscular Volume 94 fL (79-100) Mean Corpuscular Hemoglobin 31 pg (25-35) Mean Corpuscular Hemoglobin Concent 33 g/dL (31-37) Red Cell Distribution Width 13.6 % (11.5-14.5) Platelet Count 130 x10^3/uL (140-400) L Neutrophils (%) (Auto) 70 % (31-73) Lymphocytes (%) (Auto) 21 % (24-48) L Monocytes (%) (Auto) 6 % (0-9) Eosinophils (%) (Auto) 3 % (0-3) Basophils (%) (Auto) 0 % (0-3) Neutrophils # (Auto) 5.8 x10^3uL (1.8-7.7) Lymphocytes # (Auto) 1.7 x10^3/uL (1.0-4.8) Monocytes # (Auto) 0.5 x10^3/uL (0.0-1.1) Eosinophils # (Auto) 0.2 x10^3/uL (0.0-0.7) Basophils # (Auto) 0.0 x10^3/uL (0.0-0.2) Sodium Level 141 mmol/L (136-145) Potassium Level 5.4 mmol/L (3.5-5.1) H Chloride Level 104 mmol/L (98-107) Carbon Dioxide Level 28 mmol/L (21-32) Anion Gap 9 (6-14) Blood Urea Nitrogen 30 mg/dL (7-20) H Creatinine 1.5 mg/dL (0.6-1.0) H Estimated GFR (Cockcroft-Gault) 34.5 BUN/Creatinine Ratio 20 (6-20) Glucose Level 203 mg/dL (70-99) H Lactic Acid Level 2.8 mmol/L (0.4-2.0) H Calcium Level 9.3 mg/dL (8.5-10.1) Magnesium Level 1.7 mg/dL (1.8-2.4) L Total Bilirubin 0.4 mg/dL (0.2-1.0) Aspartate Amino Transferase (AST) 26 U/L (15-37) Alanine Aminotransferase (ALT) 26 U/L (14-59) Alkaline Phosphatase 132 U/L (46-116) H Creatine Kinase 176 U/L (26-192) Creatine Kinase MB (Mass) 1.0 ng/mL (0.0-3.6) Creatine Kinase MB Relative Index 0.6 % (0-4) Troponin I Quantitative < 0.017 ng/mL (0.000-0.055) EY-Nfu-W-Type Natriuretic Peptide 267 pg/mL (0-124) H Total Protein 7.2 g/dL (6.4-8.2) Albumin 3.5 g/dL (3.4-5.0) Albumin/Globulin Ratio 0.9 (1.0-1.7) L Lipase 191 U/L (73-393) Urine Collection Type U cath Urine Color Yellow Urine Clarity Clear Urine pH 5.5 Urine Specific [place] 1.015 Urine Protein 30 mg/dL (NEG-TRACE) Urine Glucose (UA) Negative mg/dL (NEG) Urine Ketones (Stick) Negative mg/dL (NEG) Urine Blood Small (NEG) Urine Nitrite Negative (NEG) Urine Bilirubin Negative (NEG) Urine Urobilinogen Dipstick 0.2 mg/dL (0.2 mg/dL) Urine Leukocyte Esterase Small (NEG) Urine RBC 1-2 /HPF (0-2) Urine WBC 5-10 /HPF (0-4) Urine Squamous Epithelial Cells Few /LPF Urine Bacteria Many /HPF (0-FEW) Prothrombin Time 15.3 SEC (11.7-14.0) H Prothrombin Time INR 1.3 (0.8-1.1) H PTT 24 SEC (24-38) Laboratory Tests 07/01/18 21:40 Laboratory Tests 07/01/18 21:40 Microbiology 07/01/18 Blood Culture - Final, Complete Microbiology 07/01/18 Blood Culture - Final, Complete EKG EKG EKG obtained 07/01/18 at [address] Coleman Sinus tachycardia ST & T wave abnorm. Vent rate 108 Radiology/Procedures Radiology/Procedures PROCEDURE: CHEST AP ONLY CLINICAL INDICATION: short of breath, fever COMPARISON: None FINDINGS: No pneumothorax identified. Cardiac and mediastinal contours unremarkable. No pulmonary consolidation or acute airspace disease. No acute osseous abnormalities identified. IMPRESSION: No pulmonary consolidation or acute airspace disease. Electronically signed by: Prem Pritchard DO (07/01/2018 11:33 PM) [facility] DICTATED and SIGNED BY: PREM PRITCHARD DO DATE: 07/01/18 0199 Course & Med Decision Making Course & Med Decision Making Pertinent Labs and Imaging studies reviewed. (See chart for details) 0: Following IV Zofran patient reports her nausea has subsided. Patient is less anxious and shaky and able to provide additional information on symptoms. Patient reports she had felt fine throughout the day and 2 hours prior to arrival to ER had sudden onset of nausea and vomiting. Patient reports her right upper thigh redness worsened throughout today and had been looking better following the Keflex antibiotic she was on after her discharge from hospital. Pt denies having any chest pain, palpitations, abdominal pain, or other symptoms prior to onset of nausea and vomiting. Discussed admission for sxs and pt is agreeable with this plan. IV vancomycin and zosyn were ordered. Discussed tylenol dose and with improved sxs will provide PO dose for fever. BP 146/67 HR 98- O2 sat on RA was 85-90% with pt denying any SOA. Placed on O2 via NC at 2L and O2 sat improved to 97-98%. RN use marking pen to outline erythema on rt lower extremity for admission/ further monitoring. Discussed test results with pt and her sisters- lactic acid was at 2.8; WBCs were NL at 8.3 with no left shift; EKG with no acute ST elevation/STEMI and troponin <0.017; glucose up at 203 with NL anion gap at 9; UA with 5-10 WBCs on micro with bacteria/squamous cells noted- probable contaminated specimen; chest xray with no acute findings . Admission was discussed again and pt remains agreeable with this for further care. Her sxs have improved and with txs/fluids received she appears less fatigued and nontoxic in appearance. Will call Dr. Alvarado (PCP) and discuss pt's case and admission plan. Pt's case and plan of care was discussed with Dr. Coleman. With pt having recent US of rt lower extremity during admission earlier this month repeat US was not obtained while in ER. Dragon Disclaimer Dragon Disclaimer This electronic medical record was generated, in whole or in part, using a voice recognition dictation system. Departure Departure Impression: Primary Impression: Cellulitis of right leg Additional Impressions: Fever Nausea & vomiting Disposition: ADMITTED INPATIENT Admitting Physician: David Alvarado (spoke with Dr. Ridley at 2233 via phone) Condition: STABLE Referrals: Chad ALVARADO MD (PCP) Problem Qualifiers MARU GOMES APRN Jul 01, 2018 21:39
[2018-07-01] MEDS ORDERED: PIPERACILLIN/TAZOBACTAM 3.375 GM in IV NORMAL SALINE 50ML 50 ML IV ONE (21:45)
[2018-07-01 21:53] LABS: BASO % 0 % (0-3); EOS # 0.2 x10^3/uL (0.0-0.7); EOS % 3 % (0-3); HEMATOCRIT 43.2 % (36.0-47.0); HEMOGLOBIN 14.2 g/dL (12.0-15.5); LYMPH # 1.7 x10^3/uL (1.0-4.8); LYMPH % 21 % (24-48); MEAN CORPUSCULAR HEMOGLOBIN 31 pg (25-35); MEAN CORPUSCULAR HGB CONC 33 g/dL (31-37); MEAN CORPUSCULAR VOLUME 94 fL (79-100); MONO # 0.5 x10^3/uL (0.0-1.1); MONO % 6 % (0-9); NEUT # 5.8 x10^3uL (1.8-7.7); NEUT % 70 % (31-73); PLATELET COUNT 130 x10^3/uL (140-400); RED BLOOD COUNT 4.62 x10^6/uL (3.50-5.40); RED CELL DISTRIBUTION WIDTH 13.6 % (11.5-14.5); WHITE BLOOD COUNT 8.3 x10^3/uL (4.0-11.0)
[2018-07-01] MEDS ORDERED: VANCOMYCIN 2 GM in IV NORMAL SALINE 500ML BAG 500 ML IV ONE (22:00)
[2018-07-01 22:02] LABS: BILIRUBIN,URINE NEGATIVE (NEG); CLARITY,URINE CLEAR; COLOR,URINE YELLOW; NITRITE,URINE NEGATIVE (NEG); PH,URINE 5.5; PROTEIN,URINE 30 mg/dL (NEG-TRACE); UROBILINOGEN,URINE 0.2 mg/dL (0.2 mg/dL)
[2018-07-01 22:04] LABS: CALCIUM 9.3 mg/dL (8.5-10.1); CREATININE 1.5 mg/dL (0.6-1.0); GFR 34.5; POTASSIUM 5.4 mmol/L (3.5-5.1)
[2018-07-01 22:09] LABS: BACTERIA,URINE MANY /HPF (0-FEW); SQUAMOUS EPITHELIAL CELL,UR FEW /LPF
[2018-07-01] MEDS ORDERED: ACETAMINOPHEN 325 MG TABLET. PO ONE (22:15)
[2018-07-01 22:17] LABS: ALBUMIN 3.5 g/dL (3.4-5.0); ALBUMIN/GLOBULIN RATIO 0.9 (1.0-1.7); MAGNESIUM 1.7 mg/dL (1.8-2.4); TOTAL BILIRUBIN 0.4 mg/dL (0.2-1.0); TOTAL PROTEIN 7.2 g/dL (6.4-8.2)
--- NOTE | 2018-07-01 22:25 | EKG ---
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
[2018-07-01 22:31] LABS: PROTHROMBIN TIME PATIENT 15.3 SEC (11.7-14.0)
[2018-07-01] MEDS ORDERED: ONDANSETRON PF 4 MG/2 ML VIAL. IV PRN (23:00)
[2018-07-01] MEDS: VANCOMYCIN PER PHARMACY MC PRN (23:24)
--- NOTE | 2018-07-01 23:36 | RAD ---
PROCEDURE: CHEST AP ONLY CLINICAL INDICATION: short of breath, fever COMPARISON: None FINDINGS: No pneumothorax identified. Cardiac and mediastinal contours unremarkable. No pulmonary consolidation or acute airspace disease. No acute osseous abnormalities identified. IMPRESSION: No pulmonary consolidation or acute airspace disease. Electronically signed by: Prem Pritchard DO (07/01/2018 11:33 PM) [facility]
[2018-07-02] VITALS (7 sets, daily range): BP systolic 91–157; BP diastolic 36–68
[2018-07-02 04:28] LABS: BASO % 0 % (0-3); EOS % 0 % (0-3); HEMATOCRIT 40.4 % (36.0-47.0); HEMOGLOBIN 13.5 g/dL (12.0-15.5); LYMPH # 1.1 x10^3/uL (1.0-4.8); LYMPH % 11 % (24-48); MEAN CORPUSCULAR HEMOGLOBIN 31 pg (25-35); MEAN CORPUSCULAR HGB CONC 33 g/dL (31-37); MEAN CORPUSCULAR VOLUME 94 fL (79-100); MONO # 0.6 x10^3/uL (0.0-1.1); MONO % 6 % (0-9); NEUT # 8.2 x10^3uL (1.8-7.7); NEUT % 82 % (31-73); PLATELET COUNT 113 x10^3/uL (140-400); RED BLOOD COUNT 4.28 x10^6/uL (3.50-5.40); RED CELL DISTRIBUTION WIDTH 13.6 % (11.5-14.5)
[2018-07-02 04:56] LABS: ALBUMIN/GLOBULIN RATIO 0.9 (1.0-1.7); CALCIUM 8.3 mg/dL (8.5-10.1); CREATININE 1.6 mg/dL (0.6-1.0); GFR 32.1; TOTAL BILIRUBIN 0.5 mg/dL (0.2-1.0); TOTAL PROTEIN 6.3 g/dL (6.4-8.2)
[2018-07-02 05:15] LABS: POTASSIUM 5.3 mmol/L (3.5-5.1)
[2018-07-02] MEDS ORDERED: DEXTROSE 50% 25 GM / 50ML DISP.SYRIN. IV PRN (08:45)
--- NOTE | 2018-07-02 08:58 | PDOC ---
PROGRESS NOTES Subjective Subjective Patient denies nausea or abdominal pain. Denies pain in right leg. Objective Objective Vital Signs Date Time Temp Pulse Resp B/P (MAP) Pulse Ox O2 Delivery O2 Flow Rate FiO2 07/02/18 07:54 99.8 92 22 154/58 (90) 90 Nasal Cannula 2.0 99.8 Intake and Output 07/02/18 07:00 Intake Total 1350 ml Output Total 575 ml Balance 775 ml Intake Oral 300 ml IV Total 1050 ml Output Urine Total 575 ml Physical Exam Abdomen: Normal bowel sounds, Soft, No tenderness Heart: Regular rate Extremities: Other (L LE with scant edema and stasis changes. R LE with erythema to thigh, not increased from ER markings at admission. Diffuse 1+ edema , skin intact) General: Alert, Oriented X3, No acute distress Lungs: Other (BS mildly decreased throughout but CTA) Assessment Assessment Problems Medical Problems: (1) Cellulitis of right leg Status: Acute (2) Fever Status: Acute (3) Nausea & vomiting Status: Acute Plan Plan of Care 1. Sepsis with cellulitis R LE - stable overnight, fever improving. Blood and urine cultures pending. Erythema of R LE has not worsened overnight. Continue Vancomycin and Zosyn. Check venous dopplers as patient does have hx of DVT. She reports she has been taking her Xarelto daily. 2. N/V - patient apparently had one episode of this in ER. Denies any problems with it at home, denies nausea presently and is hungry for breakfast. Zofran prn , diet as tolerated. Received IVF overnight, no further fluids presently indicated. 3. hyperkalemia - improved overnight. Office chart indicates patient takes K+ at home, although not on home med list on hospital chart. No supplement ordered , recheck lab in AM. 4. DM2 - continue insulins. 5. CKD III - stable on lab. 6. HTN - continue home medication. 7. Hx DVT - continue Xarelto daily, checking R LE venous dopplers as above. Comment Review of Relevant I have reviewed the following items minda (where applicable) has been applied. Labs Laboratory Tests Test 07/01/18 21:40 07/01/18 21:45 07/01/18 22:15 07/02/18 03:00 White Blood Count 8.3 x10^3/uL (4.0-11.0) 10.0 x10^3/uL (4.0-11.0) Red Blood Count 4.62 x10^6/uL (3.50-5.40) 4.28 x10^6/uL (3.50-5.40) Hemoglobin 14.2 g/dL (12.0-15.5) 13.5 g/dL (12.0-15.5) Hematocrit 43.2 % (36.0-47.0) 40.4 % (36.0-47.0) Mean Corpuscular Volume 94 fL (79-100) 94 fL (79-100) Mean Corpuscular Hemoglobin 31 pg (25-35) 31 pg (25-35) Mean Corpuscular Hemoglobin Concent 33 g/dL (31-37) 33 g/dL (31-37) Red Cell Distribution Width 13.6 % (11.5-14.5) 13.6 % (11.5-14.5) Platelet Count 130 x10^3/uL (140-400) 113 x10^3/uL (140-400) Neutrophils (%) (Auto) 70 % (31-73) 82 % (31-73) Lymphocytes (%) (Auto) 21 % (24-48) 11 % (24-48) Monocytes (%) (Auto) 6 % (0-9) 6 % (0-9) Eosinophils (%) (Auto) 3 % (0-3) 0 % (0-3) Basophils (%) (Auto) 0 % (0-3) 0 % (0-3) Neutrophils # (Auto) 5.8 x10^3uL (1.8-7.7) 8.2 x10^3uL (1.8-7.7) Lymphocytes # (Auto) 1.7 x10^3/uL (1.0-4.8) 1.1 x10^3/uL (1.0-4.8) Monocytes # (Auto) 0.5 x10^3/uL (0.0-1.1) 0.6 x10^3/uL (0.0-1.1) Eosinophils # (Auto) 0.2 x10^3/uL (0.0-0.7) 0.0 x10^3/uL (0.0-0.7) Basophils # (Auto) 0.0 x10^3/uL (0.0-0.2) 0.0 x10^3/uL (0.0-0.2) Sodium Level 141 mmol/L (136-145) 141 mmol/L (136-145) Potassium Level 5.4 mmol/L (3.5-5.1) 5.3 mmol/L (3.5-5.1) Chloride Level 104 mmol/L (98-107) 106 mmol/L (98-107) Carbon Dioxide Level 28 mmol/L (21-32) 30 mmol/L (21-32) Anion Gap 9 (6-14) 5 (6-14) Blood Urea Nitrogen 30 mg/dL (7-20) 28 mg/dL (7-20) Creatinine 1.5 mg/dL (0.6-1.0) 1.6 mg/dL (0.6-1.0) Estimated GFR (Cockcroft-Gault) 34.5 32.1 BUN/Creatinine Ratio 20 (6-20) 18 (6-20) Glucose Level 203 mg/dL (70-99) 228 mg/dL (70-99) Lactic Acid Level 2.8 mmol/L (0.4-2.0) Calcium Level 9.3 mg/dL (8.5-10.1) 8.3 mg/dL (8.5-10.1) Magnesium Level 1.7 mg/dL (1.8-2.4) Total Bilirubin 0.4 mg/dL (0.2-1.0) 0.5 mg/dL (0.2-1.0) Aspartate Amino Transf (AST/SGOT) 26 U/L (15-37) 19 U/L (15-37) Alanine Aminotransferase (ALT/SGPT) 26 U/L (14-59) 21 U/L (14-59) Alkaline Phosphatase 132 U/L (46-116) 90 U/L (46-116) Creatine Kinase 176 U/L (26-192) Creatine Kinase MB (Mass) 1.0 ng/mL (0.0-3.6) Creatine Kinase MB Relative Index 0.6 % (0-4) Troponin I Quantitative < 0.017 ng/mL (0.000-0.055) JW-Lxw-C-Type Natriuretic Peptide 267 pg/mL (0-124) Total Protein 7.2 g/dL (6.4-8.2) 6.3 g/dL (6.4-8.2) Albumin 3.5 g/dL (3.4-5.0) 3.0 g/dL (3.4-5.0) Albumin/Globulin Ratio 0.9 (1.0-1.7) 0.9 (1.0-1.7) Lipase 191 U/L (73-393) Urine Collection Type U cath Urine Color Yellow Urine Clarity Clear Urine pH 5.5 Urine Specific [place] 1.015 Urine Protein 30 mg/dL (NEG-TRACE) Urine Glucose (UA) Negative mg/dL (NEG) Urine Ketones (Stick) Negative mg/dL (NEG) Urine Blood Small (NEG) Urine Nitrite Negative (NEG) Urine Bilirubin Negative (NEG) Urine Urobilinogen Dipstick 0.2 mg/dL (0.2 mg/dL) Urine Leukocyte Esterase Small (NEG) Urine RBC 1-2 /HPF (0-2) Urine WBC 5-10 /HPF (0-4) Urine Squamous Epithelial Cells Few /LPF Urine Bacteria Many /HPF (0-FEW) Prothrombin Time 15.3 SEC (11.7-14.0) Prothromb Time International Ratio 1.3 (0.8-1.1) Activated Partial Thromboplast Time 24 SEC (24-38) Laboratory Tests Test 07/01/18 21:40 07/01/18 21:45 07/01/18 22:15 07/02/18 03:00 White Blood Count 8.3 x10^3/uL (4.0-11.0) 10.0 x10^3/uL (4.0-11.0) Red Blood Count 4.62 x10^6/uL (3.50-5.40) 4.28 x10^6/uL (3.50-5.40) Hemoglobin 14.2 g/dL (12.0-15.5) 13.5 g/dL (12.0-15.5) Hematocrit 43.2 % (36.0-47.0) 40.4 % (36.0-47.0) Mean Corpuscular Volume 94 fL (79-100) 94 fL (79-100) Mean Corpuscular Hemoglobin 31 pg (25-35) 31 pg (25-35) Mean Corpuscular Hemoglobin Concent 33 g/dL (31-37) 33 g/dL (31-37) Red Cell Distribution Width 13.6 % (11.5-14.5) 13.6 % (11.5-14.5) Platelet Count 130 x10^3/uL (140-400) 113 x10^3/uL (140-400) Neutrophils (%) (Auto) 70 % (31-73) 82 % (31-73) Lymphocytes (%) (Auto) 21 % (24-48) 11 % (24-48) Monocytes (%) (Auto) 6 % (0-9) 6 % (0-9) Eosinophils (%) (Auto) 3 % (0-3) 0 % (0-3) Basophils (%) (Auto) 0 % (0-3) 0 % (0-3) Neutrophils # (Auto) 5.8 x10^3uL (1.8-7.7) 8.2 x10^3uL (1.8-7.7) Lymphocytes # (Auto) 1.7 x10^3/uL (1.0-4.8) 1.1 x10^3/uL (1.0-4.8) Monocytes # (Auto) 0.5 x10^3/uL (0.0-1.1) 0.6 x10^3/uL (0.0-1.1) Eosinophils # (Auto) 0.2 x10^3/uL (0.0-0.7) 0.0 x10^3/uL (0.0-0.7) Basophils # (Auto) 0.0 x10^3/uL (0.0-0.2) 0.0 x10^3/uL (0.0-0.2) Sodium Level 141 mmol/L (136-145) 141 mmol/L (136-145) Potassium Level 5.4 mmol/L (3.5-5.1) 5.3 mmol/L (3.5-5.1) Chloride Level 104 mmol/L (98-107) 106 mmol/L (98-107) Carbon Dioxide Level 28 mmol/L (21-32) 30 mmol/L (21-32) Anion Gap 9 (6-14) 5 (6-14) Blood Urea Nitrogen 30 mg/dL (7-20) 28 mg/dL (7-20) Creatinine 1.5 mg/dL (0.6-1.0) 1.6 mg/dL (0.6-1.0) Estimated GFR (Cockcroft-Gault) 34.5 32.1 BUN/Creatinine Ratio 20 (6-20) 18 (6-20) Glucose Level 203 mg/dL (70-99) 228 mg/dL (70-99) Lactic Acid Level 2.8 mmol/L (0.4-2.0) Calcium Level 9.3 mg/dL (8.5-10.1) 8.3 mg/dL (8.5-10.1) Magnesium Level 1.7 mg/dL (1.8-2.4) Total Bilirubin 0.4 mg/dL (0.2-1.0) 0.5 mg/dL (0.2-1.0) Aspartate Amino Transf (AST/SGOT) 26 U/L (15-37) 19 U/L (15-37) Alanine Aminotransferase (ALT/SGPT) 26 U/L (14-59) 21 U/L (14-59) Alkaline Phosphatase 132 U/L (46-116) 90 U/L (46-116) Creatine Kinase 176 U/L (26-192) Creatine Kinase MB (Mass) 1.0 ng/mL (0.0-3.6) Creatine Kinase MB Relative Index 0.6 % (0-4) Troponin I Quantitative < 0.017 ng/mL (0.000-0.055) RT-Wtu-Q-Type Natriuretic Peptide 267 pg/mL (0-124) Total Protein 7.2 g/dL (6.4-8.2) 6.3 g/dL (6.4-8.2) Albumin 3.5 g/dL (3.4-5.0) 3.0 g/dL (3.4-5.0) Albumin/Globulin Ratio 0.9 (1.0-1.7) 0.9 (1.0-1.7) Lipase 191 U/L (73-393) Urine Collection Type U cath Urine Color Yellow Urine Clarity Clear Urine pH 5.5 Urine Specific [place] 1.015 Urine Protein 30 mg/dL (NEG-TRACE) Urine Glucose (UA) Negative mg/dL (NEG) Urine Ketones (Stick) Negative mg/dL (NEG) Urine Blood Small (NEG) Urine Nitrite Negative (NEG) Urine Bilirubin Negative (NEG) Urine Urobilinogen Dipstick 0.2 mg/dL (0.2 mg/dL) Urine Leukocyte Esterase Small (NEG) Urine RBC 1-2 /HPF (0-2) Urine WBC 5-10 /HPF (0-4) Urine Squamous Epithelial Cells Few /LPF Urine Bacteria Many /HPF (0-FEW) Prothrombin Time 15.3 SEC (11.7-14.0) Prothromb Time International Ratio 1.3 (0.8-1.1) Activated Partial Thromboplast Time 24 SEC (24-38) Medications Current Medications Sodium Chloride 1,000 ml @ 1,000 mls/hr 1X ONCE IV Last administered on at 21:40; Start 07/01/18 at 21:30; Stop 07/01/18 at 22:29; Status DC Ondansetron HCl (Zofran) 4 mg 1X ONCE IV Last administered on 07/01/18at 21:45 ; Start 07/01/18 at 21:30; Stop 07/01/18 at 21:31; Status DC Piperacillin Sod/ Tazobactam Sod 3.375 gm/Sodium Chloride 50 ml @ 100 mls/hr 1X ONCE IV Last administered on 07/01/18at 21:46; Start 07/01/18 at 21:45; Stop 07/01/18 at 22:14; Status DC Vancomycin HCl (Vanco Per Pharmacy) 1 each PRN DAILY PRN MC SEE COMMENTS Last administered on 07/01/18at 23:24; Start 07/01/18 at 21:30 Vancomycin HCl 2 gm/Sodium Chloride 500 ml @ 250 mls/hr 1X ONCE IV Last administered on 07/01/18at 22:34; Start 07/01/18 at 22:00; Stop 07/01/18 at 23:59 ; Status DC Acetaminophen (Tylenol) 650 mg 1X ONCE PO ; Start 07/01/18 at 22:15; Stop 07/01 at 22:16; Status DC Ondansetron HCl (Zofran) 4 mg PRN Q8HRS PRN IV NAUSEA/VOMITING; Start 07/01/18 at 23:00; Stop 07/02/18 at 22:59 Sodium Chloride 1,000 ml @ 1,000 mls/hr 1X ONCE IV Last administered on at 00:00; Start 07/01/18 at 23:00; Stop 07/01/18 at 23:59; Status DC Vancomycin HCl 1.75 gm/Sodium Chloride 500 ml @ 250 mls/hr Q24H IV ; Start at 22:30 Vancomycin HCl (Vancomycin Trough Level) 1 each 1X ONCE MC ; Start 07/01/18 at 22:00; Stop 07/01/18 at 23:17; Status DC Vancomycin HCl (Vancomycin Trough Level) 1 each 1X ONCE MC ; Start 07/03/18 at 22:00; Stop 07/03/18 at 22:01 Piperacillin Sod/ Tazobactam Sod 3.375 gm/Sodium Chloride 50 ml @ 100 mls/hr Q6HRS IV ; Start 07/02/18 at 12:00 Insulin Human Lispro (HumaLOG) 0-7 UNITS TIDWMEALS SQ ; Start 07/02/18 at 12:00 ; Status UNV Dextrose (Dextrose 50%-Water Syringe) 12.5 gm PRN Q15MIN PRN IV SEE COMMENTS; Start 07/02/18 at 08:45; Status UNV Active Scripts Active Gabapentin 800 Mg Tablet 800 Mg PO TID 30 Days Lasix (Furosemide) 20 Mg Tablet 1 Tab PO DAILY 30 Days Reported Novolog (Insulin Aspart) 100 Unit/1 Ml Vial 15 Unit SQ DAILYWBKFT Lantus Solostar (Insulin Glargine,Hum.rec.anlog) 100 Unit/1 Ml Insuln.pen 42 Unit SQ QHS Colcrys (Colchicine) 0.6 Mg Tablet 1 Tab PO DAILY Allopurinol 100 Mg Tablet 1 Tab PO DAILY Vitamin B-12 (Cyanocobalamin (Vitamin B-12)) 1,000 Mcg Tablet 1 Tab PO DAILY Fish Oil ([place]-3 Fatty Acids) 300 Mg Capsule 300 Mg PO DAILY Arthritis Pain Reliever (Acetaminophen) 650 Mg Tablet.er 650 Mg PO BID Novolog (Insulin Aspart) 100 Unit/1 Ml Vial 20 Unit SQ DAILYWSUP Lisinopril 10 Mg Tablet 1 Tab PO BID Xarelto (Rivaroxaban) 15 Mg Tablet 15 Mg PO DAILY Vytorin 10-20 Mg Tablet (Ezetimibe/Simvastatin) 1 Each Tablet 1 Tab PO DAILY Citalopram Hbr (Citalopram Hydrobromide) 10 Mg Tablet 1 Tab PO HS Levothyroxine Sodium 25 Mcg Tablet 1 Tab PO DAILY Vitals/I & O Vital Sign - Last 24 Hours 07/01/18 07/02/18 07/02/18 07/02/18 21:05 01:35 03:07 03:18 Temp 103.2 99.8 100.4 103.2 99.8 100.4 Pulse 123 86 102 Resp 30 20 20 B/P (MAP) 176/84 (114) 141/53 (82) 157/68 (97) Pulse Ox 93 96 97 O2 Delivery Room Air Nasal Cannula Nasal Cannula Nasal Cannula O2 Flow Rate 2.0 2.0 2.0 07/02/18 07:54 Temp 99.8 99.8 Pulse 92 Resp 22 B/P (MAP) 154/58 (90) Pulse Ox 90 O2 Delivery Nasal Cannula O2 Flow Rate 2.0 Intake and Output 07/01/18 07/01/18 07/02/18 15:00 23:00 07:00 Intake Total 1050 ml 300 ml Output Total 575 ml Balance 1050 ml -275 ml GRAEME MARCELINO MD Jul 02, 2018 08:58
[2018-07-02] MEDS: INSULIN LISPRO 300 UNITS/3 ML INSULN.PEN. SQ SCH ×5 (09:00→18:44)
--- NOTE | 2018-07-02 09:36 | RAD ---
Right lower extremity venous duplex study 07/02/2018 9:33 AM Clinical History: Right lower extremity edema Technique: Using a combination of real time ultrasound imaging and color-flow and pulse Doppler imaging techniques, including spectral analysis, graded compression and augmentation, duplex evaluation of the deep venous system of the right lower extremity was performed. Multiple images were obtained. Findings: There is no sonographic evidence of deep venous thrombosis involving the visualized deep venous structures of the right lower extremity Impression: No evidence of deep venous thrombosis involving the right lower extremity Electronically signed by: Naseem Delgado MD (07/02/2018 9:33 AM) [id number]
[2018-07-02] MEDS: ACETAMINOPHEN 325 MG TABLET. PO SCH ×2 (09:41→20:59)
[2018-07-02] MEDS: EZETIMIBE 10 MG TABLET. PO SCH (09:41)
[2018-07-02] MEDS: LISINOPRIL 10 MG TABLET PO SCH ×2 (09:42→20:59)
[2018-07-02] MEDS: SIMVASTATIN 20 MG TABLET PO SCH (09:42)
[2018-07-02] MEDS: CYANOCOBALAMIN (VITAMIN B-12) 1,000 MCG TABLET. PO SCH (09:42)
[2018-07-02] MEDS: COLCHICINE 0.6 MG TABLET PO SCH (09:43)
[2018-07-02] MEDS: GABAPENTIN 400 MG CAPSULE. PO SCH ×3 (09:43→20:58)
[2018-07-02] MEDS: FUROSEMIDE 20 MG TABLET PO SCH (09:43)
[2018-07-02] MEDS: LEVOTHYROXINE 25 MCG TABLET. PO SCH (09:43)
[2018-07-02] MEDS: OMEGA-3 FATTY ACIDS/FISH OIL 1,000 MG CAPSULE. PO SCH (09:44)
[2018-07-02] MEDS: ALLOPURINOL 100 MG TABLET. PO SCH (09:44)
--- NOTE | 2018-07-02 09:52 | HP ---
ADMIT DATE: 07/01/2018 CHIEF COMPLAINT: Fever. HISTORY OF PRESENT ILLNESS: The patient is a 67-year-old female who was recently discharged from [facility] after treatment for cellulitis of the right lower extremity. She reports that she had been doing okay at home and had completed the oral antibiotics on which she was discharged. She states that she had not felt ill on the day of admission and had gone to bed at her usual time. She states that her dog woke her up later in the evening. She then noticed that she felt febrile and was starting to have some nausea. She came to the Emergency Room where she had one episode of emesis and was found to have a temperature of 103.2. Initial evaluation showed her to have significant erythema in the right lower extremity. Blood and urine cultures were done. She was started on antibiotics and admitted for further care. PAST MEDICAL HISTORY: Cellulitis of the right lower extremity, recently treated as an inpatient. Congestive heart failure with diastolic dysfunction, history of DVT. Diabetes mellitus type 2, insulin-dependent. Depression, hyperlipidemia, hypertension, hypothyroidism, peripheral neuropathy, gout, chronic kidney disease stage 3, chronic venous insufficiency. 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 ALLERGIES: THE PATIENT IS ALLERGIC TO CASTOR OIL. HOME MEDICATIONS: Allopurinol 100 mg daily, citalopram 10 mg daily, colchicine 0.6 mg daily, Vytorin 10/20 one daily, Lasix 20 mg daily, gabapentin 800 mg t.i.d., NovoLog insulin 15 units with breakfast and 20 units with dinner, Lantus insulin 42 units at bedtime, levothyroxine 25 mcg daily, lisinopril 10 mg b.i.d., Xarelto 15 mg daily. FAMILY HISTORY: Noncontributory. SOCIAL HISTORY: The patient is . She lives with two of her sisters. She has a long smoking history, but quit smoking cigarettes years ago. She does not drink alcohol to excess. REVIEW OF SYSTEMS: The patient denies other episodes of fever. She denies chest pain. She denies cough or shortness of breath. She denies emesis at home last evening, and she denies any nausea or abdominal pain at this time. She denies diarrhea or constipation. She states that her right leg did not look unusually red to her yesterday during the day. She states she has been compliant with her medications, taking them daily including the Xarelto. PHYSICAL EXAMINATION: GENERAL: The patient is alert and oriented x 3, resting comfortably in bed in no acute distress. HEENT: PERRL, EOMI, sclerae clear. Oropharynx: Mucous membranes moist. The patient is edentulous. NECK: Supple, without lymphadenopathy. CHEST: Breath sounds mildly decreased throughout, but otherwise clear to auscultation. CARDIOVASCULAR: Regular rhythm without murmur. ABDOMEN: Soft, nontender, normoactive bowel sounds are present. EXTREMITIES: The left lower extremity has scant edema and venous stasis changes, but is without erythema. The right lower extremity has erythema almost to the groin. The area of erythema is not increased from the ER markings done at admission last night. There is diffuse 1+ pitting edema. SKIN: Intact. ASSESSMENT AND PLAN: 1. Cellulitis of the right lower extremity with sepsis. The patient has been stable overnight and her fever is improving. Blood and urine cultures are pending. The erythema on her right leg has not worsened overnight. We will continue vancomycin and Zosyn and await culture results. Venous Dopplers have been ordered as the patient does have a history of a deep venous thrombosis. 2. Nausea and vomiting. The patient apparently had only one episode of this in the Emergency Room last evening. She denies any nausea or abdominal pain presently and is hungry for breakfast. Zosyn is ordered p.r.n., and she may have diet as tolerated. She received IV fluids overnight, but no further fluids are presently indicated if she is able to take oral. 3. Hyperkalemia. The patient's potassium was elevated at 5.4 at admission. It is improved to 5.3 this morning. There is no potassium medication on her hospital chart, but it is listed on her office chart as a home medication. We will hold this and follow her lab. 4. Diabetes mellitus type 2. Continue insulins. 5. Chronic kidney disease stage 3. This is stable on lab. 6. Hypertension. Continue home medication. 7. History of deep venous thrombosis. Continue Xarelto daily, checking a right lower extremity venous Doppler as above. GRAEME MARCELINO MD DR: NIRANJAN/sarkis JOB#: [id number] / [id number] ROCKY
[2018-07-02] MEDS: PIPERACILLIN/TAZOBACTAM 3.375 GM in IV NORMAL SALINE 50ML 50 ML IV SCH ×2 (12:33→18:36)
[2018-07-02] MEDS: VANCOMYCIN PER PHARMACY MC PRN (15:20)
[2018-07-02] MEDS: ANTI-COAG MONITOR BY PHARMACY. MC PRN (15:52)
[2018-07-02] MEDS: RIVAROXABAN 15 MG TABLET. PO SCH (18:36)
[2018-07-02] MEDS: CITALOPRAM 10 MG TABLET. PO SCH (20:58)
[2018-07-02] MEDS: LACTOBACILLUS RHAMNOSUS GG 1 CAPSULE. PO SCH (20:58)
[2018-07-02] MEDS: INSULIN GLARGINE 300 UNITS/3 ML INSULN.PEN. SQ SCH (21:01)
[2018-07-02] MEDS: VANCOMYCIN 1.75 GM in IV NORMAL SALINE 500ML BAG 500 ML IV SCH (22:38)
[2018-07-03] MEDS: PIPERACILLIN/TAZOBACTAM 3.375 GM in IV NORMAL SALINE 50ML 50 ML IV SCH ×4 (00:25→20:16)
[2018-07-03 03:01] VITALS: BP 131/75
[2018-07-03] MEDS: LEVOTHYROXINE 25 MCG TABLET. PO SCH (05:50)
[2018-07-03 07:30] LABS: CALCIUM 8.8 mg/dL (8.5-10.1); GFR 24.8; POTASSIUM 4.6 mmol/L (3.5-5.1)
[2018-07-03 07:42] VITALS: BP 131/38
[2018-07-03] MEDS: ALLOPURINOL 100 MG TABLET. PO SCH (08:35)
[2018-07-03] MEDS: LACTOBACILLUS RHAMNOSUS GG 1 CAPSULE. PO SCH ×2 (08:36→20:16)
[2018-07-03] MEDS: OMEGA-3 FATTY ACIDS/FISH OIL 1,000 MG CAPSULE. PO SCH (08:36)
[2018-07-03] MEDS: LISINOPRIL 10 MG TABLET PO SCH ×2 (08:36→20:17)
[2018-07-03] MEDS: FUROSEMIDE 20 MG TABLET PO SCH (08:36)
[2018-07-03] MEDS: CYANOCOBALAMIN (VITAMIN B-12) 1,000 MCG TABLET. PO SCH (08:36)
[2018-07-03] MEDS: COLCHICINE 0.6 MG TABLET PO SCH (08:36)
[2018-07-03] MEDS: EZETIMIBE 10 MG TABLET. PO SCH (08:36)
[2018-07-03] MEDS: ACETAMINOPHEN 325 MG TABLET. PO SCH ×2 (08:37→20:17)
[2018-07-03] MEDS: SIMVASTATIN 20 MG TABLET PO SCH (08:37)
[2018-07-03] MEDS: GABAPENTIN 400 MG CAPSULE. PO SCH ×3 (08:37→20:17)
[2018-07-03] MEDS: INSULIN LISPRO 300 UNITS/3 ML INSULN.PEN. SQ SCH ×5 (08:42→17:33)
[2018-07-03 11:41] VITALS: BP 112/41
--- NOTE | 2018-07-03 12:56 | PDOC ---
PROGRESS NOTES Subjective Temp of 99.7 this am and felt hot, tolerating anabiotics, less intense redness or right leg noted Objective General: drowsy but awakens and alert, oriented Heart: RRR Lungs: CTA Abd: soft, obese, bowel sounds normal Ext: less intense erythema of right leg WBC: normal yesterday and at admission Creat: up to 2.0 from 1.6 Vital Signs Vital Signs Date Time Temp Pulse Resp B/P (MAP) Pulse Ox O2 Delivery O2 Flow Rate FiO2 07/03/18 11:41 98.7 81 20 112/41 (64) 92 Nasal Cannula 2.0 98.7 I & O Intake and Output 07/03/18 07:00 Intake Total 1050 ml Output Total 400 ml Balance 650 ml Intake Oral 850 ml IV Total 200 ml Output Urine Total 400 ml Assessment and Plan 1. Sepsis with cellulitis R LE - stable overnight, fever improving. Blood cx positive 1/4 bottles for G- rods and G+ cocci but urine cultures pending. Erythema of R LE is less intense. Continue Vancomycin and Zosyn. Venous dopplers negative, patient does have hx of DVT. She reports she has been taking her Xarelto daily. 2. N/V - resolve but may have been enough to raise her Cr. patient apparently had one episode of this in ER but none since. Denies any problems with it at home, eating well, has Zofran prn, diet as tolerated. Received IVF overnight initially, no further fluids presently indicated but will monitor. 3. hyperkalemia - resolved. Office chart indicates patient takes K+ at home, although not on home med list on hospital chart. No supplement ordered, recheck lab in AM. 4. DM2 - continue insulins, controlled. 5. CKD III - stable on lab. 6. HTN - continue home medication. 7. Hx DVT - continue Xarelto daily. Chad SHAIKH MD Jul 03, 2018 12:56
[2018-07-03] MEDS: VANCOMYCIN 1.75 GM in IV NORMAL SALINE 500ML BAG 500 ML IV SCH ×2 (15:47→23:05)
[2018-07-03 15:58] VITALS: BP 129/48
[2018-07-03] MEDS: VANCOMYCIN PER PHARMACY MC PRN ×2 (16:39→23:02)
[2018-07-03] MEDS: ANTI-COAG MONITOR BY PHARMACY. MC PRN (16:52)
[2018-07-03] MEDS: RIVAROXABAN 15 MG TABLET. PO SCH (17:27)
[2018-07-03 19:00] VITALS: BP 156/52
[2018-07-03] MEDS: CITALOPRAM 10 MG TABLET. PO SCH (20:18)
[2018-07-03] MEDS: INSULIN GLARGINE 300 UNITS/3 ML INSULN.PEN. SQ SCH (21:01)
[2018-07-03 22:42] LABS: VANC TR 14.1 mcg/mL (10.0-20.0)
[2018-07-03 23:00] VITALS: BP 115/44
[2018-07-04 03:02] VITALS: BP 140/54
[2018-07-04] MEDS: PIPERACILLIN/TAZOBACTAM 3.375 GM in IV NORMAL SALINE 50ML 50 ML IV SCH ×4 (03:25→16:48)
[2018-07-04 05:36] LABS: GFR 24.8
[2018-07-04 07:00] VITALS: BP 125/53
[2018-07-04] MEDS: LEVOTHYROXINE 25 MCG TABLET. PO SCH (07:00)
[2018-07-04] MEDS: INSULIN LISPRO 300 UNITS/3 ML INSULN.PEN. SQ SCH ×5 (08:00→17:29)
[2018-07-04] MEDS: LACTOBACILLUS RHAMNOSUS GG 1 CAPSULE. PO SCH ×2 (09:04→20:44)
[2018-07-04] MEDS: EZETIMIBE 10 MG TABLET. PO SCH (09:04)
[2018-07-04] MEDS: COLCHICINE 0.6 MG TABLET PO SCH (09:04)
[2018-07-04] MEDS: LISINOPRIL 10 MG TABLET PO SCH ×2 (09:05→20:44)
[2018-07-04] MEDS: CYANOCOBALAMIN (VITAMIN B-12) 1,000 MCG TABLET. PO SCH (09:05)
[2018-07-04] MEDS: OMEGA-3 FATTY ACIDS/FISH OIL 1,000 MG CAPSULE. PO SCH (09:05)
[2018-07-04] MEDS: SIMVASTATIN 20 MG TABLET PO SCH (09:05)
[2018-07-04] MEDS: ACETAMINOPHEN 325 MG TABLET. PO SCH ×2 (09:05→20:44)
[2018-07-04] MEDS: FUROSEMIDE 20 MG TABLET PO SCH (09:05)
[2018-07-04] MEDS: GABAPENTIN 400 MG CAPSULE. PO SCH ×3 (09:06→20:44)
[2018-07-04] MEDS: ALLOPURINOL 100 MG TABLET. PO SCH (09:31)
--- NOTE | 2018-07-04 09:43 | PDOC ---
PROGRESS NOTES Subjective Subjective Patient feeling better redness in leg improving. patient with poor mobility and has little support at home. Objective Objective Vital Signs Date Time Temp Pulse Resp B/P (MAP) Pulse Ox O2 Delivery O2 Flow Rate FiO2 07/04/18 09:05 65 125/53 07/04/18 07:00 98.2 20 94 Room Air 98.2 07/03/18 20:00 2.0 Intake and Output 07/04/18 07:00 Intake Total 750 ml Output Total 1200 ml Balance -450 ml Intake Oral 600 ml IV Total 150 ml Output Urine Total 1200 ml Physical Exam Abdomen: Normal bowel sounds Heart: Regular rate Extremities: Other (lymphedema) General: Alert Lungs: Clear to auscultation Assessment Assessment Problems Medical Problems: (1) Cellulitis of right leg Status: Acute (2) Fever Status: Acute (3) Nausea & vomiting Status: Acute 1. Sepsis with cellulitis R LE 2. N/V - resolve 3. hyperkalemia - resolved. 4. DM2 5. CKD III 6. HTN 7. Hx DVT 8. Morbid Obesity 9. Mild protein malnutrition 10. debilitation Plan Plan of Care D/C vanco cr up to 2.0 recheck BMP in am Increase activity Continue PT/OT May need SNU care Comment Review of Relevant I have reviewed the following items minda (where applicable) has been applied. Labs Laboratory Tests Test 07/02/18 11:25 07/02/18 16:56 07/02/18 20:33 07/03/18 04:53 Glucose (Fingerstick) 179 mg/dL (70-99) 169 mg/dL (70-99) 197 mg/dL (70-99) Sodium Level 140 mmol/L (136-145) Potassium Level 4.6 mmol/L (3.5-5.1) Chloride Level 106 mmol/L (98-107) Carbon Dioxide Level 29 mmol/L (21-32) Anion Gap 5 (6-14) Blood Urea Nitrogen 34 mg/dL (7-20) Creatinine 2.0 mg/dL (0.6-1.0) Estimated GFR (Cockcroft-Gault) 24.8 Glucose Level 139 mg/dL (70-99) Calcium Level 8.8 mg/dL (8.5-10.1) Test 07/03/18 07:14 8/24/18 11:28 07/03/18 16:45 07/03/18 20:30 Glucose (Fingerstick) 167 mg/dL (70-99) 170 mg/dL (70-99) 209 mg/dL (70-99) 184 mg/dL (70-99) Test 07/03/18 22:00 07/04/18 02:00 07/04/18 07:28 Vancomycin Level Trough 14.1 mcg/mL (10.0-20.0) Vancomycin Last Dose Date 07/02/18 Vancomycin Last Dose Time 2330 Creatinine 2.0 mg/dL (0.6-1.0) Estimated GFR (Cockcroft-Gault) 24.8 Glucose (Fingerstick) 129 mg/dL (70-99) Laboratory Tests Test 07/03/18 11:28 07/03/18 16:45 07/03/18 20:30 07/03/18 22:00 Glucose (Fingerstick) 170 mg/dL (70-99) 209 mg/dL (70-99) 184 mg/dL (70-99) Vancomycin Level Trough 14.1 mcg/mL (10.0-20.0) Vancomycin Last Dose Date 07/02/18 Vancomycin Last Dose Time 2330 Test 07/04/18 02:00 07/04/18 07:28 Creatinine 2.0 mg/dL (0.6-1.0) Estimated GFR (Cockcroft-Gault) 24.8 Glucose (Fingerstick) 129 mg/dL (70-99) Microbiology 07/01/18 Blood Culture - Preliminary, Resulted NO GROWTH AFTER 2 DAYS 07/01/18 Urine Culture - Preliminary, Resulted 07/01/18 Urine Culture Result 1 (PHILLIP) - Preliminary, Resulted Medications Current Medications Sodium Chloride 1,000 ml @ 1,000 mls/hr 1X ONCE IV Last administered on at 21:40; Start 07/01/18 at 21:30; Stop 07/01/18 at 22:29; Status DC Ondansetron HCl (Zofran) 4 mg 1X ONCE IV Last administered on 07/01/18at 21:45 ; Start 07/01/18 at 21:30; Stop 07/01/18 at 21:31; Status DC Piperacillin Sod/ Tazobactam Sod 3.375 gm/Sodium Chloride 50 ml @ 100 mls/hr 1X ONCE IV Last administered on 07/01/18at 21:46; Start 07/01/18 at 21:45; Stop 07/01/18 at 22:14; Status DC Vancomycin HCl (Vanco Per Pharmacy) 1 each PRN DAILY PRN MC SEE COMMENTS Last administered on 07/03/18at 23:02; Start 07/01/18 at 21:30 Vancomycin HCl 2 gm/Sodium Chloride 500 ml @ 250 mls/hr 1X ONCE IV Last administered on 07/01/18at 22:34; Start 07/01/18 at 22:00; Stop 07/01/18 at 23:59 ; Status DC Acetaminophen (Tylenol) 650 mg 1X ONCE PO ; Start 07/01/18 at 22:15; Stop 07/01 at 22:16; Status DC Ondansetron HCl (Zofran) 4 mg PRN Q8HRS PRN IV NAUSEA/VOMITING; Start 07/01/18 at 23:00; Stop 07/02/18 at 22:59; Status DC Sodium Chloride 1,000 ml @ 1,000 mls/hr 1X ONCE IV Last administered on at 00:00; Start 07/01/18 at 23:00; Stop 07/01/18 at 23:59; Status DC Vancomycin HCl 1.75 gm/Sodium Chloride 500 ml @ 250 mls/hr Q24H IV Last administered on 07/03/18at 23:05; Start 07/02/18 at 22:30 Vancomycin HCl (Vancomycin Trough Level) 1 each 1X ONCE MC ; Start 07/01/18 at 22:00; Stop 07/01/18 at 23:17; Status DC Vancomycin HCl (Vancomycin Trough Level) 1 each 1X ONCE MC ; Start 07/03/18 at 22:00; Stop 07/03/18 at 22:01; Status DC Piperacillin Sod/ Tazobactam Sod 3.375 gm/Sodium Chloride 50 ml @ 100 mls/hr Q6HRS IV Last administered on 07/04/18at 06:58; Start 07/02/18 at 12:00 Insulin Human Lispro (HumaLOG) 0-7 UNITS TIDWMEALS SQ Last administered on 07/03at 17:32; Start 07/02/18 at 09:00 Dextrose (Dextrose 50%-Water Syringe) 12.5 gm PRN Q15MIN PRN IV SEE COMMENTS; Start 07/02/18 at 08:45 Allopurinol (Zyloprim) 100 mg DAILY PO Last administered on 07/03/18 08:35; Start 07/02/18 at 09:00 Citalopram Hydrobromide (CeleXA) 10 mg HS PO Last administered on 07/03/18 20: 18; Start 07/02/18 at 21:00 Colchicine (Colcrys) 0.6 mg DAILY PO Last administered on 07/04/18 09:04; Start 07/02/18 at 09:00 Cyanocobalamin (Vitamin B-12) 1,000 mcg DAILY PO Last administered on 09:05; Start 07/02/18 at 09:00 Furosemide (Lasix) 20 mg DAILY PO Last administered on 07/04/18 09:05; Start 07/02/18 at 09:00 Insulin Human Lispro (HumaLOG) 15 units DAILYWBKFT SQ Last administered on 07/04 09:17; Start 07/02/18 at 09:30 Insulin Human Lispro (HumaLOG) 20 units DAILYWSUP SQ Last administered on 17:33; Start 07/02/18 at 17:00 Insulin Glargine (Lantus) 42 units QHS SQ Last administered on 07/03/18 21:01 ; Start 07/02/18 at 21:00 Lisinopril (Prinivil) 10 mg BID PO Last administered on 07/04/18 09:05; Start 07/02/18 at 09:00 Rivaroxaban (Xarelto) 15 mg QPM PO Last administered on 07/03/18 17:27; Start 07/02/18 at 18:00 Acetaminophen (Tylenol) 650 mg BID PO Last administered on 07/04/18 09:05; Start 07/02/18 at 09:00 EZETIMIBE (Zetia) 10 mg DAILY PO Last administered on 07/04/18 09:04; Start at 09:00 Gabapentin (Neurontin) 800 mg TID PO Last administered on 07/04/18 09:06; Start 07/02/18 at 09:00 Levothyroxine Sodium (Synthroid) 25 mcg DAILY07 PO Last administered on 07:00; Start 07/02/18 at 09:00 Fish Oil (Fish Oil) 1,000 mg DAILY PO Last administered on 07/04/18at 09:05; Start 07/02/18 at 09:00 Simvastatin (Zocor) 20 mg DAILY PO Last administered on 07/04/18 09:05; Start 07/02/18 at 09:00 Info (Anti-Coagulation Monitoring By Pharmacy) 1 each PRN DAILY PRN MC SEE COMMENTS Last administered on 07/03/18at 16:52; Start 07/02/18 at 15:30 Lactobacillus Rhamnosus (Culturelle) 1 cap BID PO Last administered on 09:04; Start 07/02/18 at 21:00 Active Scripts Active Gabapentin 800 Mg Tablet 800 Mg PO TID 30 Days Lasix (Furosemide) 20 Mg Tablet 1 Tab PO DAILY 30 Days Reported Novolog (Insulin Aspart) 100 Unit/1 Ml Vial 15 Unit SQ DAILYWBKFT Lantus Solostar (Insulin Glargine,Hum.rec.anlog) 100 Unit/1 Ml Insuln.pen 42 Unit SQ QHS Colcrys (Colchicine) 0.6 Mg Tablet 1 Tab PO DAILY Allopurinol 100 Mg Tablet 1 Tab PO DAILY Vitamin B-12 (Cyanocobalamin (Vitamin B-12)) 1,000 Mcg Tablet 1 Tab PO DAILY Fish Oil ([employer]-3 Fatty Acids) 300 Mg Capsule 300 Mg PO DAILY Arthritis Pain Reliever (Acetaminophen) 650 Mg Tablet.er 650 Mg PO BID Novolog (Insulin Aspart) 100 Unit/1 Ml Vial 20 Unit SQ DAILYWSUP Lisinopril 10 Mg Tablet 1 Tab PO BID Xarelto (Rivaroxaban) 15 Mg Tablet 15 Mg PO DAILY Vytorin 10-20 Mg Tablet (Ezetimibe/Simvastatin) 1 Each Tablet 1 Tab PO DAILY Citalopram Hbr (Citalopram Hydrobromide) 10 Mg Tablet 1 Tab PO HS Levothyroxine Sodium 25 Mcg Tablet 1 Tab PO DAILY Vitals/I & O Vital Sign - Last 24 Hours 07/03/18 07/03/18 07/03/18 07/03/18 11:41 15:58 19:00 20:00 Temp 98.7 98.9 98.2 98.7 98.9 98.2 Pulse 81 79 81 Resp 20 20 20 B/P (MAP) 112/41 (64) 129/48 (75) 156/52 (86) Pulse Ox 92 96 97 O2 Delivery Nasal Cannula Nasal Cannula Nasal Cannula Nasal Cannula O2 Flow Rate 2.0 2.0 2.0 07/03/18 07/03/18 07/04/18 07/04/18 20:17 23:00 03:02 07:00 Temp 97.9 98.4 98.2 97.9 98.4 98.2 Pulse 81 67 64 65 Resp 20 20 20 B/P (MAP) 156/52 115/44 (67) 140/54 (82) 125/53 (77) Pulse Ox 91 97 94 O2 Delivery Nasal Cannula Nasal Cannula Room Air 07/04/18 09:05 Pulse 65 B/P (MAP) 125/53 Intake and Output 07/03/18 07/03/18 07/04/18 15:00 23:00 07:00 Intake Total 750 ml Output Total 400 ml 200 ml 600 ml Balance -400 ml 550 ml -600 ml LASHELL VELÁZQUEZ MD Jul 04, 2018 09:43
[2018-07-04 11:00] VITALS: BP 133/51
[2018-07-04] MEDS: ANTI-COAG MONITOR BY PHARMACY. MC PRN (14:43)
[2018-07-04] MEDS: RIVAROXABAN 15 MG TABLET. PO SCH (16:47)
[2018-07-04 19:25] VITALS: BP 151/47
[2018-07-04] MEDS: CITALOPRAM 10 MG TABLET. PO SCH (20:44)
[2018-07-04] MEDS: INSULIN GLARGINE 300 UNITS/3 ML INSULN.PEN. SQ SCH (21:16)
[2018-07-04 23:19] VITALS: BP 130/38
[2018-07-05] MEDS: PIPERACILLIN/TAZOBACTAM 3.375 GM in IV NORMAL SALINE 50ML 50 ML IV SCH ×2 (00:35→06:35)
[2018-07-05 03:41] VITALS: BP 139/53
[2018-07-05 06:04] LABS: CALCIUM 8.9 mg/dL (8.5-10.1); CREATININE 1.6 mg/dL (0.6-1.0); GFR 32.1; POTASSIUM 3.9 mmol/L (3.5-5.1)
[2018-07-05 06:08] LABS: CREATININE 1.7 mg/dL (0.6-1.0); GFR 29.9
[2018-07-05] MEDS: LEVOTHYROXINE 25 MCG TABLET. PO SCH (06:34)
[2018-07-05 07:20] VITALS: BP 150/64
[2018-07-05] MEDS: INSULIN LISPRO 300 UNITS/3 ML INSULN.PEN. SQ SCH ×5 (08:00→17:29)
[2018-07-05] MEDS: LACTOBACILLUS RHAMNOSUS GG 1 CAPSULE. PO SCH ×2 (08:32→21:38)
[2018-07-05] MEDS: COLCHICINE 0.6 MG TABLET PO SCH (08:32)
[2018-07-05] MEDS: SIMVASTATIN 20 MG TABLET PO SCH (08:32)
[2018-07-05] MEDS: EZETIMIBE 10 MG TABLET. PO SCH (08:33)
[2018-07-05] MEDS: FUROSEMIDE 20 MG TABLET PO SCH (08:33)
[2018-07-05] MEDS: CYANOCOBALAMIN (VITAMIN B-12) 1,000 MCG TABLET. PO SCH (08:33)
[2018-07-05] MEDS: ACETAMINOPHEN 325 MG TABLET. PO SCH ×2 (08:33→21:38)
[2018-07-05] MEDS: OMEGA-3 FATTY ACIDS/FISH OIL 1,000 MG CAPSULE. PO SCH (08:33)
[2018-07-05] MEDS: LISINOPRIL 10 MG TABLET PO SCH ×2 (08:33→21:39)
[2018-07-05] MEDS: ALLOPURINOL 100 MG TABLET. PO SCH (08:34)
[2018-07-05] MEDS: GABAPENTIN 400 MG CAPSULE. PO SCH ×3 (08:34→21:38)
--- NOTE | 2018-07-05 11:27 | PDOC ---
PROGRESS NOTES Subjective Subjective Patient without complaint. States R leg hurts less than it did at admission. Objective Objective Vital Signs Date Time Temp Pulse Resp B/P (MAP) Pulse Ox O2 Delivery O2 Flow Rate FiO2 07/05/18 08:33 92 150/64 07/05/18 08:00 Nasal Cannula 2.0 07/05/18 07:20 98.3 18 96 98.3 Intake and Output 07/05/18 07:00 Intake Total 2250 ml Output Total 650 ml Balance 1600 ml Intake Oral 2200 ml IV Total 50 ml Output Urine Total 650 ml # Voids 4 # Bowel Movements 4 Physical Exam Abdomen: Normal bowel sounds, Soft, No tenderness Heart: Regular rate Extremities: Other (R LE with diffuse resolving erythema. Chronic venous stasis changes bilateral LE's with mild diffuse edema) General: Alert, Oriented X3, No acute distress Lungs: Clear to auscultation Assessment Assessment Problems Medical Problems: (1) Cellulitis of right leg Status: Acute (2) Fever Status: Acute (3) Nausea & vomiting Status: Acute Plan Plan of Care 1. Cellulitis R LE - improving. Blood cultures initially positive, no final report yet. 2. UTI - Enterobacter present. Resistant to Augmentin, will change abx to Rocephin as it is sensitive to this. 3. DM2 - fairly well controlled, continue present meds. 4. CKD III - stable on lab. 5. HTN - controlled with home meds. 6. debility - did fairly well with PT yesterday, continue therapies. Patient plans to go home at discharge, lives with several family members who can assist her as needed. Comment Review of Relevant I have reviewed the following items minda (where applicable) has been applied. Labs Laboratory Tests Test 07/03/18 11:28 07/03/18 16:45 07/03/18 20:30 07/03/18 22:00 Glucose (Fingerstick) 170 mg/dL (70-99) 209 mg/dL (70-99) 184 mg/dL (70-99) Vancomycin Level Trough 14.1 mcg/mL (10.0-20.0) Vancomycin Last Dose Date 07/02/18 Vancomycin Last Dose Time 2330 Test 07/04/18 02:00 07/04/18 07:28 07/04/18 12:06 07/04/18 17:05 Creatinine 2.0 mg/dL (0.6-1.0) Estimated GFR (Cockcroft-Gault) 24.8 Glucose (Fingerstick) 129 mg/dL (70-99) 178 mg/dL (70-99) 233 mg/dL (70-99) Test 07/04/18 21:04 07/05/18 04:10 07/05/18 07:23 Glucose (Fingerstick) 182 mg/dL (70-99) 139 mg/dL (70-99) Sodium Level 138 mmol/L (136-145) Potassium Level 3.9 mmol/L (3.5-5.1) Chloride Level 103 mmol/L (98-107) Carbon Dioxide Level 31 mmol/L (21-32) Anion Gap 4 (6-14) Blood Urea Nitrogen 29 mg/dL (7-20) Creatinine 1.6 mg/dL (0.6-1.0) Estimated GFR (Cockcroft-Gault) 32.1 Glucose Level 196 mg/dL (70-99) Calcium Level 8.9 mg/dL (8.5-10.1) Laboratory Tests Test 07/04/18 12:06 07/04/18 17:05 07/04/18 21:04 07/05/18 04:10 Glucose (Fingerstick) 178 mg/dL (70-99) 233 mg/dL (70-99) 182 mg/dL (70-99) Sodium Level 138 mmol/L (136-145) Potassium Level 3.9 mmol/L (3.5-5.1) Chloride Level 103 mmol/L (98-107) Carbon Dioxide Level 31 mmol/L (21-32) Anion Gap 4 (6-14) Blood Urea Nitrogen 29 mg/dL (7-20) Creatinine 1.6 mg/dL (0.6-1.0) Estimated GFR (Cockcroft-Gault) 32.1 Glucose Level 196 mg/dL (70-99) Calcium Level 8.9 mg/dL (8.5-10.1) Test 07/05/18 07:23 Glucose (Fingerstick) 139 mg/dL (70-99) Microbiology 07/01/18 Blood Culture - Preliminary, Resulted NO GROWTH AFTER 3 DAYS 07/01/18 Urine Culture - Final, Complete 07/01/18 Urine Culture Result 1 (PHILLIP) - Final, Complete 07/01/18 Antimicrobic Susceptibility - Final, Complete Medications Current Medications Sodium Chloride 1,000 ml @ 1,000 mls/hr 1X ONCE IV Last administered on at 21:40; Start 07/01/18 at 21:30; Stop 07/01/18 at 22:29; Status DC Ondansetron HCl (Zofran) 4 mg 1X ONCE IV Last administered on 07/01/18at 21:45 ; Start 07/01/18 at 21:30; Stop 07/01/18 at 21:31; Status DC Piperacillin Sod/ Tazobactam Sod 3.375 gm/Sodium Chloride 50 ml @ 100 mls/hr 1X ONCE IV Last administered on 07/01/18at 21:46; Start 07/01/18 at 21:45; Stop 07/01/18 at 22:14; Status DC Vancomycin HCl (Vanco Per Pharmacy) 1 each PRN DAILY PRN MC SEE COMMENTS Last administered on 07/03/18at 23:02; Start 07/01/18 at 21:30; Stop 07/04/18 at 09:41 ; Status DC Vancomycin HCl 2 gm/Sodium Chloride 500 ml @ 250 mls/hr 1X ONCE IV Last administered on 07/01/18at 22:34; Start 07/01/18 at 22:00; Stop 07/01/18 at 23:59 ; Status DC Acetaminophen (Tylenol) 650 mg 1X ONCE PO ; Start 07/01/18 at 22:15; Stop 07/01 at 22:16; Status DC Ondansetron HCl (Zofran) 4 mg PRN Q8HRS PRN IV NAUSEA/VOMITING; Start 07/01/18 at 23:00; Stop 07/02/18 at 22:59; Status DC Sodium Chloride 1,000 ml @ 1,000 mls/hr 1X ONCE IV Last administered on at 00:00; Start 07/01/18 at 23:00; Stop 07/01/18 at 23:59; Status DC Vancomycin HCl 1.75 gm/Sodium Chloride 500 ml @ 250 mls/hr Q24H IV Last administered on 07/03/18at 23:05; Start 07/02/18 at 22:30; Stop 07/04/18 at 09:41 ; Status DC Vancomycin HCl (Vancomycin Trough Level) 1 each 1X ONCE MC ; Start 07/01/18 at 22:00; Stop 07/01/18 at 23:17; Status DC Vancomycin HCl (Vancomycin Trough Level) 1 each 1X ONCE MC ; Start 07/03/18 at 22:00; Stop 07/04/18 at 09:41; Status DC Piperacillin Sod/ Tazobactam Sod 3.375 gm/Sodium Chloride 50 ml @ 100 mls/hr Q6HRS IV Last administered on 07/05/18at 06:35; Start 07/02/18 at 12:00 Insulin Human Lispro (HumaLOG) 0-7 UNITS TIDWMEALS SQ Last administered on 07/04at 17:28; Start 07/02/18 at 09:00 Dextrose (Dextrose 50%-Water Syringe) 12.5 gm PRN Q15MIN PRN IV SEE COMMENTS; Start 07/02/18 at 08:45 Allopurinol (Zyloprim) 100 mg DAILY PO Last administered on 07/05/18at 08:34; Start 07/02/18 at 09:00 Citalopram Hydrobromide (CeleXA) 10 mg HS PO Last administered on 07/04/18at 20: 44; Start 07/02/18 at 21:00 Colchicine (Colcrys) 0.6 mg DAILY PO Last administered on 07/05/18at 08:32; Start 07/02/18 at 09:00 Cyanocobalamin (Vitamin B-12) 1,000 mcg DAILY PO Last administered on 08:33; Start 07/02/18 at 09:00 Furosemide (Lasix) 20 mg DAILY PO Last administered on 07/05/18at 08:33; Start 07/02/18 at 09:00 Insulin Human Lispro (HumaLOG) 15 units DAILYWBKFT SQ Last administered on 07/05at 08:50; Start 07/02/18 at 09:30 Insulin Human Lispro (HumaLOG) 20 units DAILYWSUP SQ Last administered on 17:29; Start 07/02/18 at 17:00 Insulin Glargine (Lantus) 42 units QHS SQ Last administered on 07/04/18at 21:16 ; Start 07/02/18 at 21:00 Lisinopril (Prinivil) 10 mg BID PO Last administered on 07/05/18 08:33; Start 07/02/18 at 09:00 Rivaroxaban (Xarelto) 15 mg QPM PO Last administered on 07/04/18 16:47; Start 07/02/18 at 18:00 Acetaminophen (Tylenol) 650 mg BID PO Last administered on 07/05/18 08:33; Start 07/02/18 at 09:00 EZETIMIBE (Zetia) 10 mg DAILY PO Last administered on 07/05/18 08:33; Start at 09:00 Gabapentin (Neurontin) 800 mg TID PO Last administered on 07/05/18 08:34; Start 07/02/18 at 09:00 Levothyroxine Sodium (Synthroid) 25 mcg DAILY07 PO Last administered on 06:34; Start 07/02/18 at 09:00 Fish Oil (Fish Oil) 1,000 mg DAILY PO Last administered on 07/05/18 08:33; Start 07/02/18 at 09:00 Simvastatin (Zocor) 20 mg DAILY PO Last administered on 07/05/18 08:32; Start 07/02/18 at 09:00 Info (Anti-Coagulation Monitoring By Pharmacy) 1 each PRN DAILY PRN MC SEE COMMENTS Last administered on 07/04/18 14:43; Start 07/02/18 at 15:30 Lactobacillus Rhamnosus (Culturelle) 1 cap BID PO Last administered on 08:32; Start 07/02/18 at 21:00 Active Scripts Active Gabapentin 800 Mg Tablet 800 Mg PO TID 30 Days Lasix (Furosemide) 20 Mg Tablet 1 Tab PO DAILY 30 Days Reported Novolog (Insulin Aspart) 100 Unit/1 Ml Vial 15 Unit SQ DAILYWBKFT Lantus Solostar (Insulin Glargine,Hum.rec.anlog) 100 Unit/1 Ml Insuln.pen 42 Unit SQ QHS Colcrys (Colchicine) 0.6 Mg Tablet 1 Tab PO DAILY Allopurinol 100 Mg Tablet 1 Tab PO DAILY Vitamin B-12 (Cyanocobalamin (Vitamin B-12)) 1,000 Mcg Tablet 1 Tab PO DAILY Fish Oil ([employer]-3 Fatty Acids) 300 Mg Capsule 300 Mg PO DAILY Arthritis Pain Reliever (Acetaminophen) 650 Mg Tablet.er 650 Mg PO BID Novolog (Insulin Aspart) 100 Unit/1 Ml Vial 20 Unit SQ DAILYWSUP Lisinopril 10 Mg Tablet 1 Tab PO BID Xarelto (Rivaroxaban) 15 Mg Tablet 15 Mg PO DAILY Vytorin 10-20 Mg Tablet (Ezetimibe/Simvastatin) 1 Each Tablet 1 Tab PO DAILY Citalopram Hbr (Citalopram Hydrobromide) 10 Mg Tablet 1 Tab PO HS Levothyroxine Sodium 25 Mcg Tablet 1 Tab PO DAILY Vitals/I & O Vital Sign - Last 24 Hours 07/04/18 07/04/18 07/04/18 07/04/18 19:25 20:00 20:44 23:19 Temp 98.1 98.2 98.1 98.2 Pulse 69 73 Resp 18 20 B/P (MAP) 151/47 (81) 151/47 130/38 (68) Pulse Ox 94 95 O2 Delivery Nasal Cannula Nasal Cannula Nasal Cannula O2 Flow Rate 2.0 2.0 2.0 07/05/18 07/05/18 07/05/18 07/05/18 03:41 07:20 08:00 08:33 Temp 98.2 98.3 98.2 98.3 Pulse 70 92 92 Resp 18 18 B/P (MAP) 139/53 (81) 150/64 (92) 150/64 Pulse Ox 94 96 O2 Delivery Nasal Cannula Room Air Nasal Cannula O2 Flow Rate 2.0 2.0 2.0 Intake and Output 07/04/18 07/04/18 07/05/18 15:00 23:00 07:00 Intake Total 50 ml 800 ml 1400 ml Output Total 650 ml Balance 50 ml 150 ml 1400 ml GRAEME MARCELINO MD Jul 05, 2018 11:27
[2018-07-05 11:30] VITALS: BP 160/56
[2018-07-05] MEDS: cefTRIAXone IV Push 1 GM VIAL. IVP SCH (12:17)
[2018-07-05] MEDS: ANTI-COAG MONITOR BY PHARMACY. MC PRN (14:30)
[2018-07-05 15:11] VITALS: BP 175/61
[2018-07-05] MEDS: RIVAROXABAN 15 MG TABLET. PO SCH (18:16)
[2018-07-05 19:00] VITALS: BP 102/60
[2018-07-05] MEDS: CITALOPRAM 10 MG TABLET. PO SCH (21:39)
[2018-07-05] MEDS: INSULIN GLARGINE 300 UNITS/3 ML INSULN.PEN. SQ SCH (21:43)
[2018-07-05 23:00] VITALS: BP 166/51
[2018-07-06 03:00] VITALS: BP 158/64
[2018-07-06 05:45] LABS: CREATININE 1.5 mg/dL (0.6-1.0); GFR 34.5
[2018-07-06] MEDS: LEVOTHYROXINE 25 MCG TABLET. PO SCH (06:26)
[2018-07-06 07:25] VITALS: BP 148/53
[2018-07-06] MEDS: INSULIN LISPRO 300 UNITS/3 ML INSULN.PEN. SQ SCH ×5 (08:00→17:41)
[2018-07-06] MEDS: SIMVASTATIN 20 MG TABLET PO SCH (08:24)
[2018-07-06] MEDS: CYANOCOBALAMIN (VITAMIN B-12) 1,000 MCG TABLET. PO SCH (08:24)
[2018-07-06] MEDS: EZETIMIBE 10 MG TABLET. PO SCH (08:24)
[2018-07-06] MEDS: COLCHICINE 0.6 MG TABLET PO SCH (08:24)
[2018-07-06] MEDS: LISINOPRIL 10 MG TABLET PO SCH ×2 (08:24→20:36)
[2018-07-06] MEDS: FUROSEMIDE 20 MG TABLET PO SCH (08:24)
[2018-07-06] MEDS: ALLOPURINOL 100 MG TABLET. PO SCH (08:25)
[2018-07-06] MEDS: ACETAMINOPHEN 325 MG TABLET. PO SCH ×2 (08:25→20:36)
[2018-07-06] MEDS: LACTOBACILLUS RHAMNOSUS GG 1 CAPSULE. PO SCH ×2 (08:25→20:36)
[2018-07-06] MEDS: GABAPENTIN 400 MG CAPSULE. PO SCH ×3 (08:25→20:36)
[2018-07-06] MEDS: OMEGA-3 FATTY ACIDS/FISH OIL 1,000 MG CAPSULE. PO SCH (08:25)
[2018-07-06] MEDS ORDERED: BENZOCAINE 10% ORAL GEL 7GM TUBE. TP PRN (09:00)
[2018-07-06 10:38] VITALS: BP 157/70
[2018-07-06] MEDS: cefTRIAXone IV Push 1 GM VIAL. IVP SCH (13:16)
[2018-07-06] MEDS: ANTI-COAG MONITOR BY PHARMACY. MC PRN (15:01)
[2018-07-06 15:16] VITALS: BP 175/64
--- NOTE | 2018-07-06 16:50 | PDOC ---
PROGRESS NOTES Subjective + blood and urine cultures, now on ceftriaxone, no DVT, leg remains red c/w cellulitis. She denies cardiopulmonary symptoms Objective Afebrile BP: [] General: A&O Heart: RRR Lungs: CTA Abd: ND/NT Ext: erythema of right lower leg glucose: 125 Creat: 1.5 URINE CULTURE Final Final report URINE CULTURE RES 1 Final Comment Enterobacter aerogenes Greater than 100,000 colony forming units per mL ANTIMICROBIAL SUSCEPTIBILITY Final Comment S = Susceptible; I = Intermediate; R = Resistant P = Positive; N = Negative MICS are expressed in micrograms per mL Antibiotic RSLT#1 RSLT#2 RSLT#3 RSLT#4 Amoxicillin/Clavulanic Acid R =R Cefepime S<=0.12 Ceftriaxone S<=0.25 Cefuroxime R =R Ciprofloxacin S<=0.25 Ertapenem S<=0.12 Gentamicin S<=1 Imipenem S<=0.25 Levofloxacin S<=0.12 Meropenem S<=0.25 Nitrofurantoin S<=16 Tetracycline S<=1 Tobramycin S<=1 Trimethoprim/Sulfa S<=20 Performed at: [address] [id number] Network Internship: ALOK Martinez MD, Phone: [phone] BLOOD CULTURE LC Final Final report BLD CULT RESULT 1 Final Serratia marcescens ANTIMICROBIAL SUSCEPTIBILITY Final Comment S = Susceptible; I = Intermediate; R = Resistant P = Positive; N = Negative MICS are expressed in micrograms per mL Antibiotic RSLT#1 RSLT#2 RSLT#3 RSLT#4 Amoxicillin/Clavulanic Acid R>=32 Cefazolin R>=64 Cefepime S<=0.12 Ceftriaxone S<=0.25 Cefuroxime R =32 Ciprofloxacin S<=0.25 Ertapenem S<=0.12 Gentamicin S<=1 Levofloxacin S<=0.12 Meropenem S<=0.25 Nitrofurantoin R =256 Tetracycline R>=16 Tobramycin I =8 Trimethoprim/Sulfa S<=20 Performed at: [facility] [place] [id number], [place] [id number] Network Internship: ALOK Martinez MD, Phone: [phone] Vital Signs Vital Signs Date Time Temp Pulse Resp B/P (MAP) Pulse Ox O2 Delivery O2 Flow Rate FiO2 07/06/18 15:16 98.0 73 20 175/64 (101) 92 Room Air 98.0 07/06/18 08:00 2.0 I & O Intake and Output 07/06/18 07:00 Intake Total 2040 ml Balance 2040 ml Intake Oral 2040 ml # Voids 7 # Bowel Movements 2 Assessment and Plan 1. Sepsis with cellulitis R LE, UTI and bacteremia - stable overnight, fever improving. Blood cx positive 1/4 bottles for G- rods (Serratia) and G+ cocci ( Enterococcus) both sensitive to ceftriaxone. Venous dopplers negative, patient does have hx of DVT. She reports she has been taking her Xarelto daily. 2. N/V - resolve but may have been enough to raise her Cr. patient apparently had one episode of this in ER but none since. Denies any problems with it at home, eating well, has Zofran prn, diet as tolerated. Received IVF overnight initially, no further fluids presently indicated but will monitor. 3. hyperkalemia - resolved. Office chart indicates patient takes K+ at home, although not on home med list on hospital chart. No supplement ordered, recheck lab in AM. 4. DM2 - continue insulins, controlled. 5. CKD III - stable on lab. 6. HTN - continue home medication. 7. Hx DVT - continue Xarelto daily. Chad SHAIKH MD Jul 06, 2018 16:50
[2018-07-06] MEDS: RIVAROXABAN 15 MG TABLET. PO SCH (17:20)
[2018-07-06 18:37] VITALS: BP 147/52
[2018-07-06] MEDS: CITALOPRAM 10 MG TABLET. PO SCH (20:36)
[2018-07-06] MEDS: INSULIN GLARGINE 300 UNITS/3 ML INSULN.PEN. SQ SCH (20:46)
[2018-07-06 23:30] VITALS: BP 151/56
[2018-07-07 03:33] VITALS: BP 119/62
[2018-07-07] MEDS: LEVOTHYROXINE 25 MCG TABLET. PO SCH (06:05)
[2018-07-07 07:48] VITALS: BP 154/78
[2018-07-07] MEDS: INSULIN LISPRO 300 UNITS/3 ML INSULN.PEN. SQ SCH ×3 (08:00→13:51)
[2018-07-07] MEDS: CYANOCOBALAMIN (VITAMIN B-12) 1,000 MCG TABLET. PO SCH (10:35)
[2018-07-07] MEDS: OMEGA-3 FATTY ACIDS/FISH OIL 1,000 MG CAPSULE. PO SCH (10:36)
[2018-07-07] MEDS: EZETIMIBE 10 MG TABLET. PO SCH (10:36)
[2018-07-07] MEDS: SIMVASTATIN 20 MG TABLET PO SCH (10:36)
[2018-07-07] MEDS: GABAPENTIN 400 MG CAPSULE. PO SCH ×2 (10:36→13:49)
[2018-07-07] MEDS: ACETAMINOPHEN 325 MG TABLET. PO SCH (10:36)
[2018-07-07] MEDS: COLCHICINE 0.6 MG TABLET PO SCH (10:36)
[2018-07-07] MEDS: FUROSEMIDE 20 MG TABLET PO SCH (10:37)
[2018-07-07] MEDS: ALLOPURINOL 100 MG TABLET. PO SCH (10:37)
[2018-07-07] MEDS: LISINOPRIL 10 MG TABLET PO SCH (10:37)
[2018-07-07] MEDS: LACTOBACILLUS RHAMNOSUS GG 1 CAPSULE. PO SCH (10:37)
[2018-07-07] MEDS: ANTI-COAG MONITOR BY PHARMACY. MC PRN (10:59)
[2018-07-07 11:30] VITALS: BP 151/57
[2018-07-07] MEDS: cefTRIAXone IV Push 1 GM VIAL. IVP SCH (13:41)
[2018-07-07] MEDS ORDERED: CEFP200T PO (14:59)
[2018-07-07] MEDS ORDERED: LACT1CAP19 PO (14:59)
[2018-07-07 15:09] VITALS: BP 153/54
--- NOTE | 2018-07-07 17:05 | PDOC3 ---
Discharge Summary [facility] Date of Admission: Jul 01, 2018 Discharge Date: Jul 07, 2018 Admitting Diagnosis cellulitis Final Diagnosis (1) SEPSIS - gram negative and gram positive with Cellulitis of right leg, UTI, bacteremia Status: Acute (2) Fever Status: Acute (3) Nausea & vomiting Status: Acute CONSULTS none Procedures none Brief Hospital Course Ms. Duran is a 67 old who presented with: 1. Sepsis with cellulitis R LE, UTI and bacteremia - stable overnight, fever improving. Blood cx positive 1/4 bottles for G- rods (Serratia) and G+ cocci ( Enterococcus) both sensitive to ceftriaxone, discharged on cefpodoxime 200 mg bid x 7 days. Venous dopplers negative, patient does have hx of DVT. She reports she has been taking her Xarelto daily. 2. N/V - resolve but may have been enough to raise her Cr. patient apparently had one episode of this in ER but none since. Denies any problems with it at home, eating well, has Zofran prn, diet as tolerated. Received IVF overnight initially, no further fluids presently indicated but will monitor. 3. hyperkalemia - resolved. Office chart indicates patient takes K+ at home, although not on home med list on hospital chart. No supplement ordered, recheck lab in AM. 4. DM2 - continue insulins, controlled. 5. CKD III - stable on lab. 6. HTN - continue home medication. 7. Hx DVT - continue Xarelto daily. CONDITION AT DISCHARGE: Improved, Stable Scheduled Acetaminophen (Arthritis Pain Reliever), 650 MG PO BID, (Reported) Allopurinol (Allopurinol), 1 TAB PO DAILY, (Reported) Cefpodoxime Proxetil (Cefpodoxime Proxetil), 1 TAB PO BID Citalopram Hydrobromide (Citalopram Hbr), 1 TAB PO HS, (Reported) Colchicine (Colcrys), 1 TAB PO DAILY, (Reported) Cyanocobalamin (Vitamin B-12) (Vitamin B-12), 1 TAB PO DAILY, (Reported) Ezetimibe/Simvastatin (Vytorin 10-20 Mg Tablet), 1 TAB PO DAILY, (Reported) Furosemide (Lasix), 1 TAB PO DAILY Gabapentin (Gabapentin), 800 MG PO TID Insulin Aspart (Novolog), 20 UNIT SQ DAILYWSUP, (Reported) Insulin Aspart (Novolog), 15 UNIT SQ DAILYWBKFT, (Reported) Insulin Glargine,Hum.rec.anlog (Lantus Solostar), 42 UNIT SQ QHS, (Reported) Lactobacillus Rhamnosus Gg (Culturelle), 1 CAP PO BID Levothyroxine Sodium (Levothyroxine Sodium), 1 TAB PO DAILY, (Reported) Lisinopril (Lisinopril), 1 TAB PO BID, (Reported) [place]-3 Fatty Acids (Fish Oil), 300 MG PO DAILY, (Reported) Rivaroxaban (Xarelto), 15 MG PO DAILY, (Reported) Discontinued Medications Cephalexin (Keflex), 2 CAP PO BID Follow Up 1-2 weeks Chad SHAIKH MD Jul 07, 2018 17:05
== END 2018-07-07 18:00 | disposition home or self-care (01) | DRG 871 ==
LOC: ER 21:00 → 6 SOUTH 22:28
PROVIDERS: ADMIT Family Medicine; ATTEND Family Medicine
DX: A41.50 Gram-negative sepsis, unspecified (principal); N17.0 Acute kidney failure with tubular necrosis; L03.115 Cellulitis of right lower limb; E44.1 Mild protein-calorie malnutrition; I13.0 Hypertensive heart and chronic kidney disease with heart failure and stage 1 through stage 4 chronic kidney disease, or unspecified chronic kidney disease; I50.32 Chronic diastolic (congestive) heart failure; N39.0 Urinary tract infection, site not specified; N13.6 Pyonephrosis; Z68.43 Body mass index [BMI] 50.0-59.9, adult; E03.9 Hypothyroidism, unspecified; E11.22 Type 2 diabetes mellitus with diabetic chronic kidney disease; E66.01 Morbid (severe) obesity due to excess calories; E78.00 Pure hypercholesterolemia, unspecified; E78.5 Hyperlipidemia, unspecified; E87.5 Hyperkalemia; I87.2 Venous insufficiency (chronic) (peripheral); M19.90 Unspecified osteoarthritis, unspecified site; N18.3 Chronic kidney disease, stage 3 (moderate); Z79.01 Long term (current) use of anticoagulants; Z79.4 Long term (current) use of insulin; Z86.718 Personal history of other venous thrombosis and embolism; Z87.891 Personal history of nicotine dependence; Z90.5 Acquired absence of kidney
CPT/HCPCS: 36415; 71045; 80048; 80053; 80202; 81001; 82553; 82565; 82962; 83605; 83690; 83735; 83880; 84484; 85025; 85610; 85730; 87040; 87086; 87186; 87205; 93005; 93971; 96365; 96366; 96367; 96375; J0696; J1815; J2405; J2543; J3370; J7030; J7040; 97116; 97535; 99285-25

== ENCOUNTER → 2018-10-27 | Outpatient (CLI) | payer MEDICARE, MEDICAID ==
[~2018-10-27] MED LIST changes: +CEFP200T PO; -GABA-586 PO; +GABA300C18 PO; -GABA800T2 PO; +GABA800T3 PO; +LACT1CAP19 PO
--- NOTE | 2018-10-27 14:09 | KCIC ---
EXAM: Bilateral screening mammogram. HISTORY: 67-year-old female presents for screening mammography. TECHNIQUE: Full-field digital craniocaudal and mediolateral oblique views of both breasts are obtained for evaluation. Computer aided detection with [email or web address] software version 9.3 was applied. COMPARISON: There is no recent prior study for comparison. This exam serves as a new baseline mammogram. BREAST PARENCHYMAL DENSITY: Level B - Scattered fibroglandular densities. FINDINGS: There is a circumscribed nodular density within the upper outer quadrant of the right breast which may be due to an axillary tail lymph node or summation artifact of a tortuous vessel. There is also similar nodularity within the lateral aspect of the left breast. There are loosely grouped calcifications within the left breast. There is focal asymmetry within the slightly medial aspect of the left breast at mid to posterior depth in the craniocaudal projection. There is no architectural distortion. IMPRESSION: BI-RADS Category 0: Additional imaging needed. RECOMMENDATION: Further evaluation with full field true lateral views of both breasts and spot compression views of areas of nodularity within the right upper outer quadrant and lateral left breast as well as a magnification view of microcalcifications within the slightly inferior aspect of the left breast is recommended, given the absence of prior studies to confirm stability. Sonographic imaging can also be performed if deemed indicated based on additional imaging findings. If your mammogram demonstrates that you have dense breast tissue, which could hide abnormalities, and if you have other risk factors for breast cancer that have been identified, you might benefit from supplemental screening tests that may be suggested by your ordering physician. Dense breast tissue, in and of itself, is a relatively common condition. This information is not provided to cause undue concern, but rather to raise your awareness and to promote discussion with your physician regarding the presence of other risk factors, in addition to dense breast tissue. A report of your mammography results will be sent to you and your physician. You should contact your physician if you have any questions or concerns regarding this report. Mammography is a sensitive method for finding small breast cancers, but it does not detect them all and is not a substitute for careful clinical examination. A negative mammogram does not negate a clinically suspicious finding and should not result in delay in biopsying a clinically suspicious abnormality. PQRS compliance statement - Patient information was entered into a reminder system with a target due date for the next mammogram. "Our facility is accredited by the [employer] Mammography [employer]." Electronically signed by: Elizabeth Ng MD (10/27/2018 2:05 PM) [facility]
== END | disposition home or self-care (01) ==
LOC: KCIC MAMMO 13:03
PROVIDERS: ATTEND Family Medicine
DX: Z12.31 Encounter for screening mammogram for malignant neoplasm of breast (principal)
CPT/HCPCS: 77067

== ENCOUNTER → 2018-11-12 | Outpatient (CLI) | payer MEDICARE, MEDICAID ==
--- NOTE | 2018-11-12 14:24 | KCIC ---
Bilateral breast diagnostic ultrasound HISTORY: Abnormal mammogram Sonographic examination of the breasts was performed bilaterally and multiple static images were obtained. FINDINGS: There is a 6 mm x 13 mm x 4 mm lobulated hypoechoic nodule in the 10:00 right breast 1 cm from the nipple. This is nonshadowing has no detectable blood flow. There is a small benign-appearing lesion at 12:00 left breast 4 cm from the nipple that measures 3 mm is well-circumscribed appears to be fibrocystic changes. There is normal lymph nodes axilla bilaterally. IMPRESSION: Nonspecific lesion in the 10:00 periareolar right breast. There are no other abnormalities the breasts that appear similar to this lesion and therefore ultrasound-guided biopsy is recommended. These results were discussed with the patient in person. The patient and the clinical service will be contacted by the radiology staff for further instructions. BI-RADS Category 4: Suspicious. Electronically signed by: Donald Dukes III, MD (11/12/2018 2:20 PM) [facility]
--- NOTE | 2018-11-13 10:46 | KCIC ---
History: asymmetric tissue density bilaterally and microcalcifications on the left on the October 27, 2018 mammogram. Technique: The following digital mammographic additional views were obtained: spot MLO on the right true ML bilaterally and open mag ML view of the left breast. Computer aided detection was utilized with iCAD Second Look 7.2-H Findings: There are nonspecific micro calcs lesions bilaterally. There is multiple asymmetric tissue densities bilaterally and ultrasound demonstrates a mass in the 10:00 right breast 1 cm from the nipple. Impression: Recommend ultrasound guided biopsy of the 10:00 right breast mass. If there is benign pathology recommend bilateral mammogram in 6 months. BI-RADS Category 4: Suspicious. These results were given to the patient in person. A mammogram does not have 100% sensitivity and therefore a negative imaging study should not delay further work up of a suspicious abnormality. "Our facility is accredited by the [employer] Mammography Program." Electronically signed by: Donald Dukes III, MD (11/13/2018 10:41 AM) [facility]
== END | disposition home or self-care (01) ==
LOC: KCIC MAMMO 12:37
PROVIDERS: ATTEND Family Medicine
DX: N64.89 Other specified disorders of breast (principal)
CPT/HCPCS: 76641; 77066

== ENCOUNTER → 2019-02-05 | Outpatient (CLI) | payer MEDICARE, MEDICAID ==
[~2019-02-05] MED LIST changes: -GABA600T2 PO; +GABA600T7 PO; -GABA800T3 PO; +GABA800T5 PO
--- NOTE | 2019-02-09 08:39 | RAD ---
Ultrasound-guided right breast biopsy, 02/05/2019: History: Suspicious breast lesion A previous ultrasound exam demonstrated a suspicious hypoechoic focus at the 10:00 location approximately 1 cm from the nipple. Under local anesthesia, aseptic conditions and sonographic guidance the Otterology biopsy instrument was passed into the posterior aspect of this process via a lateral approach. Multiple 12-gauge vacuum-assisted core samples were obtained. A cylindrical biopsy marker was then deposited at the biopsy site. The biopsy instrument was removed and hemostasis obtained. Two-view postprocedural digital mammograms were then obtained to document position of the biopsy marker. The patient tolerated the procedure well and left the department in good condition. The subsequent pathologic report indicated the presence of stromal fibrosis and mild ductal ectasia without evidence of malignancy. Mammographic surveillance beginning with right mammography in 6 months is suggested.
== END | disposition home or self-care (01) ==
LOC: US 08:11
PROVIDERS: ATTEND Surgery
DX: N60.31 Fibrosclerosis of right breast (principal); N60.41 Mammary duct ectasia of right breast; E11.9 Type 2 diabetes mellitus without complications; Z90.5 Acquired absence of kidney; Z79.01 Long term (current) use of anticoagulants; Z79.4 Long term (current) use of insulin; Z91.018 Allergy to other foods
CPT/HCPCS: 19083; 77065; 88305; C1713; 19081; 76942

== ENCOUNTER 2020-05-01 15:58 | Emergency (ER) | payer MEDICARE, MEDICAID ==
[~2020-05-01] VITALS: Ht 160 cm; Wt 150.0 kg
[~2020-05-01 15:58] MED LIST changes: +CYAN-25 PO; -CYAN10005 PO; +POTA20TA4 PO; -POTA20TA82 PO
--- NOTE | 2020-05-01 17:26 | PHYS DOC ---
Past Medical History Past Medical History: CHF, Depression, Diabetes-Type II, High Cholesterol, Hypertension, Hypothyroid, Other Additional Past Medical Histor: NEUROPATHY, GOUT Past Surgical History: Cholecystectomy, Tubal ligation, Other Additional Past Surgical Histo: R nephrectomy Smoking Status: Never Smoker Alcohol Use: None Drug Use: None General Adult EDM: Chief Complaint: NAUSEA/VOMITING/DIARRHA HPI: HPI: Patient is a 69 year old female who presents with nausea and vomiting after taking doxycycline. Patient is also reporting chronic diarrhea that she has all the time for the last 20 years. Patient reports that she recently traveled to [facility] and when she got back on April 26 she saw her primary care because of right great toe bleeding. Patient was prescribed doxycycline. She reports that the bleeding has stopped and the toe is looking better. She has been cleaning the toe with chlorhexidine wash and applying mupirocin. Patient has a history of diabetes, CHF, hypertension, high cholesterol, hypothyroidism, cholecystectomy. Review of Systems: Review of Systems: GI: Denies abdominal pain, nausea, vomiting, bloody stools. +diarrhea. [] Integument: Denies rash. Right great toe redness and wound [] Heart Score: Risk Factors: Risk Factors: DM, Current or recent (<one month) smoker, HTN, HLP, family history of CAD, obesity. Risk Scores: Score 0 - 3: 2.5% MACE over next 6 weeks - Discharge Home Score 4 - 6: 20.3% MACE over next 6 weeks - Admit for Clinical Observation Score 7 - 10: 72.7% MACE over next 6 weeks - Early Invasive Strategies Allergies: Allergies: Allergies Coded Allergies Type Severity Reaction Last Updated Verified castor oil Allergy Intermediate rash 01/17/17 Yes Physical Exam: PE: Constitutional: Well developed, well nourished, no acute distress, non-toxic appearance. [] HENT: Normocephalic, atraumatic, bilateral external ears normal, oropharynx moist, no oral exudates, nose normal. [] Eyes: PERRLA, EOMI, conjunctiva normal, no discharge. [] Neck: Normal range of motion, no tenderness, supple, no stridor. [] Cardiovascular:Heart rate regular rhythm, no murmur [] Lungs & Thorax: Bilateral breath sounds clear to auscultation [] Abdomen: Bowel sounds normal, soft, no tenderness, no masses, no pulsatile masses. [] Skin: Warm, dry, right great toe erythema, no rash. [] Back: No tenderness, no CVA tenderness. [] Extremities: No tenderness, no cyanosis, no clubbing, ROM intact, no edema. [] Neurologic: Alert and oriented X 3, normal motor function, normal sensory function, no focal deficits noted. [] Psychologic: Affect normal, judgement normal, mood normal. [] EKG: EK and read by Dr Weems as Sinus Rhythm and no STEMI[] Radiology/Procedures: Radiology/Procedures: [] Impression: [facility] [address] [place] [address] IMAGING REPORT Signed PATIENT: SILVERIO PETERSEN ACCOUNT: [id number] : 1950 LOCATION: ER AGE: 69 SEX: F EXAM STATUS: REG ER ORD. PHYSICIAN: ABHISHEK CUELLO APRN REASON: Right great toe wound PROCEDURE: FOOT RIGHT 3V EXAM: AP, oblique and lateral views right foot DATE: 05/01/2020 5:17 PM INDICATION: Right great toe wound COMPARISON: No Prior FINDINGS: No evidence of acute fracture or dislocation. Midfoot predominant degenerative changes are seen. Soft tissue swelling about the right great toe. No definite erosive/destructive change or periostitis to suggest acute osteomyelitis. Calcaneal enthesopathy. Atherosclerotic vascular calcifications are seen. IMPRESSION: Soft tissue swelling about the right great toe without radiographic evidence for osteomyelitis. However MRI is more sensitive and can be performed if clinically indicated. Multifocal degenerative changes, most prominent at the midfoot. Electronically signed by: Bi Bruno MD (05/01/2020 5:50 PM) [facility] DICTATED and SIGNED BY: BI BRUNO MD DATE: 05/01/20 [id number] [place] [address] IMAGING REPORT Signed PATIENT: SILVERIO PETERSEN ACCOUNT: [id number] : 1950 LOCATION: ER AGE: 69 SEX: F EXAM STATUS: REG ER ORD. PHYSICIAN: ABHISHEK CUELLO APRN REASON: vomiting, diarrhea PROCEDURE: CT ABDOMEN PELVIS WO CONTRAST Exam: CT of abdomen and pelvis without contrast INDICATION: Vomiting and diarrhea TECHNIQUE: Sequential axial images through the abdomen and pelvis obtained without IV contrast. Sagittal and coronal reformatted images were reconstructed from the axial data and reviewed. Comparisons: None FINDINGS: Heart size is normal. No pericardial visualized lung bases are clear. No pleural Evaluation of solid organs is limited secondary to noncontrast technique. Liver, spleen, pancreas, and adrenals are unremarkable. Gallbladder surgically absent. Postsurgical changes of right nephrectomy. No renal or ureteral calculi. No hydronephrosis. Bladder is distended and appears thin-walled. Uterus is not enlarged. No abnormal adnexal mass. Large and small bowel are unremarkable. Appendix is normal. No free intra-abdominal air or fluid. No obstruction. Abdominal aorta has a normal course and caliber. No enlarged abdominal lymph nodes are identified. No suspicious osseous lesions or acute fractures. IMPRESSION: 1. No acute process identified within the abdomen or pelvis. 2. Postsurgical changes of right-sided nephrectomy. Exposure: One or more of the following in the visualized dose reduction techniques were utilized for this examination: 1. Automated exposure control 2. Adjustment of the MA and/or KV according to patient size 3. Use of iterative of reconstructive technique Electronically signed by: Joo Duenas MD (05/01/2020 6:31 PM) [id number] DICTATED and SIGNED BY: JOO DUENAS MD DATE: 05/01/20 1831 Course & Med Decision Making: Course & Med Decision Making Pertinent Labs and Imaging studies reviewed. (See chart for details) Lower extremity 2+ edema. Patient's right great toe is red and dry with a a scabbed area. No drainage. The patient states the toe actually looks a lot better. I told the patient is hard for me to tell if the toe is better because I was not the first want to see it. Educated the patient that she needs to follow-up with her primary care physician who saw the toe at its worst in gave her the antibiotics. Skin pink warm and dry. Pedal pulse present. Nail intact. Abdomen soft and nontender. Patient denies any pain. Patient denies fever, chills, sweats, chest pain, shortness of air, abdominal pain, dizziness, headache. Patient is hemodynamically stable. X-ray of the foot shows no osteomyelitis. CT of the abdomen pelvis shows no acute findings. I will prescribe Zofran for the patient for her nausea to take it with the doxycycline. She can follow-up with her primary care provider. [] Krishan Disclaimer: Krishan Disclaimer: This electronic medical record was generated, in whole or in part, using a voice recognition dictation system. Departure Departure Impression: Primary Impression: Nausea Disposition: HOME, SELF-CARE Condition: STABLE Referrals: JA NOYOLA D.O. (PCP) Patient Instructions: Nausea, Adult Additional Instructions: Take nausea medicine with your antibiotic or right before your antibiotic. Follow-up with your primary care provider for a wound recheck on your toe this week. Finish your antibiotic. Scripts Ondansetron (ONDANSETRON ODT) 4 Mg Tab.rapdis 1 TAB PO PRN Q6-8HRS, #16 TAB Prov: ABHISHEK CUELLO [employer] WORKER 05/01/20 Justicifation of Admission Dx: Justifications for Admission: Justification of Admission Dx: N/A ABHISHEK CUELLO [employer] WORKER May 01, 2020 17:26
[2020-05-01 17:32] LABS: BILIRUBIN,URINE NEGATIVE (NEG); CLARITY,URINE CLEAR; COLOR,URINE YELLOW; NITRITE,URINE NEGATIVE (NEG); PROTEIN,URINE NEGATIVE (NEG-TRACE); UROBILINOGEN,URINE 0.2 mg/dL (0.2 mg/dL)
[2020-05-01 17:35] LABS: BASO # 0.1 x10^3/uL (0.0-0.2); BASO % 1 % (0-3); EOS # 0.2 x10^3/uL (0.0-0.7); EOS % 4 % (0-3); HEMATOCRIT 36.8 % (36.0-47.0); HEMOGLOBIN 12.7 g/dL (12.0-15.5); LYMPH # 2.3 x10^3/uL (1.0-4.8); LYMPH % 37 % (24-48); MEAN CORPUSCULAR HEMOGLOBIN 32 pg (25-35); MEAN CORPUSCULAR HGB CONC 34 g/dL (31-37); MEAN CORPUSCULAR VOLUME 93 fL (79-100); MONO # 0.6 x10^3/uL (0.0-1.1); MONO % 9 % (0-9); NEUT % 49 % (31-73); PLATELET COUNT 148 x10^3/uL (140-400); RED BLOOD COUNT 3.96 x10^6/uL (3.50-5.40); RED CELL DISTRIBUTION WIDTH 13.9 % (11.5-14.5); WHITE BLOOD COUNT 6.2 x10^3/uL (4.0-11.0)
[2020-05-01 17:47] LABS: PROTHROMBIN TIME PATIENT 15.1 SEC (11.7-14.0)
[2020-05-01 17:49] LABS: HYALINE CASTS, URINE MODERATE /HPF; SQUAMOUS EPITHELIAL CELL,UR MOD /LPF
[2020-05-01 17:50] LABS: BACTERIA,URINE 0 /HPF (0-FEW)
--- NOTE | 2020-05-01 17:53 | RAD ---
EXAM: AP, oblique and lateral views right foot DATE: 05/01/2020 5:17 PM INDICATION: Right great toe wound COMPARISON: No Prior FINDINGS: No evidence of acute fracture or dislocation. Midfoot predominant degenerative changes are seen. Soft tissue swelling about the right great toe. No definite erosive/destructive change or periostitis to suggest acute osteomyelitis. Calcaneal enthesopathy. Atherosclerotic vascular calcifications are seen. IMPRESSION: Soft tissue swelling about the right great toe without radiographic evidence for osteomyelitis. However MRI is more sensitive and can be performed if clinically indicated. Multifocal degenerative changes, most prominent at the midfoot. Electronically signed by: Bi Peterson MD (05/01/2020 5:50 PM) [facility]
--- NOTE | 2020-05-01 18:33 | RAD ---
Exam: CT of abdomen and pelvis without contrast INDICATION: Vomiting and diarrhea TECHNIQUE: Sequential axial images through the abdomen and pelvis obtained without IV contrast. Sagittal and coronal reformatted images were reconstructed from the axial data and reviewed. Comparisons: None FINDINGS: Heart size is normal. No pericardial visualized lung bases are clear. No pleural Evaluation of solid organs is limited secondary to noncontrast technique. Liver, spleen, pancreas, and adrenals are unremarkable. Gallbladder surgically absent. Postsurgical changes of right nephrectomy. No renal or ureteral calculi. No hydronephrosis. Bladder is distended and appears thin-walled. Uterus is not enlarged. No abnormal adnexal mass. Large and small bowel are unremarkable. Appendix is normal. No free intra-abdominal air or fluid. No obstruction. Abdominal aorta has a normal course and caliber. No enlarged abdominal lymph nodes are identified. No suspicious osseous lesions or acute fractures. IMPRESSION: 1. No acute process identified within the abdomen or pelvis. 2. Postsurgical changes of right-sided nephrectomy. Exposure: One or more of the following in the visualized dose reduction techniques were utilized for this examination: 1. Automated exposure control 2. Adjustment of the MA and/or KV according to patient size 3. Use of iterative of reconstructive technique Electronically signed by: Joo Morales MD (05/01/2020 6:31 PM) [id number]
[2020-05-01 18:39] LABS: CALCIUM 8.7 mg/dL (8.5-10.1); CREATININE 1.7 mg/dL (0.6-1.0); GFR 29.7; POTASSIUM 4.5 mmol/L (3.5-5.1)
[2020-05-01 18:44] LABS: ALBUMIN 3.2 g/dL (3.4-5.0); ALBUMIN/GLOBULIN RATIO 1.2 (1.0-1.7); TOTAL BILIRUBIN 0.4 mg/dL (0.2-1.0); TOTAL PROTEIN 5.8 g/dL (6.4-8.2)
[2020-05-01] MEDS ORDERED: ONDA4TAB12 PO (18:56)
[2020-05-01 19:05] VITALS: BP 184/73
--- NOTE | 2020-05-02 06:19 | EKG ---
[facility] [address] [place] [address] Test Date: 2020-05-01 Test Time: 17:29:51 Pat Name: SILVERIO PETERSEN Department: Room: Gender: F Analytics Architect: : 1950 Requested By: ABHISHEK CUELLO Order Number: [id number] Reading MD: Measurements Intervals [place] Rate: 61 P: 31 WA: 158 QRS: 30 QRSD: 86 T: 10 QT: 390 QTc: 394 Interpretive Statements SINUS RHYTHM OTHERWISE NORMAL ECG RI6.01 No previous ECG available for comparison
== END 2020-05-01 19:11 | disposition home or self-care (01) ==
LOC: ER 15:58
DX: R11.2 Nausea with vomiting, unspecified (principal); K52.9 Noninfective gastroenteritis and colitis, unspecified; M86.8X7 Other osteomyelitis, ankle and foot; I11.0 Hypertensive heart disease with heart failure; I50.9 Heart failure, unspecified; E11.40 Type 2 diabetes mellitus with diabetic neuropathy, unspecified; E78.00 Pure hypercholesterolemia, unspecified; E03.9 Hypothyroidism, unspecified; M10.9 Gout, unspecified; Z90.49 Acquired absence of other specified parts of digestive tract; Z98.51 Tubal ligation status; Z90.5 Acquired absence of kidney; Z88.8 Allergy status to other drugs, medicaments and biological substances
CPT/HCPCS: 36415; 73630; 74176; 80053; 81001; 83690; 84484; 85025; 85610; 93005; 99285-25